=== PATIENT | female | born 1975 | race Caucasian/White ===

== ENCOUNTER 2023-03-08 09:37 | Outpatient (AMB) | payer MEDICARE, MEDICAID, SELFPAY ==
--- NOTE | 2023-03-08 10:10 | MHC.OFFVIS ---
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 Previous patient of Dr. Valentine. The patient describes her right knee pain as sharp and severe in nature. She did injure her knee approximately 1 year ago. She twisted her knee and had acute onset of pain. Since that time her symptoms have gotten worse in spite of continued non operative treatments. She has done physical therapy for 12 weeks over the last 6 months which aggravated her pain. She has also tried Tylenol and anti-inflammatory medicines which gave her minimal relief. She has had injections in the past which gave her no relief. She states that her right knee will give out several times per day. She has been wearing a knee brace which gives her mild relief. She denies any fevers or chills. Physical Exam Vital Signs: BMI result Body Mass Index 29.1 Const Other: Well-nourished well-developed very friendly female awake alert and oriented x3 in no acute distress Extrem Other: Bilateral lower extremity examination shows good capillary refill, no skin lesions noted, normal sensation light touch Right knee examination shows a minimal effusion, minimal crepitus with range motion, tenderness along her medial joint line, positive Miguel's test, no instability Results Reviewed Results Reviewed: X-rays of the patient's right knee taken today show mild diffuse joint space narrowing, no acute bony abnormalities Assessment & Plan Assessment & Plan (1) Right knee pain: Code(s): M25.561 - Pain in right knee Plan Ms. Napoles presents with progressively worsening right knee pain and mechanical symptoms most likely due to a tear of her medial meniscus. Thus, I will send the patient for an MRI of her right knee for further evaluation. If she does have a significant meniscus tear I will recommend arthroscopic surgery to optimize her future functional level. She will continue with activity modifications in the meantime. I will see the patient back once the MRI is completed to discuss the findings and treatment options. Orders: Orders XR knee RT 3V Today M25.561 - Pain in right knee MR knee RT wo con 1 Week M25.561 - Pain in right knee Coding Level of Care Code Est Pt Level 2 (55199) Diagnoses Right knee pain M25.561
[2023-03-08 10:15] VITALS: BMI 29.1
== END 2023-03-08 11:00 | disposition home or self-care (01) ==
PROVIDERS: Visit Provider Orthopaedic Surgery
DX: M25.561 Pain in right knee (principal)
CPT/HCPCS: 99212

== ENCOUNTER 2023-03-08 12:31 | Outpatient (REF) | payer MEDICARE, MEDICAID, SELFPAY ==
--- NOTE | ~2023-03-08 | XR_ITS ---
EXAMINATION: XR KNEE, RIGHT CLINICAL INFORMATION: Right knee pain COMPARISON: None available. TECHNIQUE: Three views of the right knee. FINDINGS: No evidence for acute fracture or dislocation. There is slight narrowing in the medial joint space compartment. No significant joint effusion. Patellofemoral joint space is maintained. No erosive process. XR/XR knee RT 3V IMPRESSION: No acute process. Slight narrowing in the medial joint space compartment.
== END 2023-03-08 12:32 | disposition home or self-care (01) ==
LOC: HO.HOSX 12:31
PROVIDERS: Visit Provider Orthopaedic Surgery
DX: M25.561 Pain in right knee (principal)
CPT/HCPCS: 73562; 99212

== ENCOUNTER 2023-03-17 09:48 | Outpatient (AMB) | payer MEDICARE, MEDICAID, SELFPAY ==
[2023-03-17 10:11] VITALS: BMI 29.1
--- NOTE | 2023-03-17 10:11 | A.OFFVIS_ITS ---
Intake Vital Signs 03/17/23 10:11 Height 4 ft 11 in Weight 144 lb BMI 29.1 Intake Visit Reasons: MRI Review - Right Knee Intake Note: Rebecca Khalil presents with complaints of progressively worsening right knee pain and giving way. She did undergo left knee arthroscopic surgery in the past he reports minimal discomfort in her left knee. She describes her right knee pain as sharp in nature. Most of the pain is along the medial aspect of her knee. She did injure her right knee several years ago. She twisted her knee and had acute onset of pain. Since that time her symptoms have gotten worse in spite of continued non operative treatments. She has done physical therapy for 12 weeks over the last 6 months which aggravated her pain. She has also had injections in the past which gave her minimal relief. She has tried Tylenol and anti- inflammatory medicines which gave her minimal relief. She states that her right knee will give out several times per day. Allergies acetaminophen [From Ultracet] Allergy (Mild, Verified 03/17/23 10:16) hives penicillin G Allergy (Mild, Verified 03/17/23 10:16) hives tramadol [From Ultracet] Allergy (Mild, Verified 03/17/23 10:16) hives cortisone Allergy (Intermediate, Uncoded 03/17/23 10:16) hives tramadol Allergy (Mild, Uncoded 03/17/23 10:16) hives Medication List - Last Reconciled 03/17/23 by Jonathan Valentine MD albuterol sulfate 90 mcg/actuation (Ventolin HFA) 2 puffs inhalation QID PRN cyclobenzaprine 5 mg PO TID PRN diclofenac sodium 1% grams topical BID loratadine 10 mg PO DAILY rizatriptan mg PO PFSH Social History (Updated 03/17/23 @ 10:20 by YASMIN Law) 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 Physical Exam Vital Signs: BMI result Body Mass Index 29.1 Const Other: Well-nourished well-developed very friendly female awake alert and oriented x3 in no acute distress Extrem Other: Bilateral lower extremity examination shows good capillary refill, no skin lesions noted, normal sensation light touch Right knee examination shows a minimal effusion, minimal crepitus with range of motion, tenderness along her medial joint line, positive Miguel's test, no instability Results Reviewed Results Reviewed: MRI of the patient's right knee shows mild diffuse degenerative changes as well as a tear of the anterior horn of the medial meniscus Assessment & Plan Assessment & Plan (1) Tear of medial meniscus of right knee: Code(s): S83.241A - Other tear of medial meniscus, current injury, right knee, initial encounter Plan Ms. Napoles presents with progressively worsening right knee pain and mechanical symptoms due to a tear of her medial meniscus. I had a lengthy discussion with the patient regarding the treatment options. At this point she has failed continued non operative treatments. The risks and benefits of right knee arthroscopic surgery were discussed at length with the patient. The patient wishes to proceed. She does understand that she might not get 100% relief of her symptoms depending on the severity of her degenerative changes. She will contact my office to pick a surgery date. She will follow-up as instructed. I spent 22 minutes in reviewing the patient's records and imaging studies, seeing the patient and documenting in the medical record. Coding Level of Care Code Est Pt Level 2 (20839) Diagnoses Tear of medial meniscus of right knee S83.241A
== END 2023-03-17 10:26 | disposition home or self-care (01) ==
PROVIDERS: Visit Provider Orthopaedic Surgery
DX: S83.241A Other tear of medial meniscus, current injury, right knee, initial encounter (principal)
CPT/HCPCS: 99212

== ENCOUNTER → 2023-03-17 09:48 | Outpatient (BNVA) | payer MEDICARE, MEDICAID, SELFPAY | PROVIDERS: Visit Provider Orthopaedic Surgery | DX: S83.241D Other tear of medial meniscus, current injury, right knee, subsequent encounter (principal) | CPT/HCPCS: 99212 ==

== ENCOUNTER 2023-04-08 06:17 | Day surgery (SDC) | payer MEDICARE, MEDICAID, SELFPAY ==
[2023-04-06 11:23] VITALS: BMI 29.1
[2023-04-08] VITALS (7 sets, daily range): BP systolic 105–125; BP diastolic 62–80; PULSE 63–78; RESP 15–16; TEMP 36.3–37.2; O2SAT 95–100
--- NOTE | 2023-04-08 07:26 | HO.ANESPROP2 ---
HPI - Anesthesia Eval Consult details Narrative: 47 F for right knee arthroscopy denies any Chest pain , SOB or any other symptoms PMFSH Active Problems Active Problems: All Active Problems (Updated 04/08/23 @ 06:26 by Sonya Duran RN) Tear of medial meniscus of right knee (Acute) Right knee pain (Acute) Past Medical History Medical History (Updated 04/08/23 @ 06:26 by Sonya Duran RN) Asthma Hyperthyroidism Family History Family history of problems with anesthesia: Unobtainable Surgical History Surgical History (Updated 04/08/23 @ 06:25 by Sonya Duran RN) History of partial hysterectomy History of toe surgery History of 3 sections History of arthroscopy of left knee History of shoulder surgery History of Problems with Anesthesia: No Social History Social History (Updated 03/17/23 @ 10:20 by YASMIN Law) Patient Tobacco Use Status: Current everyday Tobacco user Tobacco use type: Cigarette Cigarette Packs Per Day: 0.5 Cigarettes Per Day: 10.0 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 Meds Allergies Allergy/AdvReac Type Severity Reaction Status Date / Time acetaminophen [From Ultracet] Allergy Mild hives Verified 03/17/23 10:16 penicillin G Allergy Mild hives Verified 03/17/23 10:16 tramadol [From Ultracet] Allergy Mild hives Verified 03/17/23 10:16 cortisone Allergy Intermediate hives Uncoded 03/17/23 10:16 tramadol Allergy Mild hives Uncoded 03/17/23 10:16 Active Medications: Current Medications Clindamycin Phosphate (Cleocin) 900 mg in 50 mls @ 50 mls/hr IV PREOP ONE Stop: 04/08/23 08:16 Home Medications Medication Instructions Recorded Confirmed Last Taken Type albuterol sulfate 90 mcg/actuation 2 puff inhalation QID PRN wheezing 03/17/23 04/08/23 04/07/23 History aerosol inhaler (Ventolin HFA) cyclobenzaprine 5 mg tablet 5 mg PO TID PRN muscle spasm 03/17/23 04/08/23 Unknown History diclofenac sodium 1 % topical gel 1 g topical BID 03/17/23 04/08/23 04/07/23 History loratadine 10 mg tablet 10 mg PO DAILY 03/17/23 04/08/23 04/07/23 History rizatriptan 10 mg tablet 10 mg PO DAILY 03/17/23 04/08/23 04/07/23 History aspirin 81 mg tablet,delayed 81 mg PO DAILY 04/08/23 04/08/23 04/07/23 History release atorvastatin 20 mg tablet 20 mg PO DAILY 04/08/23 04/08/23 04/07/23 History cyanocobalamin (vitamin B-12) 1,000 mcg PO DAILY 04/08/23 04/08/23 04/07/23 History 1,000 mcg tablet (Vitamin B-12) doxycycline hyclate 100 mg tablet 100 mg PO Q12H 04/08/23 04/08/23 Unknown History levothyroxine 100 mcg tablet 100 mcg PO DAILY 04/08/23 04/08/23 04/07/23 History pantoprazole 40 mg tablet,delayed 40 mg PO DAILY 04/08/23 04/08/23 04/07/23 History release Exam Exam Date and Time: April 08, [id number] Height,Weight and Vital Signs: Height 4 ft 11 in Weight 65.317 kg Last Vital Signs Temp 98.9 F 04/08/23 06:42 Pulse 76 04/08/23 06:42 Resp 16 04/08/23 06:42 BP 105/67 04/08/23 06:42 Pulse Ox 95 04/08/23 06:42 O2 Del Method Room Air 04/08/23 06:42 Airway Mallampati Class: III Denture: Upper and Lower Loose/Missing/Broken Teeth: Yes Assessment and Plan Assessment Anesthesia Assessment: Anesthesia Plan Discussed and Chart Reviewed Final Anesthetic Review Family History of Problems with Anesthesia: Unobtainable History of Problems with Anesthesia: No NPO: Yes ASA Class: II Final Preanesthetic Review: Meds/Allgs Chart Reviewed, Consent Obtained/Reviewed and Anes Risks/Benef Reviewed Patient Risk: Intermediate Procedure Risk: Intermediate Anesthetic Plan Anesthetic Plan: GA and Agree w/ Assess. and Plan Disposition: Standard PACU
--- NOTE | 2023-04-08 08:34 | PM.OP ---
Brief Operative Note Date of Service: 04/08/23 Pre-op diagnosis: Right knee medial meniscus tear Post-op diagnosis: same Procedure: Right knee arthroscopic partial medial meniscectomy Surgeon: Jonathan Valentine MD Anesthesia: GLMA Was an Layup Worker used for this Procedure?: No Estimated blood loss (mL): 10 Tourniquet time (min): 0 Pathology: none sent Condition: stable Disposition: PACU
--- NOTE | 2023-04-08 08:35 | W.PM.OPN ---
Operative Note Operative Note Date of Service: 04/08/23 Narrative: After the patient was identified as Rebecca Napoles and their right knee was initialed by myself they were brought to the operating room where general anesthesia was induced by the anesthesiologist in routine fashion. Because of the patient's allergy to penicillin she was given 900 mg of IV clindamycin for infection prophylaxis. A formal time-out was completed. The patient's right lower extremity was prepped and draped in sterile fashion. Marcaine with epinephrine was injected into the planned incision sites as well as their left knee joint. A # 11 scalpel blade was used to make an anterolateral portal 1 cm proximal to the joint line and 1 cm lateral to the patellar tendon. Blunt trocar technique was used into the suprapatellar pouch with the knee in extension. Diagnostic arthroscopy showed multiple bands of thickened plica which would be excised at the end of the procedure. There were no loose bodies or abnormalities found in either the medial or lateral gutters. There were diffuse grade 1 degenerative changes of the undersurface of the patella as well as grade 1 degenerative changes of the trochlear groove. The patient's knee was flexed to 45 degrees and a valgus force was placed upon it. The medial compartment was entered. An anteromedial portal was made 1 cm proximal to the joint line and 1 cm medial to the patellar tendon. Probing of the medial meniscus showed a radial tear of the anterior horn. A partial medial meniscectomy was performed using the arthroscopic shaver. Following the partial meniscectomy the remainder of the meniscus tissue was stable. There were diffuse grade 1 degenerative changes of the medial femoral condyle as well as diffuse grade 1 degenerative changes of the medial tibial plateau. The patient's knee was then placed into a neutral position. There was no injury to the anterior cruciate ligament. The patient's knee was then placed into the figure of 4 position and the lateral compartment was entered. There were minimal degenerative changes of the lateral femoral condyle and lateral tibial plateau. There was no evidence of lateral meniscus tearing. The patient's knee was once again brought into extension and the suprapatellar pouch was entered. The arthroscopic shaver and the ArthroCare Wand were used to excise the thickened bands of plica. The knee joint was irrigated and then drained. All arthroscopic instruments were removed. The 2 portals were closed with 3-0 nylon interrupted suture. The knee joint was injected with Marcaine. Dry sterile dressing and Kavon bandages were placed over the patient's knee. The patient was woken and expand the operating room. They were transferred to the recovery room in stable condition.
[2023-04-08] MEDS: oxyCODONE HCl Immed Release 5 MG TABLET PO (09:17)
== END 2023-04-08 09:45 | disposition home or self-care (01) ==
PROVIDERS: PCP Nurse Practitioner Family; Visit Provider Orthopaedic Surgery
PROC: (CPT 29870; principal; 2023-04-08 07:30)
DX: S83.241A Other tear of medial meniscus, current injury, right knee, initial encounter (principal); M17.11 Unilateral primary osteoarthritis, right knee; M67.51 Plica syndrome, right knee; X50.1XXA Overexertion from prolonged static or awkward postures, initial encounter; Y93.9 Activity, unspecified; Y92.9 Unspecified place or not applicable; Y99.8 Other external cause status; J45.909 Unspecified asthma, uncomplicated; E21.3 Hyperparathyroidism, unspecified; Z79.899 Other long term (current) drug therapy; Z79.82 Long term (current) use of aspirin; Z88.0 Allergy status to penicillin; Z88.8 Allergy status to other drugs, medicaments and biological substances; F17.210 Nicotine dependence, cigarettes, uncomplicated
CPT/HCPCS: 29881; J0171; J1100; J2250; J2405; J2795; J3010

== ENCOUNTER → 2023-04-08 06:17 | Outpatient (BNV) | payer MEDICARE, MEDICAID, SELFPAY | PROVIDERS: PCP Nurse Practitioner Family; Visit Provider Orthopaedic Surgery | DX: S83.231A Complex tear of medial meniscus, current injury, right knee, initial encounter (principal) | CPT/HCPCS: 29881 ==

== ENCOUNTER 2023-04-21 09:12 | Outpatient (AMB) | payer MEDICARE, MEDICAID, SELFPAY ==
--- NOTE | 2023-04-21 09:14 | MHC.OFFVIS ---
Intake Intake Visit Reasons: PO-Rt Knee Arthroscopy 04/08/23 Intake Note: Pt presents to the office today for a PO rt knee arthroscopy. Pt states she has pain when she walks and bends her right knee. Pt states she doesn't have swelling. Pt states she can feel severe tightness in her knee when she bends it. Pt states she has not tried ice or heat for the pain. She denies any fevers or chills. She does not take any medicine for her discomfort. Allergies acetaminophen [From Ultracet] Allergy (Mild, Verified 04/21/23 09:14) hives penicillin G Allergy (Mild, Verified 04/21/23 09:14) hives tramadol [From Ultracet] Allergy (Mild, Verified 04/21/23 09:14) hives cortisone Allergy (Intermediate, Uncoded 04/21/23 09:14) hives tramadol Allergy (Mild, Uncoded 04/21/23 09:14) hives Medication List - Last Reconciled 04/21/23 by Jonathan Valentine MD albuterol sulfate 90 mcg/actuation (Ventolin HFA) 2 puffs inhalation QID PRN aspirin 81 mg PO DAILY atorvastatin 20 mg PO DAILY cyanocobalamin (vitamin B-12) (Vitamin B-12) 1,000 mcg PO DAILY cyclobenzaprine 5 mg PO TID PRN diclofenac sodium 1% 1 g topical BID doxycycline hyclate 100 mg PO Q12H levothyroxine 100 mcg PO DAILY loratadine 10 mg PO DAILY oxycodone 5 mg PO Q6H PRN pantoprazole 40 mg PO DAILY rizatriptan 10 mg PO DAILY PFSH Medical History Asthma Hyperthyroidism Surgical History History of partial hysterectomy History of toe surgery History of 3 sections History of arthroscopy of left knee History of shoulder surgery Social History (Updated 04/21/23 @ 09:20 by Delores Sullivan MA) Household Members: Significant Other Housing: House Alcohol intake: never Patient Tobacco Use Status: Current everyday Tobacco user Tobacco use type: Cigarette Cigarette Packs Per Day: 0.5 Cigarettes Per Day: 10.0 Current occupational status: disabled 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 Napoles is doing well after undergoing right knee arthroscopic surgery on April 08 1023. Her sutures were removed and Steri-Strips placed over her incisions. She will gradually progress to activities as tolerated. She will contact me prior to her follow-up appointment in 6 weeks should any questions or concerns arise. Coding Level of Care Code Global (60589) Diagnoses Right knee pain M25.561
== END 2023-04-21 09:42 | disposition home or self-care (01) ==
PROVIDERS: Visit Provider Orthopaedic Surgery
DX: M25.561 Pain in right knee (principal)
CPT/HCPCS: 99024

== ENCOUNTER → 2023-04-21 09:12 | Outpatient (BNVA) | payer MEDICARE, MEDICAID, SELFPAY | PROVIDERS: Visit Provider Orthopaedic Surgery ==

== ENCOUNTER 2023-06-02 09:36 | Outpatient (AMB) | payer MEDICARE, MEDICAID, SELFPAY ==
--- NOTE | 2023-06-02 10:03 | MHC.OFFVIS ---
Intake Intake Visit Reasons: PO -Rt Knee Intake Note: This patient presents for a post op appointment, right knee as on 04/08/23. The patient reports mild intermittent discomfort in her right knee. She denies any fevers or chills. She notices the discomfort mostly when she is sitting with her legs crossed over each other. She denies any locking or giving way. She does use a topical pain cream which gives her good relief. Allergies acetaminophen [From Ultracet] Allergy (Mild, Verified 06/02/23 10:08) hives penicillin G Allergy (Mild, Verified 06/02/23 10:08) hives tramadol [From Ultracet] Allergy (Mild, Verified 06/02/23 10:08) hives cortisone Allergy (Intermediate, Uncoded 06/02/23 10:08) hives tramadol Allergy (Mild, Uncoded 06/02/23 10:08) hives Medication List - Last Reconciled 06/02/23 by Elisabeth Campbell RN albuterol sulfate 90 mcg/actuation (Ventolin HFA) 2 puffs inhalation QID PRN aspirin 81 mg PO DAILY atorvastatin 20 mg PO DAILY cyanocobalamin (vitamin B-12) (Vitamin B-12) 1,000 mcg PO DAILY cyclobenzaprine 5 mg PO TID PRN diclofenac sodium 1% 1 g topical BID doxycycline hyclate 100 mg PO Q12H levothyroxine 100 mcg PO DAILY loratadine 10 mg PO DAILY oxycodone 5 mg PO Q12H PRN pantoprazole 40 mg PO DAILY rizatriptan 10 mg PO DAILY PFSH Medical History Asthma Hyperthyroidism Surgical History History of partial hysterectomy History of toe surgery History of 3 sections History of arthroscopy of left knee History of shoulder surgery Social History (Updated 04/21/23 @ 09:20 by Delores Sullivan MA) Household Members: Significant Other Housing: House Alcohol intake: never Patient Tobacco Use Status: Current everyday Tobacco user Tobacco use type: Cigarette Cigarette Packs Per Day: 0.5 Cigarettes Per Day: 10.0 Current occupational status: disabled 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 Napoles continues to do well after undergoing right knee arthroscopic surgery on 04/08/2023. She will continue with her home exercise program. Activity modifications were discussed at length with the patient. She will contact me prior to her follow-up appointment in 3 months should her symptoms worsen in any way. Feel free to call me at any time should questions regarding her orthopedic management arise. Coding Level of Care Code Global (93214) Diagnoses Right knee pain M25.561
== END 2023-06-02 10:26 | disposition home or self-care (01) ==
PROVIDERS: PCP Nurse Practitioner Family; Visit Provider Orthopaedic Surgery
DX: M25.561 Pain in right knee (principal)
CPT/HCPCS: 99024

== ENCOUNTER → 2023-06-02 09:36 | Outpatient (BNVA) | payer MEDICARE, MEDICAID, SELFPAY | PROVIDERS: PCP Nurse Practitioner Family; Visit Provider Orthopaedic Surgery ==

== ENCOUNTER 2023-09-29 10:45 | Outpatient (AMB) | payer MEDICARE, MEDICAID, SELFPAY ==
--- NOTE | 2023-09-29 11:12 | MHC.OFFVIS ---
Intake Vital Signs 09/29/23 11:37 Height 4 ft 11 in Weight 147 lb BMI 29.7 Intake Visit Reasons: Left knee pain Intake Note: Rebecca is a 48 year old female who presents with complaints of progressively worsening left knee pain and giving way. The patient did undergo right knee arthroscopic surgery on 04/08/2023. She denies any pain in her right knee. She describes her left knee pain as sharp in nature. She did injure her left knee approximately 1 year ago. She twisted her knee and had acute onset of pain. Since that time her symptoms have gotten worse. Most of the pain is along the medial aspect of her knee. She states that her left knee will give out several times per day. She has done physical therapy which aggravated her pain. She has also tried Tylenol and anti-inflammatory medicines which gave her minimal relief. She has had cortisone injections in the past which gave her only temporary relief. Allergies acetaminophen [From Ultracet] Allergy (Mild, Verified 09/29/23 11:39) hives penicillin G Allergy (Mild, Verified 09/29/23 11:39) hives tramadol [From Ultracet] Allergy (Mild, Verified 09/29/23 11:39) hives cortisone Allergy (Intermediate, Uncoded 06/02/23 10:08) hives tramadol Allergy (Mild, Uncoded 06/02/23 10:08) hives Medication List - Last Reconciled 09/29/23 by Jonathan Valentine MD albuterol sulfate 90 mcg/actuation (Ventolin HFA) 2 puffs inhalation QID PRN aspirin 81 mg PO DAILY atorvastatin 20 mg PO DAILY cyanocobalamin (vitamin B-12) (Vitamin B-12) 1,000 mcg PO DAILY cyclobenzaprine 5 mg PO TID PRN diclofenac sodium 1% 1 g topical BID doxycycline hyclate 100 mg PO Q12H levothyroxine 100 mcg PO DAILY loratadine 10 mg PO DAILY oxycodone 5 mg PO Q12H PRN pantoprazole 40 mg PO DAILY rizatriptan 10 mg PO DAILY PFSH Medical History Asthma Hyperthyroidism Surgical History (Updated 09/29/23 @ 11:41 by Ana Moscoso CMA) Hx of right knee surgery (~09/08/23) History of partial hysterectomy History of toe surgery History of 3 sections History of arthroscopy of left knee History of shoulder surgery Social History (Updated 04/21/23 @ 09:20 by Delores Sullivan MA) Household Members: Significant Other Housing: House Alcohol intake: never Patient Tobacco Use Status: Current everyday Tobacco user Tobacco use type: Cigarette Cigarette Packs Per Day: 0.5 Cigarettes Per Day: 10.0 Current occupational status: disabled 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 Physical Exam Vital Signs: BMI result Body Mass Index 29.7 Const Other: Well-nourished well-developed very friendly female awake alert and oriented x3 in no acute distress Extrem Other: Bilateral lower extremity examination shows good capillary refill, no skin lesions noted, normal sensation light touch Left knee examination shows a minimal effusion, minimal crepitus with range of motion, tenderness along her medial joint line, positive Miguel's test, no instability Results Reviewed Results Reviewed: Standing full weight-bearing x-rays of the patient's left knee show minimal joint space narrowing, no acute bony abnormalities Assessment & Plan Assessment & Plan (1) Left knee pain: Code(s): M25.562 - Pain in left knee Plan Ms. Napoles presents with progressively worsening left knee pain and mechanical symptoms most likely due to a tear of her medial meniscus. Thus, I will send the patient for an MRI of her left knee for further evaluation. I will see her back once the MRI is completed to discuss the findings and treatment options. Feel free to call me at any time should questions regarding her orthopedic management arise. I spent 22 minutes in reviewing the patient's records and imaging studies, seeing the patient and documenting in the medical record. Orders: Orders MR knee LT wo con Today S83.242A - Other tear of medial meniscus, current injury, left knee, initial encounter Coding Level of Care Code Est Pt Level 2 (00000) Diagnoses Left knee pain M25.562
[2023-09-29 11:37] VITALS: BMI 29.7
== END 2023-09-29 11:53 | disposition home or self-care (01) ==
PROVIDERS: PCP Nurse Practitioner Family; Visit Provider Orthopaedic Surgery
DX: M25.562 Pain in left knee (principal)
CPT/HCPCS: 99213

== ENCOUNTER → 2023-09-29 10:45 | Outpatient (BNVA) | payer MEDICARE, MEDICAID, SELFPAY | PROVIDERS: PCP Nurse Practitioner Family; Visit Provider Orthopaedic Surgery | DX: M25.562 Pain in left knee (principal) | CPT/HCPCS: 99212 ==

== ENCOUNTER → 2023-11-15 07:56 | Outpatient (REF) | payer MEDICARE, MEDICAID, SELFPAY ==
--- NOTE | ~2023-11-15 | NM_ITS ---
EXAMINATION: RADIONUCLIDE SOLID FOOD GASTRIC EMPTYING 4-HOUR STUDY CLINICAL INFORMATION: Epigastric pain. COMPARISON: No previous gastric emptying study is available for comparison. TECHNIQUE: A standard meal consisting of 4 oz of Egg Beaters brand equivalent tagged with 1.0 mCi Tc-99m Sulfur Colloid, 8 oz water and 2 slices of toast with jelly was administered orally to the patient. Images were obtained using a dual head gamma camera in the anterior and posterior projections over of the stomach immediately post ingestion and at hourly intervals up to 4 hours post ingestion. The anterior and posterior counts at each time interval were averaged using the geometric mean and expressed as percentage of the immediate post ingestion counts. FINDINGS: There is good visualization of activity in the stomach immediately post ingestion. As the study progresses, there is good clearance of activity from the stomach and visualization of progressively increasing small bowel activity. By the end of the study, there is almost no retention noted in the stomach. Retention in the stomach at each time interval was: 1 hour 60% (normal 37%-90%) 2 hours 31% (normal 30%-60%) 3 hours 16% 4 hours 9% (normal 0%-10%) NM/NM gastric emptying study IMPRESSION: Normal 4-hour solid food gastric emptying study. Gastric emptying study grading per JNMT Consensus Recommendations in 2008: https://tech.snmjournals.org/content/36/1/44 Grade 1 (mild retention): 11-20% at 4 hours Grade 2 (moderate retention): 21-35% at 4 hours Grade 3 (severe retention): 36-50% at 4 hours Grade 4 (very severe retention): >50% retention at 4 hours
== END ==
LOC: HO.NUCMED 07:56
PROVIDERS: Visit Provider Internal Medicine Gastroenterology
DX: R10.13 Epigastric pain (principal)
CPT/HCPCS: 78264; A9541

== ENCOUNTER 2024-08-13 13:52 | Outpatient (AMB) | payer MEDICARE, MEDICAID, SELFPAY ==
--- NOTE | 2024-08-13 13:55 | A.SPINEOV_ITS ---
Vital Signs 08/13/24 14:05 Height 4 ft 11 in Weight 147 lb BMI 29.7 Intake Visit Reasons: lower back pain Intake Note: Ms. Napoles is here today c/o low back pain. 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 Allergies acetaminophen [From Ultracet] Allergy (Mild, Verified 08/13/24 14:06) hives penicillin G Allergy (Mild, Verified 08/13/24 14:06) hives tramadol [From Ultracet] Allergy (Mild, Verified 08/13/24 14:06) hives cortisone Allergy (Intermediate, Uncoded 06/02/23 10:08) hives tramadol Allergy (Mild, Uncoded 06/02/23 10:08) hives Physical Exam Vital Signs: BMI result Body Mass Index 29.7 Assessment & Plan Assessment & Plan (1) Lumbar disc herniation: Code(s): M51.26 - Other intervertebral disc displacement, lumbar region Category: Medical Plan This is a self-referred 49-year-old female presents to the office today for evaluation of what 1 month history of severe right leg pain. She awoke with it on the morning of July 13 and since that time it is not relented. It is a severe pain that starts in her buttock and radiates down to the top of her foot. She also has feelings of weakness and loss of sensation in the right foot. No cauda equina symptoms. She has been trialing various algs-ybx-pnkheuy remedies including lidocaine patches, CBD creams, anti-inflammatories, muscle relaxers, Tylenol, gabapentin. She stopped the gabapentin because she did not like how it made her feel. She has been to the emergency room 3 times and underwent a CT scan which showed some disc degeneration. She has attempted physical therapy but it was too painful so they discharged her. She comes in today for an evaluation. The pain is extremely intense, she is unable to sleep, unable to drive get up and move around well at all. The only position she can get comfortable sleeping on her stomach. PMH: History of hyperthyroidism, she had Graves disease and underwent radionucleotide ablation and has been on supplementation since that time and relatively stable. History of migraines, high cholesterol, bilateral knee surgery, , left shoulder surgery, partial hysterectomy, foot surgery Social hx: She smokes half a pack a day, does not drink use any recreational drugs Medications: Levothyroxine, Aimovig, diclofenac, vitamin B12, Zofran, atorvastatin, pantoprazole, tizanidine, meloxicam, Motrin, Tylenol Allergies: Penicillin, trazodone, Ultracet, Physical exam: Patient is awake alert oriented, she is very uncomfortable, walking with an antalgic gait, a lot of difficulty just getting out of a chair. Positive straight leg raise at 20 degrees. Motor exam reveals she has full strength of bilateral lower extremities with intact reflexes. Imaging review: There is a CT scan done at [facility] and this just shows degenerative changes of L4 and L5 but I can not see the nerves or the disc well given the limitations of CT scan. Impression: 49-year-old female who presents with what sounds like an L4-5 herniated disc on the right with fairly classic L5 radiculopathy. She has been doing conservative treatment for a month but the pain is very severe. She attempted physical therapy but it was too intense so they told her that she should go get herself evaluated as they are unable to treat her. She has trialed multiple kjjf-bae-uwloqbs regimens as outlined above. She had a CT scan done but obviously there limitations with that. I will order an urgent MRI. Thank you for allowing us to care for your patient. The total time spent with this visit with this patient was 45 minutes reviewing history, physical exam, lumbar CT imaging review, and implementation of treatment plan or further diagnostic testing Jono Munoz MD,PhD [facility] Orders: Orders MR lumbar spine wo con Today M51.16 - Intervertebral disc disorders with radiculopathy, lumbar region Coding Level of Care Code New Pt Level 4 (18939) Diagnoses Lumbar disc herniation M51.26
[2024-08-13 14:05] VITALS: BMI 29.7
== END 2024-08-13 14:56 | disposition home or self-care (01) ==
PROVIDERS: PCP Nurse Practitioner Family; Visit Provider Physician Assistant
DX: M51.26 Other intervertebral disc displacement, lumbar region (principal)
CPT/HCPCS: 99204

== ENCOUNTER → 2024-08-13 13:52 | Outpatient (BNVA) | payer MEDICARE, MEDICAID, SELFPAY | PROVIDERS: PCP Nurse Practitioner Family; Visit Provider Physician Assistant | DX: M51.26 Other intervertebral disc displacement, lumbar region (principal) | CPT/HCPCS: 99202 ==

== ENCOUNTER 2024-08-16 11:25 | Outpatient (REF) | payer MEDICARE, MEDICAID, SELFPAY ==
--- NOTE | ~2024-08-16 | XR_ITS ---
EXAMINATION: XR SHOULDER 2 OR MORE VIEWS RIGHT HISTORY: M25.511 - Pain in right shoulder COMPARISON: There are no prior studies available for comparison. FINDINGS: Two views of the right shoulder are submitted. Osseous mineralization is normal. There is no fracture or dislocation. There are postsurgical changes involving the the AC joint. The glenohumeral joint is maintained. There are suture anchors in the humeral head. The soft tissues are unremarkable. XR/XR shoulder RT min 2V IMPRESSION: Postsurgical changes involving the right shoulder is scribe. No evidence of fracture. Electronically signed by: Solomon Gurrola MD 08/20/2024 02:16 PM SHELLY
== END 2024-08-16 11:26 | disposition home or self-care (01) ==
LOC: HO.HOSX 11:25
PROVIDERS: Visit Provider Orthopaedic Surgery
DX: M25.511 Pain in right shoulder (principal); M54.2 Cervicalgia; M51.26 Other intervertebral disc displacement, lumbar region
CPT/HCPCS: 73030; 99212

== ENCOUNTER 2024-08-16 14:40 | Outpatient (AMB) | payer MEDICARE, MEDICAID, SELFPAY ==
--- NOTE | 2024-08-16 14:43 | A.SPINEOV_ITS ---
Intake Visit Reasons: Lumbar MRI f/u Intake Note: Ms. Napoles is here to F/u on the results to her Lumbar MRI. 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 This shows a small but right-sided L4-5 posterior disc herniation that is displacing the right L5 nerve root posteriorly. Dr. Munoz and I reviewed this together, we have met with the patient, and offered her L4-5 microdiskectomy right side. We quoted success rate at 90%. She has done conservative treatment in the form of tincture of time, anti-inflammatories, Tylenol. She trialed physical therapy but they sent her home because she was in just too much pain to tolerate it. Pt was given risk and benefits of surgery including but not limited to infection, hematoma , nerve injury,durotomy, weakness,bowel/bladder injury, persistent pain, recurrent disc herniation as well as the option to continue with conservative treatment and patient wishes to proceed with surgery. Pt is aware they should stop their motrin, aspirin 7 days prior to surgery. All questions were answered to the best of our ability. If there is anything about this patients medical history that we have overlooked or concerns you have about us proceeding with surgery we would appreciate any input you can offer. Total amount of time spent in this visit was 20 minutes in discussion of symp toms, lumbar MRI imaging results and subsequent plan of care Jono Munoz MD,PhD [facility] Coding Level of Care Code Est Pt Level 3 (52930) Diagnoses Lumbar disc herniation M51.26
== END 2024-08-16 15:53 | disposition home or self-care (01) ==
PROVIDERS: PCP Nurse Practitioner Family; Visit Provider Physician Assistant
DX: M51.26 Other intervertebral disc displacement, lumbar region (principal)
CPT/HCPCS: 99213

== ENCOUNTER 2024-08-16 15:17 | Outpatient (AMB) | payer MEDICARE, MEDICAID, SELFPAY ==
[2024-08-16 15:22] VITALS: BMI 29.7
--- NOTE | 2024-08-16 15:22 | MHC.OFFVIS ---
Vital Signs 08/16/24 15:22 Height 4 ft 11 in Weight 147 lb BMI 29.7 Intake Visit Reasons: NProb- Right shoulder pain Intake Note: Rebecca is a 49 year old female who presents with complaints pain along the posterior aspect of her right shoulder. She also has intermittent neck pain. The patient states that she is due to undergo low back surgery by Dr. Munoz over the next few weeks. She denies any weakness in her shoulder. She has undergone right shoulder rotator cuff repair surgery in the past. She denies any fevers or chills. Allergies acetaminophen [From Ultracet] Allergy (Mild, Verified 08/16/24 15:23) hives penicillin G Allergy (Mild, Verified 08/16/24 15:23) hives tramadol [From Ultracet] Allergy (Mild, Verified 08/16/24 15:23) hives cortisone Allergy (Intermediate, Uncoded 08/16/24 15:23) hives tramadol Allergy (Mild, Uncoded 08/16/24 15:23) hives Medication List - Last Reviewed 08/16/24 by NAYAN Baires albuterol sulfate 90 mcg/actuation (Ventolin HFA) 2 puffs inhalation QID PRN aspirin 81 mg PO DAILY atorvastatin 20 mg PO DAILY cyanocobalamin (vitamin B-12) (Vitamin B-12) 1,000 mcg PO DAILY cyclobenzaprine 5 mg PO TID PRN diclofenac sodium 1% 1 g topical BID levothyroxine 100 mcg PO DAILY loratadine 10 mg PO DAILY pantoprazole 40 mg PO DAILY rizatriptan 10 mg PO DAILY PFSH Medical History (Updated 08/16/24 @ 15:46 by Jonathan Valentine MD) Asthma Hyperthyroidism Surgical History (Updated 09/29/23 @ 11:41 by Ana Moscoso CMA) Hx of right knee surgery (~04/08/23) History of partial hysterectomy History of toe surgery History of 3 sections History of arthroscopy of left knee History of shoulder surgery Social History (Updated 04/21/23 @ 09:20 by Delores Sullivan CMA) Household Members: Significant Other Housing: House Alcohol intake: never Patient Tobacco Use Status: Current everyday Tobacco user Tobacco use type: Cigarette Cigarette Packs Per Day: 0.5 Cigarettes Per Day: 10.0 Current occupational status: disabled 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 Physical Exam Vital Signs: BMI result Body Mass Index 29.7 Const Other: Well-nourished well-developed very friendly female awake alert and oriented x3 in no acute distress Neck Other: Cervical spine examination shows positive Spurling's test, pain with range of motion, tenderness along her right-sided paraspinal muscles Extrem Other: Right shoulder examination shows full range of motion when compared to her left shoulder, 5/5 strength with supraspinatus testing, minimal discomfort with range of motion Results Reviewed Results Reviewed: X-rays of the patient's right shoulder taken today show bony changes consistent with distal clavicle excision and acromioplasty, 2 suture anchors within the proximal humerus with no signs of loosening Assessment & Plan Assessment & Plan (1) Neck pain: Code(s): M54.2 - Cervicalgia Category: Medical Plan Ms. Napoles presents with pain along the posterior aspect of her right shoulder most likely due to cervical spine pathology. At this point the patient's symptoms are tolerable to her. We will hold off on getting an MRI. The patient will follow-up for her low back surgery next month as scheduled. I will see her back once she has recovered from surgery. Feel free to call me at any time should questions regarding her orthopedic management arise. I spent 20 minutes in reviewing the patient's records and imaging studies, seeing the patient and documenting in the medical record. Orders: Orders XR shoulder RT min 2V Today M25.511 - Pain in right shoulder Coding Level of Care Code Est Pt Level 3 (23294) Complex EM visit Add On G2211 Diagnoses Neck pain M54.2
== END 2024-08-16 15:37 | disposition home or self-care (01) ==
PROVIDERS: PCP Nurse Practitioner Family; Visit Provider Orthopaedic Surgery
DX: M54.2 Cervicalgia (principal)
CPT/HCPCS: 99213; G2211

== ENCOUNTER → 2024-08-27 12:45 | Outpatient (BNV) | payer MEDICARE, MEDICAID, SELFPAY | PROVIDERS: Visit Provider Internal Medicine | DX: R94.31 Abnormal electrocardiogram [ECG] [EKG] (principal) | CPT/HCPCS: 93010 ==

== ENCOUNTER 2024-09-06 06:36 | Day surgery (SDC) | payer MEDICARE, MEDICAID, SELFPAY ==
--- NOTE | 2024-08-27 | ECG_ITS ---
Test Reason : PREOP Blood Pressure : */* mmHG Vent. Rate : 60 BPM Atrial Rate : 60 BPM P-R Int : 134 ms QRS Dur : 74 ms QT Int : 456 ms P-R-T Axes : 48 20 -2 degrees QTcB Int : 456 ms Normal sinus rhythm Nonspecific ST and T wave abnormality Abnormal ECG No previous ECGs available Referred By: Neli Potts Electronically Signed By: COLLEEN CABALLERO
[2024-08-27 12:01] VITALS: BP 120/69; PULSE 81; RESP 16; BMI 29.7
[2024-08-27 13:22] LABS: Hemoglobin 14.5 g/dl (12.0-16.0); Mean Corpuscular HGB Conc 32.2 g/dl (31.0-35.0); Mean Corpuscular Hemoglobin 29.7 pg (27.0-33.0); Mean Corpuscular Volume 92.2 fL (80.0-98.0); Mean Platelet Volume 9.6 fL (9.4-12.3); Platelet Count 330 X10*3/uL (160-400); Red Blood Count 4.88 X10*6/uL (4.20-5.50); Red Cell Distribution Width 12.3 % (11.0-16.0); White Blood Count 10.8 X10*3/uL (4.8-10.8)
[2024-08-27 13:50] LABS: Anion Gap 13 (12-20); Blood Urea Nitrogen 11 mg/dL (9-16); Calcium 9.5 mg/dL (8.4-10.2); Carbon Dioxide 25 mmol/L (22-29); Chloride 108 mmol/L (96-108); Creatinine Clr Calc Pharmacy 71.7; Estimated Glomerular Filt Rate > 60; Glucose Random 99 mg/dL (60-115); Potassium 3.9 mmol/L (3.3-5.1); Sodium 142 mmol/L (135-145)
--- NOTE | ~2024-09-06 | FL_ITS ---
EXAMINATION: FL GUIDANCE ONLY HISTORY: L4-L5 microdiscectomy Right COMPARISON: None available. TECHNIQUE: Fluoroscopy time: Less than 1 minute. Cumulative Dose: 1.58 mGy. DAP: 0.317 mGym2 Images: 2. FINDINGS: Fluoroscopic spot films of the lumbar spine in the lateral projection demonstrate a probe directed toward the L4 vertebral body from a posterior approach and a probe directed toward the L4-5 intervertebral disc space from a posterior approach. FL/FL guidance in OR IMPRESSION: Fluoroscopy during procedure. Please see procedure report for additional information. Electronically signed by: Solomon Gurrola MD 09/06/2024 10:36 AM [facility]
--- OUTSIDE RECORDS SUMMARY | 2024-09-06 06:38 | XMS_ITS | Clinical Summary ---
Author Organization [facility] Address [address] [place] [address] Care Team Providers Care Automotive Engineering Technician Name Role Phone Karma Mace Primary Care Provider [phone] Allergies Active Allergy Reactions Criticality Noted Date Comments Adhesive Tape Cortisone Hives Penicillins Hives Tramadol Hives Tramadol-Acetaminophen Hives Trazodone Other (See Comments) 02/23/2022 Medications Medication Sig Dispensed Refills Start Date End Date Status levothyroxine (SYNTHROID, LEVOXYL) tablet 112 mcg levothyroxine 112 mcg tablet 0 Active omeprazole (PRILOSEC) 20 MG capsule omeprazole 20 mg capsule,delayed release 0 Active PARoxetine (PAXIL) 20 MG tablet paroxetine 20 mg tablet 0 Active SUMAtriptan (IMITREX) 50 MG tablet sumatriptan 50 mg tablet 0 Active SHIRA 0.35 MG tablet 0 01/09/2018 Active venlafaxine (EFFEXOR-XR) 75 MG 24 hr capsule 0 01/09/2018 Active oxyCODONE (ROXICODONE) 5 MG immediate release tablet Take 1 to 2 tabs every 4 hours as needed for pain 60 tablet 0 08/07/2019 Active Norethindrone (SHIRA PO) Shira 0.35 mg tablet TAKE 1 TABLET BY MOUTH EVERY DAY 0 Active cyclobenzaprine (FLEXERIL) 5 MG tablet cyclobenzaprine 5 mg tablet 0 Active escitalopram (LEXAPRO) tablet 10 mg Take 10 mg by mouth daily. 0 09/23/2020 Active hydrOXYzine (ATARAX) 25 MG tablet Take 25 mg by mouth 3 (three) times a day as needed. for anxiety 0 10/14/2020 Active nortriptyline (PAMELOR) 10 MG capsule nortriptyline 10 mg capsule TAKE 1 CAPSULE BY MOUTH AT BEDTIME 0 Active HYDROcodone-aceta minophen (NORCO) 5-325 MG per tablet Take 1-2 tabs every 8 hours as needed for pain 40 tablet 0 04/14/2021 Active Diclofenac Sodium 1 % GEL PLEASE SEE ATTACHED FOR DETAILED DIRECTIONS 0 02/06/2022 Active Aspirin Low Dose 81 MG EC tablet Take 1 tablet (81 mg total) by mouth daily. 0 04/28/2022 Active atorvastatin (LIPITOR) tablet 20 mg 0 06/06/2022 Active Aimovig 70 MG/ML SOAJ INJECT 70 MG UNDER THE SKIN EVERY 28 DAYS 0 05/28/2022 Active meclizine (ANTIVERT) 12.5 MG tablet TAKE 1 TABLET BY MOUTH 3 TIMES A DAY NEEDED FOR DIZZINESS FOR 7 DAYS 0 04/15/2022 Active ondansetron (ZOFRAN) 8 MG tablet TAKE 1 TABLET BY MOUTH EVERY 8 HOURS NEEDED FOR NAUSEA AND VOMITING FOR 14 DAYS 0 05/27/2022 Active atorvastatin (LIPITOR) tablet 20 mg Take 1 tablet (20 mg total) by mouth. 0 05/10/2022 Active dicyclomine (BENTYL) 10 MG capsule TAKE 1 TABLET ORALLY 2-4 TIMES A DAY 0 04/21/2022 Active pantoprazole (PROTONIX) 20 MG tablet Take 1 tablet (20 mg total) by mouth. 0 04/28/2022 Active Active Problems Problem Noted Date Diagnosed Date Chronic right shoulder pain 08/29/2018 Postop check 04/06/2018 Social History Tobacco Use Types Packs/Day Years Used Date Smoking Tobacco: Former Smokeless Tobacco: Never Alcohol Use Standard Drinks/Week Comments No 0 (1 standard drink = 0.6 oz pur e alcohol) Sex and Gender Information Value Date Recorded Sex Assigned at Not on file Gender Identity Not on file Sexual Orientation Not on file Job Start Date Occupation Industry Not on file Not on file Not on file Last Filed Vital Signs Vital Sign Reading Time Taken Comments Blood Pressure - - Pulse - - Temperature - - Respiratory Rate - - Oxygen Saturation - - Inhaled Oxygen Concentration - - Weight 64.4 kg (142 lb) 01/11/2018 2:21 PM EDT Height 149.9 cm (4' 11 ) 01/11/2018 2:21 PM EDT Body Mass Index 28.68 01/11/2018 2:21 PM EDT Plan of Treatment Health Maintenance Due Date Last Done Comments Hepatitis B Vaccines (1 of 3 - 3-dose series) 1973 Hepatitis C Screening 1973 Depression Screening 1985 Preventative Health Evaluation 1991 DTap / Tdap / Td (1 - Tdap) 1992 Cervical Cancer Screening (Pap Smear) 1994 Colon Cancer Screening (Colonoscopy) 2018 Breast Cancer Screening (Mammogram) 2023 Shingrix-Zoster Vaccine (1 o f 2) 2023 COVID-19 Vaccine (4 - 2023-2 5 season) 2024 08/04/2021, 12/24/2020, 12/03/2020 Influenza Vaccine (#1) 2024 Pneumococcal Vaccine Aged Out No long er eligible based on patient's age to complete this topic RSV Ped < 20 months Aged Out No longe r eligible based on patient's age to complete this topic Care Teams Automotive Engineering Technician Relationship Specialty Start Date End Date Karma Mace [address] [id number] [facility] [place] [id number] PCP - General Family Medicine 01/02/18
--- OUTSIDE RECORDS SUMMARY | 2024-09-06 06:38 | XMS_ITS | Data Portability ---
Author Organization [facility] [place], [facility], [facility] Main Office Address [address] [place] [phone] Care Team Providers Care Scrap Collector Name Role Phone WILFREDO HAYNES Primary Care Provider DALLASWILFREDO AVLERO Referring Provider [phone] Assessment Encounter Date Assessment Date Assessment LastModified by Organization Details LastModified Time 10/22/2020 10/22/2020 This patient has dorsal left hand pain of several months duration. It is unclear on her physical examination what is causing the pain because she does not have any obvious pinpoint tenderness. We had a lengthy question and answer session lasting over 30 minutes today going over her medical findings. I have recommended we get baseline x-rays to determine if there is any structural issues that could be a cause of her symptoms. I do have some concern that she could be having some manifestations of nerve issues related to the cervical spine and it might be necessary to consider repeat neurodiagnostic studies. All questions were answered and I have recommended x-rays. I will give the patient a call to go over her x-rays and develop a further treatment plan going forward. [email or web address] Not available 10/22/2020 15:33:58 Plan of Treatment Reminders Order Date Submit Date Provider Last Modified By Organization Details Last Modified Time Details Appointments None record ed. Lab None record ed. Referral None record ed. Procedures None record ed. Surgeries None record ed. Imaging None record ed. Medication Orders None record ed. Patient TargetsNo targets recorded. Patient InstructionsNo instructions recorded. Reason for Referral None Reported. Results Created Date Observation Date Name Description Value Unit Range Abnormal Flag Note LastModifiedBy Organization Detail LastModifiedTime 10/23/19 21 10/22/2020 XR, wrist , 3 or more view [facility] [address] [place], [address] [phone] Name: Maggie JOHNSON : [id number] Date of Servic e: 1533 Acct Number : [id number] Order Number : [id number] Locati on: W[facility] Report Number : [id number] Servic e: REG REF/ Reques ting Physic yohannes: Elena matthews,Corky Villa MD Catego ry: ORTHOP EDIC RADIOL OGY SV Exam: WRIST 3 VIEW MINIMI M Left Access ion #: [id number] VH Signs/ Sympto ms: PAIN ASSESS FOR BONE OR JOINT PATHOL OGY Report Status : Sig gilbert Left wrist, 3 views Left hand, 3 views Histor y: PAIN ASSESS FOR BONE JOINT PATHOL OGY Compar galdino: None. Bony struct ures and alignm ent are intact . Joint spaces are intact . Articu lar margin s are well mainta ined. Carpus is intact . No fractu re is seen. Soft tissue s are mainta ined. Impres paty: No fractu re is seen. Date/T paula of Dictat ion: 1550 Radiol ogy Reside nt (if applic able): Approv ed By Attend ing Radiol ogist: Blaze Uriarte MD 1550 Orderi ng physic yohannes: Orlando matthews Other provid ers: Krystin Parker er, Krystin Parker er, , Non Physic yohannes, , , [facility] (Radiology) [address] [place] [address], [id number], 09/10/2021 10:57:15 10/23/19 21 10/22/2020 XR, hand, 3 or more view [facility] [address] [place] [address], [phone] Name: Maggie JOHNSON : [id number] Date of Servic e: 1533 Acct Number : [id number] Order Number : [id number] Locati on: W[facility] Report Number : [id number] Servic e: REG REF/ Reques ting Physic yohannes: Elena matthews,Corky Villa MD Catego ry: ORTHOP EDIC RADIOL OGY SV Exam: HAND 3 VIEW MINIMU M Left Access ion #: [id number] VH Signs/ Sympto ms: PAIN ASSESS FOR BONE JOINT PATHOL OGY Report Status : Sig gilbert Left wrist, 3 views Left hand, 3 views Histor y: PAIN ASSESS FOR BONE JOINT PATHOL OGY Compar galdino: None. Bony struct ures and alignm ent are intact . Joint spaces are intact . Articu lar margin s are well mainta ined. Carpus is intact . No fractu re is seen. Soft tissue s are mainta ined. Impres paty: No fractu re is seen. Date/T paula of Dictat ion: 1550 Radiol ogy Reside nt (if applic able): Approv ed By Attend ing Radiol ogist: Blaze Uriarte MD 1550 Orderi ng physic yohannes: Orlando matthews Other provid ers: Krystin Parker er, Krystin Parker er, , Non Physic yohannes, , , [facility] (Radiology) [address] [place] [address], [id number], 09/10/2021 10:57:15 Result Notes None recorded. Problems Name Problem SNOMED Code Status Onset Date Resolution Date Notes Provider Name and Address Organization Details Recorded Time Hypertensive disorder 05771550 Active 2020 Jessica henderson [place] - [facility], [facility] 14:50:19 Anxiety 40781326 Active 2020 Jessica henderson [place] - [facility], [facility] 14:50:27 Hyperlipidemia 97126916 Active 2020 Jessica henderson [place] - [facility], [facility] 14:50:37 Problem Notes None recorded. Procedures Surgical History None recorded. Imaging Results Imaging Date Name Status LastModified by Organiz ation Details LastModified Time 10/22/2020 XR, wrist, 3 or more view completed [facility] (Radiology) [address] [place] [address], [id number], 09/10/2021 10:57:15 10/22/2020 XR, hand, 3 or more view completed [facility] (Radiology) [address] [place], [address], 09/10/2021 10:57:15 Procedure Notes None recorded. Medical Equipment None Reported. Allergies Allergen ID Allergen Name Allergen Category Reaction Reaction Severity Criticality Documentation Date Start Date Code Code System Note Provider Name and Address Organization Details Recorded Time 64418 cortisone medicatio n Not available Not available Not available 10/22/2020 2878 RxNorm Jessica henderson, [place] - [facility], [facility] 14:46:46 12839 penicilli n V Not available Not available Not available Not available 10/22/2020 7984 RxNorm Jessica henderson, [place] - [facility] [place], [facility] 14:46:55 16310 Ultracet medicatio n Not available Not available Not available 10/22/2020 41321 2 RxNorm Jessica hend[place]on, [place] - [facility], [facility] 14:47:03 26130 Ultram medicatio n Not available Not available Not available 10/22/2020 59121 6 RxNorm Jessica henderson, [place] - [facility], [facility] 14:47:17 Medications Name Sig Start Date Stop Date Status Note LastModified by Organization Details LastModified Time cyclobenzap rine 10 mg tablet TAKE 1 TABLET BY MOUTH 3 TIMES A DAY NEEDED FOR SPASM active Not Available Not Available No t Available azithromyci n 250 mg tablet TAKE 2 TABLETS BY MOUTH TODAY, THEN TAKE 1 TABLET DAILY FOR 4 DAYS 10/22 completed Not Available Not Available Not Available sumatriptan 100 mg tablet TAKE 1 TABLET BY MOUTH EVERY DAY NEEDED FOR MIGRAINE HEADACHE active Not Available Not Available No t Available hydrocodone 5 mg-acetamin ophen 325 mg tablet TAKE 1 TO 2 TABLETS BY MOUTH EVERY 6 HOURS NEEDED FOR PAIN 10/22 completed Not Available Not Available Not Available ondansetron HCl 8 mg tablet TAKE 1 TABLET BY MOUTH EVERY 8 HOURS NEEDED FOR NAUSEA/VO MITING FOR 14 DAYS active Not Available Not Available No t Available ondansetron HCl 4 mg tablet 10/22 completed Not Available Not Available Not Available prednisone 20 mg tablet TAKE 2 TABLETS BY MOUTH EVERY DAY FOR 5 DAYS 10/22 completed Not Available Not Available Not Available triamcinolo ne acetonide 0.5 % topical ointment APPLY A THIN FILM TOPICALLY TWICE A DAY FOR 14 DAYS 10/22 completed Not Available Not Available Not Available levothyroxi ne 100 mcg tablet TAKE 1 TABLET BY MOUTH EVERY DAY active Not Available Not Available No t Available levothyroxi ne 88 mcg tablet TAKE 1 TABLET BY MOUTH EVERY DAY 10/22 completed Not Available Not Available Not Available nortriptyli ne 10 mg capsule TAKE 1 CAPSULE BY MOUTH AT BEDTIME active Not Available Not Available No t Available omeprazole 20 mg capsule,del ayed release TAKE 1 CAPSULE BY MOUTH TWICE A DAY TO TREAT H PYLORI active Not Available Not Available No t Available hydroxyzine HCl 25 mg tablet active Not Available Not Available Not Available fluocinonid e 0.05 % topical solution APPLY TO THE SCALP 2 TIMES DAILY FOR 3 WEEKS. active Not Available Not Available No t Available ketoconazol e 2 % topical cream APPLY TO FEET TWICE A DAY FOR 4 WEEKS 10/22 completed Not Available Not Available Not Available clotrimazol e 1 % topical cream APPLY TO AFFECTED AREA TWICE A DAY FOR 14 DAYS 10/22 completed Not Available Not Available Not Available escitalopra m 10 mg tablet 10/22 completed Not Available Not Available Not Available cyclobenzap rine 5 mg tablet TAKE 1 TABLET BY MOUTH 3 TIMES A DAY NEEDED FOR MUSCLE SPASM 10/22 completed Not Available Not Available Not Available Garlique active Not Available Not Avai lable Not Available Vitals Date Recorded Body height Body mass index (BMI) Body weight Provider Name and Address Organization Details Last Updated DateTime 10/22/2020 149.86 cm 28.9 kg/m2 36767.71 g Jessica Cavanaugh [facility], [facility] 10/22/2020 14:46:27 Social History None recorded. Functional Status None recorded. Mental Status None recorded. Family History Nothing Reported. Medical History No medical history recorded. Gynecological HistoryNo gynecological history recorded. Obstetrics History GPAL:G 0 P 0 0 0 0 Past Encounters Encounter ID Performer Location Encounter Start Date Encounter Closed Date Diagnosis/Indication Diagnosis SNOMED-CT Code Diagnosis ICD10 Code Diagnosis Note [id number] Ananth Arana MD S Main Office [address] [place] [address],[address] [place] [address] 10/22/2020 14:38:17 10/23/2020 10:42:43 Pain of left hand 8961889638 99374 M79.642 Health Concerns Section Related Observation LastModified by Organization Detai ls LastModified Time None Recorded Concern Status LastModified by Organization Details LastModified Time None Recorded Advance Directives Directive None Recorded Payers Encounter Date Sequence Insurance Name Policy Number Policy Estes Covered Member ID Estes Member ID Guarantor Name 10/22/2020 1 [place] [employer] Rebecca Rossy Dony [id number] Rebecca Johnson 10/22/2020 2 [place] [facility] Rebecca Rossy Dony [id number] Rebecca Johnson Notes Date Note Type Note Provider Name and Address Organization Details Recorded Time 10/22/2020 text/html This patient presents with a several month history of left dorsal hand and wrist pain. She has a history of previous carpal tunnel releases bilaterally. She also states that she has a history of cervical disc disease but apparently it is nonoperative at this point she does suggest that she gets some nocturnal awakenings and some shooting pains down her hands. She has not had any treatment for these new symptoms of dorsal hand and wrist pain she describes weakness as well as discomfort. Ananth Arana MD [address] [place] [address],[address], [place], [phone], [facility] - [facility] [place], [facility] 10/22/2020 15:35:04 OBGyn Episode No OBEpisode recorded.
--- NOTE | 2024-09-06 07:04 | MHC.SHP ---
Pre-Procedural Eval Section A - 24 Hr Update-Section A only Date of Service: 09/06/24 The patient is an INPATIENT: No Changes since office visit: No Cold of Flu in the past 2 weeks, No New Medical Problems, No Changes in Medication and No Patient answered all questions The patient has been examined within 24 hours of the surgical procedure. The History & Physical has been completed within 30 days and I have reviewed it.: No Section B - Complete if H&P > 30 days Chief Complaint: Other intervertebral disc displacement, lumbar reg Allergies: Allergies Allergy/AdvReac Type Severity Reaction Status Date / Time Penicillins Allergy Severe Hives Verified 08/27/24 12:12 tramadol [From Ultracet] Allergy Severe hives Verified 08/27/24 12:12 cortisone Allergy Severe hives Uncoded 08/27/24 12:12 Review of Systems Sugical H&P ROS: Negative: Constitution, Cardiovascular, Respiratory, Neurological, Psychiatric, Hem-Onc, Allergic/Immunologic, Gastrointestinal, Genitourinary, Musculoskeletal, Integumentary, Endocrine and Eyes/Ears/Nose/Throat Exam Surgical H&P Exam: Normal: HEENT, Normal: Heart, Normal: Lungs, Normal: Extremities, Normal: Abdomen, Normal: Skin and Normal: Neurological (awake, alert,oriented x 3 ) Plan Diagnosis/Plan: Unchanged right L4-5 microdiskectomy Time Spent With Patient Time: Total time managing care of this patient today _5___ minutes.
--- NOTE | 2024-09-06 07:05 | P.DS_ITS ---
DS: Providers Provider Date of Service: 09/06/24 Date of discharge: 09/06/24 Primary care physician: Unknown Physician Admitting clinician: Kory Munoz DS: Diagnosis Discharge Diagnosis (1) Lumbar disc herniation: Status: Acute DS: Summary Time Attestation Discharge Coordination Time (in mins): 6 Quality: Safe Use of Opioids Does Pt have an Active Cancer Diagnosis on the Problem List?: No Quality: Stroke Does the patient have a stroke diagnosis?: No Physical Exam Vital Signs: Vital Signs: Last Vital Signs Pulse 81 08/27/24 12:01 Resp 16 08/27/24 12:01 BP 120/69 08/27/24 12:01 BMI result Body Mass Index 29.7 Discharge Plan Discharge Patient Disposition: Home, Self-Care Referrals: Physician,Unknown J [Primary Care Provider] - 1 Week Discharge Medications: New docusate sodium [Colace] 100 mg capsule 100 mg PO BID Qty: 20 0RF oxycodone 5 mg tablet 5 mg PO Q4H PRN (Reason: pain) Qty: 30 0RF Rx Instructions: Partial Fill upon patient request. Continued atorvastatin 20 mg tablet 20 mg PO DAILY cyanocobalamin (vitamin B-12) [Vitamin B-12] 1,000 mcg tablet 1,000 mcg PO DAILY levothyroxine 100 mcg tablet 100 mcg PO DAILY pantoprazole 40 mg tablet,delayed release (DR/EC) 40 mg PO DAILY Aimovig Autoinjector 70 mg/mL auto-injector 70 mg SUBCUT Q28D acetaminophen 650 mg tablet extended release 650 mg PO Q8H PRN (Reason: pain) ondansetron HCl 8 mg tablet 8 mg PO Q8H PRN (Reason: nausea/vomiting) rizatriptan 10 mg tablet 10 mg PO DAILY PRN (Reason: Heartburn) diclofenac sodium 1 % gel 1 g topical BID albuterol sulfate [Ventolin HFA] 90 mcg/actuation HFA aerosol inhaler 2 puff inhalation QID PRN (Reason: wheezing) Held aspirin 81 mg tablet,delayed release (DR/EC) 81 mg PO DAILY Hold Instructions: Resume on 09/13/24. You can resume asprin 7 days after surgery Discharge Orders: Discharge Order (Routine); Ordered 09/06/24 Ordered By: Jono Burrell Diet: Advance to usual diet Activity on Discharge: As tolerated Activity Restrictions/Additional Instructions: After your spinal surgery we ask you to observe the following restrictions/guidelines: Activity: It is normal to feel some discomfort as you increase your activity, but that will improve with time. We ask you avoid heavy lifting or acitivities that cause pain. As a general rule, 8lbs is a safe limit for lifting right after surgery. Walk as much as you feel comfortable but not to exhaustion. You will feel extra tired the first few days after surgery. Stay well hydrated. It is OK to walk up and down stairs You may return to driving when you are off narcotics (such as vicodin, oxycodone, dilaudid, etc), and you are back to normal functional capacity. If you have any concerns please check with office before driving. Return to work is specific to each patient and each surgery, so please speak with your doctor/PA at first follow up. Please bring paperwork such as FMLA at that time if you need it filled out. Medications: For optimum pain control, it is best to start with a combination of 500 mg of Tylenol every 4 hours with 600 mg of Motrin every 8 hours, and use narcotics as needed in between for breakthrough pain. We will give you a short supply of narcotics after surgery (usually one weeks worth). If you need more please call the office but do not use more than prescribed. You will need to give our office 48 hours notice if you need narcotics refilled and we do not fill narcotics on weekends or evenings. If you are on a narcotic, it is a good idea to take a stool softener such as colace or senna to avoid constipation If you take blood thinner such as aspirin, Plavix, Coumadin, Effient, Eliquis etc for conditions such as Afib, DVT, Pulmonary embolus, coronary disease, sten ts etc please speak with your surgeon about specific details as to when you can resume these medications. You can resume NSAIDs on post op day 1 (eg: Motrin, Naproxen, etc). Follow up: Please call the office, , after surgery to arrange a 3 week follow up for wound check. Wound Care: You may remove your dressing on the first day after surgery. ?You may ?leave open to air. Please do not remove the steri strips underneath. they will fall off on their own in one week. IT IS NORMAL FOR THE WOUND TO OOZE OR BE BLOODY FOR A FEW DAYS AFTER SURGERY. ?IF THIS HAPPENS JUST PLACE NEW DRESSING OVER IT TO AVOID STAINING CLOTHES. You may shower on post op day # 1 We ask that you do not let the water soak the wound. If it does get wet, just towel dry lightly. Please do not scrub your incision or place any type of chemical/ointment on the wound. No tub baths, pools or jacuzzis for one month. If you have any leaking or redness from your wound, or fevers, please call office Print Language: [place] Verde[place]
[2024-09-06] MEDS: methocarbamoL 750 MG TABLET PO (07:47)
[2024-09-06] MEDS: Gabapentin 300 MG CAPSULE PO (07:47)
[2024-09-06] MEDS: Lactated Ringers 1,000 ML 100 ML IVCONT (07:47)
[2024-09-06] MEDS: vancomycin HCL 1,000 MG in 0.9 % Sodium Chloride 250 ML 270 MG IV (07:53)
--- NOTE | 2024-09-06 08:10 | P.CONAN_ITS ---
Documented by User: Neli Potts NP 08/28/24 12:00 HPI - Anesthesia Eval Consult details Narrative: 49yo F for Right L4 - 5 Microdiscectomy, 09/06/24 No recent illness No CP. Some MAYNARD with anxiety Asthma: Controlled. Albuterol ~ 2 x weekly PONV: Takes preop zofran 8mg prior to arrival GERD: ppi controls PMFSH Active Problems Active Problems: All Active Problems Neck pain (Acute) Lumbar disc herniation (Acute) Right shoulder pain (Acute) Tear of medial meniscus of right knee (Acute) Right knee pain (Acute) Past Medical History Medical History (Updated 08/27/24 @ 12:31 by Shanna Crawford RN) No natural teeth Degenerative arthritis Arthritis Back pain Right ovarian cyst Renal calculi Weakness of right leg Hx of thyroid irradiation (~1994) PONV (postoperative nausea and vomiting) Cervical disc disease Anxiety Depression Hypothyroidism Migraines GERD (gastroesophageal reflux disease) Elevated cholesterol Asthma Hyperthyroidism Family History Family history of problems with anesthesia: No Surgical History Surgical History (Updated 08/24/24 @ 12:19 by Taylor Cummins RN) Hx of tonsillectomy History of carpal tunnel release Hx of tubal ligation History of esophagogastroduodenoscopy (EGD) H/O colonoscopy Hx of arthroscopy of right knee History of partial hysterectomy History of toe surgery History of 3 sections History of arthroscopy of left knee History of shoulder surgery History of Problems with Anesthesia: Yes (PONV) Social History Social History (Updated 04/21/23 @ 09:20 by Delores Sullivan CMA) Household Members: Significant Other Housing: House Are you a primary early breastfeeding care specialist to a significant other at home: Yes (son) Do you presently have visiting nurse or other home services: No Alcohol intake: never Patient Tobacco Use Status: Current everyday Tobacco user Tobacco use type: Cigarette Cigarette Packs Per Day: 0.5 Cigarettes Per Day: 10 Smoked in Last 30 Days: Yes Patient Interested in Nicotine Replacement: No Second Hand Smoke Exposure: No Use of substances other than those prescribed or required for medical reasons: No Have you been hit, kicked, punched, or otherwise hurt by someone within the past year? 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 Meds Allergies Allergy/AdvReac Type Severity Reaction Status Date / Time Penicillins Allergy Severe Hives Verified 08/27/24 12:12 tramadol [From Ultracet] Allergy Severe hives Verified 08/27/24 12:12 cortisone Allergy Severe hives Uncoded 08/27/24 12:12 Home Medications ?Medication ?Instructions ?Recorded ?Confirmed ?Last Taken ?Type albuterol sulfate 90 mcg/actuation 2 puff inhalation QID PRN wheezing 03/17/23 08/24/24 09/06/24 History aerosol inhaler (Ventolin HFA) diclofenac sodium 1 % topical gel 1 g topical BID 03/17/23 08/24/24 08/30/24 History rizatriptan 10 mg tablet 10 mg PO DAILY PRN Heartburn 03/17/23 08/24/24 09/02/24 History aspirin 81 mg tablet,delayed 81 mg PO DAILY 04/08/23 08/24/24 08/30/24 History release atorvastatin 20 mg tablet 20 mg PO DAILY 04/08/23 08/24/24 09/05/24 History cyanocobalamin (vitamin B-12) 1,000 mcg PO DAILY 04/08/23 08/24/24 09/05/24 History 1,000 mcg tablet (Vitamin B-12) levothyroxine 100 mcg tablet 100 mcg PO DAILY 04/08/23 08/24/24 09/05/24 History pantoprazole 40 mg tablet,delayed 40 mg PO DAILY 04/08/23 08/24/24 09/02/24 History release acetaminophen 650 mg 650 mg PO Q8H PRN pain 08/27/24 08/27/24 08/23/24 History tablet,extended release erenumab-aooe 70 mg/mL 70 mg subcut Q28D 08/27/24 08/27/24 09/02/24 History subcutaneous auto-injector (Aimovig Autoinjector) ondansetron HCl 8 mg tablet 8 mg PO Q8H PRN nausea/vomiting 08/27/24 08/27/24 09/05/24 History Exam Height,Weight and Vital Signs: Height 4 ft 11 in Weight 66.678 kg Last Vital Signs Pulse 81 08/27/24 12:01 Resp 16 08/27/24 12:01 BP 120/69 08/27/24 12:01 Pertinent Lab Results Pertinent Lab Results: Lab Results 08/27/24 Range/Units 13:00 WBC 10.8 (4.8-10.8) X10*3/uL RBC 4.88 (4.20-5.50) X10*6/uL Hgb 14.5 (12.0-16.0) g/dl Hct 45.0 (37.0-47.0) % MCV 92.2 (80.0-98.0) fL MCH 29.7 (27.0-33.0) pg MCHC 32.2 (31.0-35.0) g/dl RDW 12.3 (11.0-16.0) % Plt Count 330 (160-400) X10*3/uL MPV 9.6 (9.4-12.3) fL Absolute Nucleated RBC 0.000 (0.0-0.012) X10*3/uL Nucleated RBC % (auto) 0.0 (0.0-0.2) /100WBC Sodium 142 (135-145) mmol/L Potassium 3.9 (3.3-5.1) mmol/L Chloride 108 (96-108) mmol/L Carbon Dioxide 25 (22-29) mmol/L Anion Gap 13 (12-20) BUN 11 (9-16) mg/dL Creatinine 0.77 (0.5-1.4) mg/dL Estim Creat Clear Calc 71.7 Estimated GFR > 60 Random Glucose 99 (60-115) mg/dL Calcium 9.5 (8.4-10.2) mg/dL Narrative Narrative: EKG 08/2024 Vent. Rate : 60 BPM Atrial Rate : 60 BPM P-R Int : 134 ms QRS Dur : 74 ms QT Int : 456 ms P-R-T Axes : 48 20 -2 degrees QTcB Int : 456 ms Normal sinus rhythm Nonspecific ST and T wave abnormality Abnormal ECG No previous ECGs available - *No changes from previous at [facility] 2022* Airway Mallampati Class: II TM Dist: >3cm Neck ROM: Full Loose/Missing/Broken Teeth: Yes (edentulous) Heart: RRR Lungs: CTAB Assessment and Plan Assessment Anesthesia Assessment: Anesthesia Plan Discussed, Smoking Cess. Discussed and PAT Visit Final Anesthetic Review Family History of Problems with Anesthesia: No History of Problems with Anesthesia: Yes (PONV) Documented by User: Elisabeth Amos DO 09/06/24 08:14 [facility] Past Medical History Medical History (Updated 08/27/24 @ 12:31 by Shanna Crawford, KAREN) No natural teeth Degenerative arthritis Arthritis Back pain Right ovarian cyst Renal calculi Weakness of right leg Hx of thyroid irradiation (~1994) PONV (postoperative nausea and vomiting) Cervical disc disease Anxiety Depression Hypothyroidism Migraines GERD (gastroesophageal reflux disease) Elevated cholesterol Asthma Hyperthyroidism Family History Family history of problems with anesthesia: No Surgical History Surgical History (Updated 08/24/24 @ 12:19 by Taylor Cummins RN) Hx of tonsillectomy History of carpal tunnel release Hx of tubal ligation History of esophagogastroduodenoscopy (EGD) H/O colonoscopy Hx of arthroscopy of right knee History of partial hysterectomy History of toe surgery History of 3 sections History of arthroscopy of left knee History of shoulder surgery History of Problems with Anesthesia: Yes (PONV) Social History Social History (Updated 04/21/23 @ 09:20 by Delores Sullivan CMA) Household Members: Significant Other Housing: House Are you a primary early breastfeeding care specialist to a significant other at home: Yes (son) Do you presently have visiting nurse or other home services: No Alcohol intake: never Patient Tobacco Use Status: Current everyday Tobacco user Tobacco use type: Cigarette Cigarette Packs Per Day: 0.5 Cigarettes Per Day: 10 Smoked in Last 30 Days: Yes Patient Interested in Nicotine Replacement: No Second Hand Smoke Exposure: No Use of substances other than those prescribed or required for medical reasons: No Have you been hit, kicked, punched, or otherwise hurt by someone within the past year? 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 Meds Allergies Allergy/AdvReac Type Severity Reaction Status Date / Time Penicillins Allergy Severe Hives Verified 08/27/24 12:12 tramadol [From Ultracet] Allergy Severe hives Verified 08/27/24 12:12 cortisone Allergy Severe hives Uncoded 08/27/24 12:12 Home Medications ?Medication ?Instructions ?Recorded ?Confirmed ?Last Taken ?Type albuterol sulfate 90 mcg/actuation 2 puff inhalation QID PRN wheezing 03/17/23 08/24/24 09/06/24 History aerosol inhaler (Ventolin HFA) diclofenac sodium 1 % topical gel 1 g topical BID 03/17/23 08/24/24 08/30/24 History rizatriptan 10 mg tablet 10 mg PO DAILY PRN Heartburn 03/17/23 08/24/24 09/02/24 History aspirin 81 mg tablet,delayed 81 mg PO DAILY 04/08/23 08/24/24 08/30/24 History release atorvastatin 20 mg tablet 20 mg PO DAILY 04/08/23 08/24/24 09/05/24 History cyanocobalamin (vitamin B-12) 1,000 mcg PO DAILY 04/08/23 08/24/24 09/05/24 History 1,000 mcg tablet (Vitamin B-12) levothyroxine 100 mcg tablet 100 mcg PO DAILY 04/08/23 08/24/24 09/05/24 History pantoprazole 40 mg tablet,delayed 40 mg PO DAILY 04/08/23 08/24/24 09/02/24 History release acetaminophen 650 mg 650 mg PO Q8H PRN pain 08/27/24 08/27/24 08/23/24 History tablet,extended release erenumab-aooe 70 mg/mL 70 mg subcut Q28D 08/27/24 08/27/24 09/02/24 History subcutaneous auto-injector (Aimovig Autoinjector) ondansetron HCl 8 mg tablet 8 mg PO Q8H PRN nausea/vomiting 08/27/24 08/27/24 09/05/24 History Exam Exam Date and Time: 09/06/24 0810 Height,Weight and Vital Signs: Height 4 ft 11 in Weight 66.678 kg Last Vital Signs Pulse 81 08/27/24 12:01 Resp 16 08/27/24 12:01 BP 120/69 08/27/24 12:01 Vital Signs Pulse Rate 81 08/27/24 12:01 Respiratory Rate 16 08/27/24 12:01 Blood Pressure 120/69 08/27/24 12:01 Pulse Rate 81 08/27/24 12:01 Respiratory Rate 16 08/27/24 12:01 Blood Pressure 120/69 08/27/24 12:01 Airway Mallampati Class: II TM Dist: >3cm Neck ROM: Full Loose/Missing/Broken Teeth: Yes (edentulous) Heart: S1S2 Assessment and Plan Assessment Anesthesia Assessment: Anesthesia Plan Discussed and Chart Reviewed Final Anesthetic Review Family History of Problems with Anesthesia: No History of Problems with Anesthesia: Yes (PONV) NPO: Yes ASA Class: II Final Preanesthetic Review: No Changes in Pt Med Stat, Meds/Allgs Chart Reviewed, Consent Obtained/Reviewed and Anes Risks/Benef Reviewed Patient Risk: Low Procedure Risk: Intermediate Anesthetic Plan Anesthetic Plan: GA and Agree w/ Assess. and Plan Disposition: Standard PACU
--- NOTE | 2024-09-06 10:15 | P.OP_ITS ---
Operative Note Operative Note Date of Service: 09/06/24 Narrative: Preoperative diagnosis: Right lumbar radiculopathy due to disc herniation Postoperative diagnosis: Same Procedure: Right L4-5 lumbar microdiskectomy with microscope Surgeon: Kory Munoz MD, PhD [employer]: [employer] [place] This patient is suffering from intractable right lumbar radiculopathy due to a small disc herniation compressing the right L5 nerve root.. The patient was offered a lumbar microdiskectomy to decompress the nerve root. The procedure complications were explained. The patient was consented. The patient was brought to the operating room and endotracheally intubated. The patient was turned in a prone position on the Manuel frame. Prepping and draping was done followed by time-out. A mid lumbar incision was made followed by release of the paravertebral muscles on the right side to expose the L4-5 interspace. An intraoperative x-rays obtained to confirm the correct level. The microscope was brought in. A L4 laminotomy was done followed by opening of the flavum ligament. The L5 nerve root was identified and retracted medially to expose the L4-5 disc space. I could palpate a disc herniation medial from the L5 nerve root, which I carefully removed with a pituitary. The disc space was inspected and any residual disc fragments were removed. This resulted in an excellent decompression of the L5 nerve root. Hemostasis was done. The microscope was removed. Marcaine was injected intramuscularly.The incision was closed in two layers. Steri-Strips used to approximate the incision. An op-site were taken there was used to cover the incision. All sponge and needle counts were correct. Patient was extubated and transported in stable condition to recovery room. this procedure was done with the aid of a physician assistant professor of music who performed the initial exposure until the microscope was brought in and performed the closure of the incision. Anesthesia: General Blood loss: 10 mL Complications: None Specimen: None Surgical time: 40 minutes Disposition: Discharge home
[2024-09-06 10:32] VITALS: BP 105/50; PULSE 70; RESP 16; TEMP 36.9; O2SAT 100
[2024-09-06 10:37] VITALS: BP 129/65; PULSE 56; RESP 16; O2SAT 100
[2024-09-06 10:42] VITALS: BP 108/60; PULSE 56; RESP 15; O2SAT 99
[2024-09-06 10:47] VITALS: BP 121/69; PULSE 61; RESP 16; O2SAT 99
[2024-09-06 11:02] VITALS: BP 131/67; PULSE 62; RESP 16; O2SAT 100
[2024-09-06 11:14] VITALS: BP 103/82; PULSE 103; RESP 18; TEMP 36.4; O2SAT 98
== END 2024-09-06 12:03 | disposition home or self-care (01) ==
PROVIDERS: Nurse Practitioner; Visit Provider Neurological Surgery
PROC: (CPT 63030; principal; 2024-09-06 09:30)
DX: M51.26 Other intervertebral disc displacement, lumbar region (principal); M51.16 Intervertebral disc disorders with radiculopathy, lumbar region; Z88.0 Allergy status to penicillin; Z88.5 Allergy status to narcotic agent; Z88.8 Allergy status to other drugs, medicaments and biological substances
CPT/HCPCS: 63030; 36415; 80048; 85027; 93005; J0131; J1100; J1885; J2003; J2405; J2704; J3010; J3370

== ENCOUNTER → 2024-09-06 06:36 | Outpatient (BNV) | payer MEDICARE, MEDICAID, SELFPAY | PROVIDERS: Visit Provider Neurological Surgery | DX: M51.26 Other intervertebral disc displacement, lumbar region (principal) | CPT/HCPCS: 63030; 99499 ==

== ENCOUNTER 2024-09-09 13:18 | Emergency (ER) | payer MEDICARE, MEDICAID, SELFPAY ==
[2024-09-09 13:57] VITALS: BP 128/74; PULSE 73; RESP 18; TEMP 36.6; O2SAT 99; BMI 28.5
--- NOTE | 2024-09-09 13:58 | ED_ITS ---
HPI - Extremity Problem General Chief complaint: General Medical Stated complaint: post surgery leg pain Time Seen by Provider: 09/09/24 19:41 Source: patient Limitations: no limitations History of Present Illness ED Provider: Taylor Sanchez PA-C HPI Narrative: 49-year-old female with a history of lumbar disc herniation now status post L4- L5 lumbar microdiskectomy on September [address] Munoz, presents with extreme right lower extremity pain. Patient states that prior to her surgery, she was having burning pain radiating down the right lower extremity. Since her surgery, she feels as if her symptoms have progressed. Patient states the right lower extremity is cooler to touch versus the left side. Patient did call her surgeon, she has follow up with a him tomorrow in the office. Denies weakness of lower extremity, paresthesia, urinary retention or bowel incontinence. No fever. Related Data Home Medications ?Medication ?Instructions ?Recorded ?Confirmed albuterol sulfate 90 mcg/actuation 2 puff inhalation QID PRN wheezing 03/17/23 08/24/24 aerosol inhaler (Ventolin HFA) diclofenac sodium 1 % topical gel 1 g topical BID 03/17/23 08/24/24 rizatriptan 10 mg tablet 10 mg PO DAILY PRN Heartburn 03/17/23 08/24/24 aspirin 81 mg tablet,delayed 81 mg PO DAILY 04/08/23 08/24/24 release atorvastatin 20 mg tablet 20 mg PO DAILY 04/08/23 08/24/24 cyanocobalamin (vitamin B-12) 1,000 mcg PO DAILY 04/08/23 08/24/24 1,000 mcg tablet (Vitamin B-12) levothyroxine 100 mcg tablet 100 mcg PO DAILY 04/08/23 08/24/24 pantoprazole 40 mg tablet,delayed 40 mg PO DAILY 04/08/23 08/24/24 release acetaminophen 650 mg 650 mg PO Q8H PRN pain 08/27/24 08/27/24 tablet,extended release erenumab-aooe 70 mg/mL 70 mg subcut Q28D 08/27/24 08/27/24 subcutaneous auto-injector (Aimovig Autoinjector) ondansetron HCl 8 mg tablet 8 mg PO Q8H PRN nausea/vomiting 08/27/24 08/27/24 Previous Rx's ?Medication ?Instructions ?Recorded docusate sodium 100 mg capsule 100 mg PO BID #20 caps 09/06/24 (Colace) oxycodone 5 mg tablet 5 mg PO Q4H PRN pain #30 tabs 09/06/24 Allergies Allergy/AdvReac Type Severity Reaction Status Date / Time Penicillins Allergy Severe Hives Verified 09/09/24 14:02 tramadol [From Ultracet] Allergy Severe hives Verified 09/09/24 14:02 cortisone Allergy Severe hives Uncoded 09/09/24 14:02 Review of Systems Review of Systems: Yes all other systems are reviewed and are negative Constitutional: Constitutional: Denies fatigue and Denies fever(s) Cardiovascular: Cardiovascular: Denies chest pain and Denies dyspnea Respiratory: Respiratory: Denies dyspnea Gastrointestinal: Gastrointestinal: Denies abdominal pain Musculoskeletal: Musculoskeletal: Denies back pain, Denies muscle weakness, Denies numbness, Reports radiating pain into limb and Denies tingling Neurologic: Denies numbness and Denies tingling Endocrine: Endocrine: Denies fatigue PMFSH Past Medical History Attestation statement: The following information was validated with the patient. Medical History (Updated 09/09/24 @ 20:29 by NICOLASA Taylor) No natural teeth Degenerative arthritis Arthritis Back pain Right ovarian cyst Renal calculi Weakness of right leg Hx of thyroid irradiation (~1994) PONV (postoperative nausea and vomiting) Cervical disc disease Anxiety Depression Hypothyroidism Migraines GERD (gastroesophageal reflux disease) Elevated cholesterol Asthma Hyperthyroidism Surgical History (Updated 08/24/24 @ 12:19 by Taylor Cummins RN) Hx of tonsillectomy History of carpal tunnel release Hx of tubal ligation History of esophagogastroduodenoscopy (EGD) H/O colonoscopy Hx of arthroscopy of right knee History of partial hysterectomy History of toe surgery History of 3 sections History of arthroscopy of left knee History of shoulder surgery Social History Social History (Updated 04/21/23 @ 09:20 by Delores Sullivan CMA) Household Members: Significant Other Housing: House Are you a primary rn transitional care to a significant other at home: Yes (son) Do you presently have visiting nurse or other home services: No Alcohol intake: never Patient Tobacco Use Status: Current everyday Tobacco user Tobacco use type: Cigarette Cigarette Packs Per Day: 0.5 Cigarettes Per Day: 10 Second Hand Smoke Exposure: No Advance Directives: No Advance Directives Information Provided: No Current occupational status: disabled 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 Skin: Other: Warm dry no rash Neuro: Other: Have not assess gait yet General: patient oriented x3, no focal motor deficits and CN's II-XI intact bilaterally Extrem: Other: Strength 5/5 bilateral lower extremities, patient moving both legs readily and easily in her bed Psych: Other: Cooperative Course Course Course Narrative: This is an RME performed by Simi Sanders, HOP STRAINER: Additional HPI, ROS, PE not included below will be deferred to primary provider. Patient is a 49-year-old female who presents emergency department for evaluation, on 09/06/2024 she underwent right L4-L5 lumbar microdiskectomy here at [facility] with Dr. Munoz. She admits that prior to the surgery she was having burning pain to the right lower extremity but it feel significantly worse since surgery. She was discharged with oxycodone 5 mg which she has been taking every 4-5 hours she admits that this does help with the pain in her back but does not alleviate the pain that he is experiencing in her leg. Reports that in the past even prior to surgery she had taking gabapentin without any relief. Advised that she contacted the surgeon's office, was advised that this could be expected/normal, but states her pain is too severe to tolerate Plan: Placed back in wheelchair, sent to waiting room pending bed availability for analgesia Reevaluation(s) Reevaluation #1: Patient was extremely anxious, she does not want IV medications she will prefer oral, she just wants to go home and follow up with her surgeon tomorrow. I will modify the medications. Time: 20:25 Medical Decision Making Medical Decision Making MDM Narrative: 49-year-old female with a history of lumbar disc herniation now status post L4- L5 lumbar microdiskectomy on September [address] Munoz, presents with extreme right lower extremity pain. Patient states that prior to her surgery, she was having burning pain radiating down the right lower extremity. Since her surgery, she feels as if her symptoms have progressed. Patient states the right lower extremity is cooler to touch versus the left side. Patient did call her surgeon, she has follow up with a him tomorrow in the office. Denies weakness of lower extremity, paresthesia, urinary retention or bowel incontinence. No fever. Problem: Recent surgery History: Per patient I have considered the following differential diagnoses: Radiculopathy, cauda equina, epidural abscess, failed back syndrome , vascular compromise Plan: It is ideal that the patient has follow up with her surgeon tomorrow. Our goal is to get her comfortable. We will treat with Toradol , Decadron and Valium. She has no red flag signs symptoms concerning for cord compression. She is afebrile, again she is neurologically intact, this is not epidural abscess. There is no arterial compromise. No indication for imaging at this time. Discharge Plan Discharge Clinical Impression: Subacute right lumbar radiculopathy Patient Disposition: Home, Self-Care Instructions: Lumbar Radiculopathy (ED) Additional Instructions: You are being treated for radicular symptoms. You were given a one time dose of steroid, an anti-inflammatory and a dose of a muscle relaxant. Keep your appointment with your surgeon scheduled for tomorrow. Prescriptions: No Action atorvastatin 20 mg tablet 20 mg PO DAILY cyanocobalamin (vitamin B-12) [Vitamin B-12] 1,000 mcg tablet 1,000 mcg PO DAILY aspirin 81 mg tablet,delayed release (DR/EC) 81 mg PO DAILY levothyroxine 100 mcg tablet 100 mcg PO DAILY pantoprazole 40 mg tablet,delayed release (DR/EC) 40 mg PO DAILY Aimovig Autoinjector 70 mg/mL auto-injector 70 mg SUBCUT Q28D acetaminophen 650 mg tablet extended release 650 mg PO Q8H PRN (Reason: pain) ondansetron HCl 8 mg tablet 8 mg PO Q8H PRN (Reason: nausea/vomiting) docusate sodium [Colace] 100 mg capsule 100 mg PO BID Qty: 20 0RF oxycodone 5 mg tablet 5 mg PO Q4H PRN (Reason: pain) Qty: 30 0RF Rx Instructions: Partial Fill upon patient request. rizatriptan 10 mg tablet 10 mg PO DAILY PRN (Reason: Heartburn) diclofenac sodium 1 % gel 1 g topical BID albuterol sulfate [Ventolin HFA] 90 mcg/actuation HFA aerosol inhaler 2 puff inhalation QID PRN (Reason: wheezing) Print Language: Lithuanian
--- OUTSIDE RECORDS SUMMARY | 2024-09-09 19:35 | XMS_ITS | Data Portability ---
Author Organization [facility] [place], [facility], [facility] Main Office Address [address] [place] [address] Care Team Providers Care Comic Book Artist Name Role Phone WILFREDO HAYNES Primary Care Provider DALLASWILFREDO VALERO Referring Provider [phone] Assessment Encounter Date Assessment Date Assessment LastModified [...] al Depart ment of Radiol ogy [address] [place], [address] Name: Maggie JOHNSON : [id number] Date of Servic e: [birth year]33 Acct Number : [id number] Order Number : [id number] Locati on: WORD Report Number : [id number] Servic e: REG REF/ Reques ting Physic yohannes: Elena matthews,Corky Villa MD Catego ry: ORTHOP EDIC RADIOL OGY SV Exam: WRIST 3 VIEW MINIMI M Left Access ion #: [id number] VH Signs/ Sympto ms: PAIN ASSESS [...] er, , Non Physic yohannes, , , [facility] [address] [place] [address], [address], 09/10/2021 10:57:15 10/23/19 21 10/22/2020 XR, hand, 3 or more view [facility] Hospit al Depart ment of Radiol ogy [address] [place] [address], [phone] Name: Maggie JOHNSON : [id number] Date of Servic e: 1533 Acct Number : [id number] Order Number : [id number] Locati on: WORD Report Number : [id number] Servic e: REG REF/ Reques ting Physic yohannes: Elena matthews,Corky Villa MD Catego ry: ORTHOP EDIC RADIOL OGY SV Exam: HAND 3 VIEW MINIMU M Left Access ion #: [id number] VH Signs/ Sympto ms: PAIN ASSESS [...] er, , Non Physic yohannes, , , [facility] (Radiology) [address] [place] [address], [address], 09/10/2021 10:57:15 Result Notes None recorded. Problems Name Problem SNOMED Code Status Onset Date Resolution Date Notes Provider Name and Address Organization Details Recorded Time Hypertensive disorder 74562834 Active 2020 Jessica henderson [place] - [facility], [facility] 14:50:19 Anxiety 27974806 Active 2020 Jessica henderson [place] - [facility], [facility] 14:50:27 Hyperlipidemia 90061970 Active 2020 Jessica henderson MA - [facility], [facility] 14:50:37 Problem Notes None recorded. Procedures Surgical History None recorded. Imaging Results Imaging Date Name Status LastModified by Organiz ation Details LastModified Time 10/22/2020 XR, wrist, 3 or more view completed [facility] (Radiology) [address] [place] [address], [address], 09/10/2021 10:57:15 10/22/2020 XR, hand, 3 or more view completed [facility] (Radiology) [address] [place], [address], 09/10/2021 10:57:15 Procedure Notes None recorded. Medical Equipment None Reported. Allergies Allergen ID Allergen Name Allergen Category Reaction Reaction Severity Criticality Documentation Date Start Date Code Code System Note Provider Name and Address Organization Details Recorded Time 87005 cortisone medicatio n Not available Not available Not available 10/22/2020 2878 RxNorm Jessica henderson, [place] - [facility], [facility] 14:46:46 51246 penicilli n V Not available Not available Not available Not available 10/22/2020 7984 RxNorm Jessica henderson[place] - [facility] [place], [facility] 14:46:55 55187 Ultracet medicatio n Not available Not available Not available 10/22/2020 86862 2 RxNorm Jessica henderson, [place] - [facility], [facility] 14:47:03 08091 Ultram medicatio n Not available Not available Not available 10/22/2020 70061 6 RxNorm Jessica henderson, [place] - [facility], [facility] 14:47:17 Medications Name Sig Start Date Stop [...] Updated DateTime 10/22/2020 149.86 cm 28.9 kg/m2 45722.71 g Jessica Cavanaugh [facility], [facility] 10/22/2020 14:46:27 Social History None recorded. Functional Status None recorded. Mental Status None recorded. Family History Nothing Reported. Medical History No medical history recorded. Gynecological HistoryNo gynecological history recorded. Obstetrics History GPAL:G 0 P 0 0 0 0 Past Encounters Encounter ID Performer Location Encounter Start Date Encounter Closed Date Diagnosis/Indication Diagnosis SNOMED-CT Code Diagnosis ICD10 Code Diagnosis Note [id number] Ananth Arana MD S Main Office [address] [place] [address],[address] [place] [address] 10/22/2020 14:38:17 10/23/2020 10:42:43 Pain of left hand 5970283631 29013 M79.642 Health Concerns Section Related Observation LastModified by Organization Detai ls LastModified Time None Recorded Concern Status LastModified by Organization Details LastModified Time None Recorded Advance Directives Directive None Recorded Payers Encounter Date Sequence Insurance Name Policy Number Policy Estes Covered Member ID Estes Member ID Guarantor Name 10/22/2020 1 [place] [employer] Rebecca Rossy Dony [id number] Rebecca Johnson 10/22/2020 2 [place] [employer] Rebecca Rossy Dony [id number] Rebecca Johnson Notes Date Note Type Note [...] as well as discomfort. Ananth Arana MD [address] [place] [address],[address], [place], [address], [facility] - [facility] [place], [facility] 10/22/2020 15:35:04 OBGyn Episode No OBEpisode recorded.
--- OUTSIDE RECORDS SUMMARY | 2024-09-09 19:35 | XMS_ITS ---
Author Organization [facility] Address [address] [place] [address] Care Team Providers Care Gastroenterology Professor Name Role Phone JENISEMarlinJACOBWILFREDO Primary Care Provider Dre Ceja Jr Unavailable [phone] ALLERGIES Allergen (clinical drug ingredient) Drug/Non Drug Allergy documented on EMR Reaction Allergy Type Onset Date Status seasonal allergies (uncoded) Unknown Allergy Active REASON FOR VISIT Patient presents today for EPIGASTRIC PAIN MEDICATIONS Medication SIG (Take, Route, Frequency, Duration) Notes Start Date End Date Status Meclizine HCl 12.5 MG Oral for 10 Active SUMAtriptan Succinate 100 MG TAKE 1 TABLET BY MOUTH EVERY DAY NEEDED FOR MIGRAINE HEADACHE Oral for 30 Active Pantoprazole Sodium 40 MG TAKE 1 TABLET BY MOUTH EVERY DAY FOR 30 DAYS for 90 Active Dicyclomine HCl 10 MG TAKE 1 CAPSULE BY MOUTH 2-4 TIMES PER DAY for 90 Active Vitamin D 50 MCG (1999 UT) 1 capsule Ora lly Once a day for 30 day(s) Active Vitamin B 12 100 MCG as directed Orally Active IMMUNIZATIONS Vaccine Route Administration Date Status Comme nts Influenza Unknown 10/26/2023 Refused SOCIAL HISTORY Tobacco Use: Social History Observation Description Date Details (start date - stop date) Current Smoker NA - NA Sex Assigned At : Social History Observation Description Sex Assigned At Unknown Tobacco Use/Smoking Question Answer Notes Patient is a current smoker Alcohol Screen Question Answer Notes Did you have a drink containing alcohol in the p ast year? No Points 0 Interpretation Negative PROBLEMS Problem Type ICD Code Onset Dates Problem Status W/U Status Risk SNOMED Code Notes Problem Gastroesophageal reflux disease, unspecified whether esophagitis present (K21.9) Active confirmed 176142903 VITAL SIGNS BMI 28.90 kg/m2 10/26/2023 Blood pressure systolic 000 mm Hg 10/26/19 24 Blood pressure diastolic 00 mm Hg 024 Height 60 in 10/26/2023 Temperature 97.3 degrees Fahrenheit 10/26/19 Weight 148 lbs 10/26/2023 Encounters Encounter Location Date Provider Diagnosis [facility] [address] [place] [address] 10/26/2023 Dre Keller Jr Epigastric pain R10.13 ; Irritable bowel syndrome with diarrhea K58.0 ; Upper abdominal pain R10.10 and Gastroesophageal reflux disease, unspecified whether esophagitis present K21.9 ASSESSMENTS Encounter Date Diagnosis Assessment Notes Treatment Notes Treatment Clinical Notes 10/26/2023 Epigastric pain (ICD-10 - R10.13) Gastroesophageal reflux disease material was printed 10/26/2023 Irritable bowel syndrome with diarrhea (ICD-10 - K58.0) 10/26/2023 Upper abdominal pain (ICD-10 - R10.10) 10/26/2023 Gastroesophageal reflux disease, unspecified whether esophagitis present (ICD-10 - K21.9) PLAN OF TREATMENT Treatment Notes Assessment Notes Epigastric pain Gastroesophageal ref lux disease material was printed Pending Test Test Name Order Date NM gastric emptying study 10/26/2023 Next Appt Details Follow Up: 1 Year, Reason: Provider Name:Dre arenas Jr, 10/24/2024 09:20:00 AM, [address], [address], [place], [address],
--- OUTSIDE RECORDS SUMMARY | 2024-09-09 19:35 | XMS_ITS | Clinical Summary ---
Author Organization [facility] Address [address] [place] [address] Care Team Providers Care Travel Registered Nurse Nicu Name Role Phone Karma Mace Primary Care Provider [phone] Allergies Active Allergy Reactions Criticality Noted Date [...] age to complete this topic Care Teams Travel Registered Nurse Nicu Relationship Specialty Start Date End Date Karma Mace [address] [address] [facility] [place] [phone] PCP - General Family Medicine 01/02/18
--- OUTSIDE RECORDS SUMMARY | 2024-09-09 19:35 | XMS_ITS ---
Author Organization [facility] Address [address] [place] [address] [place] [address] Care Team Providers Care Manager Asset Management Name Role Phone JENISEMarlinJACOB WILFREDO Primary Care Provider Unava jessica Keller Jr, Dre Roldan REASON FOR VISIT results of Encounters Encounter Location Date Provider Diagnosis [facility] [address] [place] [address] [place] [address] 11/21/2023 Dre Keller Jr PLAN OF TREATMENT Next Appt Details Provider Name:Dre arenas Jr, 10/24/2024 09:20:00 AM, [address] [place] [address], [address], [place], [address],
--- OUTSIDE RECORDS SUMMARY | 2024-09-09 19:35 | XMS_ITS | Patient Health Record ---
Author Organization [facility] Address [address] [place] [address] Care Team Providers Care Product Expert Name Role Phone JENISEMarlinJACOBWILFREDO Primary Care Provider Dre Ceja Jr Unavailable [phone] ALLERGIES Allergen (clinical drug ingredient) Drug/Non Drug Allergy documented on EMR Reaction Allergy Type Onset Date Status seasonal allergies (uncoded) Unknown Allergy Active RESULTS Component Value Reference Range Notes NM gastric emptying study Reviewed date:11/23/2023 08:29:57 AM Interpretation: Performing Lab: Notes/Report: [address] [address] Nuclear Medicine Report Signed Patient: Dmitri Johnson MR#: [id number] : 1975 Acct:[id number] Age/Sex: 48 / F ADM Date: 11/15/23 Loc: [facility] Attending Dr: Dre Keller MD Ordering Physician: Dre Keller MD Date of Service: 11/15/23 Procedure(s): NM gastric emptying study Accession Number(s): [id number] cc: Dre Keller MD EXAMINATION: RADIONUCLIDE SOLID FOOD GASTRIC EMPTYING 4-HOUR STUDY CLINICAL INFORMATION: Epigastric pain. COMPARISON: No previous gastric emptying study is available for comparison. TECHNIQUE: A standard meal consisting of 4 oz of Egg Beaters brand equivalent tagged with 1.0 mCi Tc-99m Sulfur Colloid, 8 oz water and 2 slices of toast with jelly was administered orally to the patient. Images were obtained using a dual head gamma camera in the anterior and posterior projections over of the stomach immediately post ingestion and at hourly intervals up to 4 hours post ingestion. The anterior and posterior counts at each time interval were averaged using the geometric mean and expressed as percentage of the immediate post ingestion counts. FINDINGS: There is good visualization of activity in the stomach immediately post ingestion. As the study progresses, there is good clearance of activity from the stomach and visualization of progressively increasing small bowel activity. By the end of the study, there is almost no retention noted in the stomach. Retention in the stomach at each time interval was: 1 hour 60% (normal 37%-90%) 2 hours 31% (normal 30%-60%) 3 hours 16% 4 hours 9% (normal 0%-10%) NM/NM gastric emptying study IMPRESSION: Normal 4-hour solid food gastric emptying study. Gastric emptying study grading per JNMT Consensus Recommendations in 2008: https://tech.snmjournals.org/content/36//44 Grade 1 (mild retention): 11-20% at 4 hours Grade 2 (moderate retention): 21-35% at 4 hours Grade 3 (severe retention): 36-50% at 4 hours Grade 4 (very severe retention): >50% retention at 4 hours Dictated By: Ramana Barreto MD Signed By: <Electronically signed by Ramana Barreto MD in OV> 11/15/23 1530 DD/ 1255 TD/TT: Mechanical Manager: RR REASON FOR REFERRAL No Information MEDICATIONS Medication SIG (Take, Route, Frequency, Duration) Notes Start Date End Date Status Meclizine HCl 12.5 MG Oral for 10 Active SUMAtriptan Succinate 100 MG TAKE 1 TABLET BY MOUTH EVERY DAY NEEDED FOR MIGRAINE HEADACHE Oral for 30 Active Dicyclomine HCl 10 MG TAKE 1 CAPSULE BY MOUTH 2-4 TIMES PER DAY for 90 Active Vitamin B 12 100 MCG as directed Orally Active Vitamin D 50 MCG (1999 UT) 1 capsule Ora lly Once a day for 30 day(s) Active Pantoprazole Sodium 40 MG TAKE 1 TABLET BY MOUTH EVERY DAY FOR 30 DAYS for 90 Active IMMUNIZATIONS Vaccine Route Administration Date Status Comme nts Influenza Unknown 04/21/2022 Refused Influenza Unknown 10/26/2023 Refused SOCIAL HISTORY Tobacco [...] W/U Status Risk SNOMED Code Notes Problem Irritable bowel syndrome with diarrhea (K58.0) Active confirmed 518150061 Problem Epigastric pain (R10.13) Active confirmed 86880765 Problem Upper abdominal pain (R10.10) Active confirmed 02660965 Problem Gastroesophageal reflux disease, unspecified whether esophagitis present (K21.9) Active confirmed 332993093 VITAL SIGNS Temperature 97.3 degrees Fahrenheit 10/26/2023 Blood pressure diastolic 00 mm Hg 10/26/2023 Height 60 in 10/26/2023 Blood pressure systolic 000 mm Hg 10/26/2023 Weight 148 lbs 10/26/2023 BMI 28.90 kg/m2 10/26/2023 Encounters Encounter Location Date Provider Diagnosis [facility] [address] [place] [address] 10/26/2023 Dre Keller Jr Epigastric pain R10.13 ; Irritable bowel syndrome with diarrhea K58.0 ; Upper abdominal pain R10.10 and Gastroesophageal reflux disease, unspecified whether esophagitis present K21.9 [facility] [address] [place] [phone] 11/21/2023 Dre Keller Jr ASSESSMENTS Encounter Date Diagnosis Assessment Notes Treatment Notes Treatment Clinical Notes 10/26/2023 Epigastric pain (ICD-10 - R10.13) Gastroesophageal reflux disease material was printed 10/26/2023 Irritable bowel syndrome with diarrhea (ICD-10 - K58.0) 10/26/2023 Upper abdominal pain (ICD-10 - R10.10) 10/26/2023 Gastroesophageal reflux disease, unspecified whether esophagitis present (ICD-10 - K21.9) PLAN OF TREATMENT Pending Test Test Name Order Date BUN 12/29/2022 CREATININE 12/29/2022 LIVER PROFILE 12/29/2022 LIPASE 12/29/2022 CBC w/o DIFF 12/29/2022 H PYLORI AG, STOOL 09/09/2022 XR GI SMALL BOWEL SERIES 04/21/2022 US ABD 12/29/2022 NM gastric emptying study 10/26/2023 Next Appt Details Provider Name:Dre Thakur Franco arenas Jr, 10/24/2024 09:20:00 AM, [address], [address], [place], [address], Insurance Providers Payer Name Payer Address Payer Phone Subscriber Number Group Number Insured Name Patient Relationship to Insured Coverage Start Date Coverage End Date MEDICARE OF [place] [address] [place] [address] [phone] [id number] DMITRI JOHNSON Self - patient is the insured MEDICAID OF [facility] [employer] [address] [place] [address] [phone] [id number] DMITRI JOHNSON Self - patient is the insured MEDICAL (GENERAL) HISTORY Medical History History ICD Code Fibromyalgia Vertigo Gastroesophageal reflux disease EGD 04/20 , no H. pylori. Back pain Vitamin D deficiency Anxiety/depression H. pylori infection the past Hyperlipidemia Elevated blood sugar Colonoscopy 04/20, normal, ten-year follo wup Surgical History Surgery Date(Month/Year) knee surgery 2001 partial hysterectomy Carpal tunnel surgery Shoulder and foot surgery
[2024-09-09] MEDS: Ibuprofen 600 MG TABLET PO (20:45)
[2024-09-09] MEDS: dexAMETHasone 2 MG TABLET 10 MG PO (20:45)
[2024-09-09] MEDS: diazePAM 5 MG TABLET PO (20:45)
[2024-09-09 20:48] VITALS: BP 128/74; PULSE 73; RESP 18; TEMP 36.6; O2SAT 99
== END 2024-09-09 20:48 | disposition home or self-care (01) ==
PROVIDERS: Emergency Provider Emergency Medicine; PCP Nurse Practitioner Family
DX: M54.16 Radiculopathy, lumbar region (principal); M79.604 Pain in right leg; Z79.899 Other long term (current) drug therapy
CPT/HCPCS: 99283; J8540

== ENCOUNTER 2024-09-10 08:48 | Outpatient (AMB) | payer MEDICARE, MEDICAID, SELFPAY ==
--- OUTSIDE RECORDS SUMMARY | 2024-09-10 09:13 | XMS_ITS ---
Author Organization [facility] Address [address] [place] [address] Care Team Providers Care Cloak Room Attendant Name Role Phone JENISEMarlinJACOBWILFREDO Primary Care Provider Dre Ceja Jr Unavailable ALLERGIES Allergen (clinical drug ingredient) Drug/Non Drug [...] unspecified whether esophagitis present (K21.9) Active confirmed 958729448 VITAL SIGNS BMI 28.90 kg/m2 10/26/2023 Blood pressure systolic 000 mm Hg 10/26/19 24 Blood pressure diastolic 00 mm Hg 024 Height 60 in 10/26/2023 Temperature 97.3 degrees Fahrenheit 10/26/19 Weight 148 lbs 10/26/2023 Encounters Encounter Location Date Provider Diagnosis [facility] [address] [place] [address] 10/26/2023 Dre Keller Jr Epigastric pain R10.13 [...] Name:Dre arenas Jr, 10/24/2024 09:20:00 AM, [address], [address], [place], [address],
--- OUTSIDE RECORDS SUMMARY | 2024-09-10 09:13 | XMS_ITS ---
Author Organization [facility] Address [address] [place] [address] [place] [phone] Care Team Providers Care Emergency Service Restorer Name Role Phone JENISEMarlinJACOB WILFREDO Primary Care Provider Unava jessica Keller Jr, Dre Roldan [phone] REASON FOR VISIT results of Encounters Encounter Location Date Provider Diagnosis [facility] [address] [place] [address] [place] [phone] 11/21/2023 Dre Keller Jr PLAN OF TREATMENT Next Appt Details Provider Name:Dre arenas Jr, 10/24/2024 09:20:00 AM, [address] [place] [address], [address], [place], [address],
--- OUTSIDE RECORDS SUMMARY | 2024-09-10 09:13 | XMS_ITS | Data Portability ---
Author Organization [place] [facility] [facility] [place] Address [address] [facility] [address] [place] [address] Care Team Providers Care Radio Interference Expert Name Role Phone WILFREDO RUBIO Primary Care Provider [phone] Assessment Encounter Date Assessment Date Assessment LastModified by Organization Details LastModified Time 11/02/2022 11/02/2022 Ms. Napoles presents with right shoulder pain and weakness due to impingement syndrome and possible rotator cuff tearing. Thus, I will send her for an MRI of her right shoulder for further evaluation. If she does have a full-thickness tear I will recommend surgical repair to optimize her future functional level. She will continue with her range of motion exercises in the meantime to prevent stiffness. santa Not available 11/02/2022 14:14:12 11/19/2022 11/19/2022 This is a 47-year-old female following up on her MRI of her right shoulder with rotator cuff repairs x2 by Dr. Valentine. With clinical exam findings nonsuggestive of read tearing please see details in MRI report. She states she is unable to have cortisone injections due to allergy hives . She states she cannot take nonsteroidal anti-inflammator ies due to GI upset and she does take Tylenol. I will send her back to formal physical therapy 3 times a week x6 weeks and I will have her follow-up with Dr. Simms for a second opinion surgical consultation. If her symptoms worsen she should contact my office. She agrees with the above-noted plan. Indirect care and treatment in conjunction with Dr. Perez Additional treatment plan discussed with the patient in detail included the following; - Analgesic pain medication for pain suppression (discussed were the pros, cons, benefits and risks as well as any black box warnings) - The use of topical pain relieving medication were discussed - The use of ice to decrease inflammation and pain - The use of assistive ambulatory devices for ambulation and fall prevention - Formal specific guided physical therapy program I reviewed my findings at length with the patient today. ? ? ?We discussed the nature and etiology of this problem along with current treatment options. We discussed the expected course and outcomes and what to expect. We also discussed risks and benefits. ? ? ?All of their questions were answered today, and there was exhibited understanding and comprehension of all that was discussed. 10 minutes were spent reviewing previous imaging and charting. ? ? ?10 minutes were spent obtaining patient history. ? ? ?5 minutes were spent on physical exam. ? ? ?5? ? ?minutes were spent explaining diagnosis and assessment. Today's documentation was made using voice recognition software. This note may contain grammatical errors secondary to the software. [email or web address] Not available 11/19/2022 12:49:33 Plan of Treatment Reminders Order Date Submit [...] Abnormal Flag Note LastModifiedBy Organization Detail LastModifiedTime 11/26/19 23 imagi ng/di agnos tic resul t No observ ation record ed. [email or web address] Not Available 11/25 09:52:35 03/10/20 23 imagi ng/di agnos tic resul t No observ ation record ed. [email or web address] Not Available 03/10 16:28:43 Result Notes None recorded. Problems Name Problem SNOMED Code Status Onset Date Resolution Date Notes Provider Name and Address Organization Details Recorded Time Impingement syndrome of right shoulder region 3722114566748 02 Active 2022 Jonathan Valentine MD [address] [facility],[address], [place], [address], [place] [facility] 3 14:13:29 Pain of right shoulder joint 7797488529465 9100 Active 2022 SOULEYMANE BONILLA PA-C [address] [facility],[address], [place], [address] [facility] [place] 12:48:44 Problem Notes None recorded. Procedures Surgical History Date Name Laterality Status Provider Name and Address Organization Details Recorded Time Shoulder Surgery completed [facility] 11/02/2022 13:57:03 Knee arthroscopy/hurd rgery completed [facility] 11/02/2022 13:57:11 Carpal tunnel surgery completed [facility] 11/02/2022 13:57:18 delivery completed [facility], P 11/02/2022 13:57:26 Imaging Results Imaging Date Name Status LastModified by Organiz ation Details LastModified Time 11/25/2022 imaging/diag nostic result completed Information not available 11/25/2022 09:52:35 03/10/2023 imaging/diag nostic result completed Information not available 03/10/2023 16:28:43 Procedure Notes None recorded. Medical Equipment None Reported. Allergies Allergen ID Allergen Name Allergen Category Reaction Reaction Severity Criticality Documentation Date Start Date Code Code System Note Provider Name and Address Organization Details Recorded Time 1523 cortisone medicatio n Not available Not available Not available 11/02/2022 2878 RxNorm Priyanka Inman null, [facility], P 13:55:46 1524 Product containin g penicilli n and antibioti c (product) medicatio n Not available Not available Not available 11/02/2022 05773 05 SNOMED Priyanka Inman null, [place] [facility] 13:55:52 1525 Ultram medicatio n Not available Not available Not available 11/02/2022 41862 6 RxNorm Priyanka Inman null, [facility] 13:56:01 Medications Name Sig Start Date Stop Date Status Note LastModified by Organization Details LastModified Time atorvastatin 20 mg tablet TAKE 1 TABLET BY MOUTH EVERY DAY active Not Available Not Available No t Available sumatriptan 100 mg tablet TAKE 1 TABLET BY MOUTH EVERY DAY NEEDED FOR MIGRAINE HEADACHE active Not Available Not Available No t Available ondansetron HCl 8 mg tablet TAKE 1 TABLET BY MOUTH EVERY 8 HOURS NEEDED FOR NAUSEA AND VOMITING FOR 14 DAYS active Not Available Not Available Not Available meclizine 12.5 mg tablet TAKE 1 TABLET BY MOUTH FOUR TIMES A DAY NEEDED FOR DIZZINESS FOR 14 DAYS active Not Available Not Available Not Available hydroxyzine HCl 50 mg tablet TAKE 1 TABLET BY MOUTH 3 TIMES A DAY FOR 14 DAYS NEEDED FOR ANXIETY active Not Available Not Available Not Available aspirin 81 mg tablet,delay ed release TAKE 1 TABLET BY MOUTH EVERY DAY active Not Available Not Available No t Available levothyroxin e 100 mcg tablet TAKE 1 TABLET BY MOUTH EVERY DAY active Not Available Not Available No t Available oxycodone-ac etaminophen 5 mg-325 mg tablet TAKE 1 TABLET BY MOUTH EVERY 6 HOURS NEEDED FOR PAIN active Not Available Not Available No t Available prednisolone acetate 1 % eye drops,suspen paty INSTILL 1 DROP IN RIGHT EYE FOUR TIMES A DAY active Not Available Not Available No t Available pantoprazole 40 mg tablet,delay ed release TAKE 1 TABLET BY MOUTH EVERY DAY FOR 30 DAYS active Not Available Not Available No t Available albuterol sulfate HFA 90 mcg/actuatio n aerosol inhaler INHALE 2 PUFFS BY MOUTH EVERY 6 HOURS NEEDED FOR WHEEZING/SH ORTNESS OF BREATH FOR 7 DAYS active Not Available Not Available No t Available fluticasone propionate 50 mcg/actuatio n nasal spray,suspen paty USE 1 SPRAY IN EACH NOSTRIL TWICE A DAY active Not Available Not Available Not Available doxycycline hyclate 100 mg tablet TAKE 1 TABLET BY MOUTH EVERY 12 HOURS FOR 7 DAYS active Not Available Not Available N ot Available dicyclomine 10 mg capsule TAKE 1 CAPSULE BY MOUTH 2-4 TIMES PER DAY active Not Available Not Available No t Available ipratropium bromide 21 mcg (0.03 %) nasal spray INSTILL 2 SPRAYS INTO EACH NOSTRIL THREE TIMES A DAY DIRECTED *INSURANCE MAX 30ML/30DAYS * active Not Available Not Available No t Available Vitamin B-12 1,000 mcg tablet TAKE 1 TABLET BY MOUTH ONCE A DAY ON AN EMPTY STOMACH active Not Available Not Available No t Available cyclobenzapr ine 5 mg tablet TAKE 1 TABLET BY MOUTH 3 TIMES A DAY FOR 7 DAYS NEEDED FOR MUSCLE SPASM active Not Available Not Available No t Available cholecalcife rol (vitamin D3) 1,250 mcg (50,000 unit) capsule TAKE 1 CAPSULE BY MOUTH ONCE A WEEK active Not Available Not Available No t Available diclofenac 1 % topical gel APPLY TO AFFECTED AREA TWICE A DAY FOR 10 DAYS MAX 16 GRAMS/DAY/S DANIEL JOINT OF LOWER EXTREMITIES active Not Available Not Available Not Available Aimovig Autoinjector 70 mg/mL subcutaneous auto-injecto r INJECT 70 MG UNDER THE SKIN EVERY 28 DAYS active Not Available Not Available No t Available Flowflex COVID-19 Antigen Home Test kit USE DIRECTED active Not Available Not Available No t Available Vitals Date Recorded Body height Body mass index (BMI) Body weight Provider Name and Address Organization Details Last Updated DateTime 11/02/2022 149.86 cm 28.7 kg/m2 [address] [place] [facility], 11/02/2022 13:56:47 Social History None recorded. Functional Status None recorded. Mental Status None recorded. Family History Relationship Description Onset Age of this Age Resolved Age Notes LastModified by Organization Details LastModified Time Father No current problems or disability [email or web address] Not available 11/02 13:56:53 Mother No current problems or disability [email or web address] Not available 11/02 13:56:53 Medical History No medical history recorded. Gynecological HistoryNo gynecological history recorded. Obstetrics History GPAL:G 0 P 0 0 0 0 Past Encounters Encounter ID Performer Location Encounter Start Date Encounter Closed Date Diagnosis/Indication Diagnosis SNOMED-CT Code Diagnosis ICD10 Code Diagnosis Note [id number] MD PHIL Tovar [facility] [address] [facility] [address] [place] [address] 11/02/2022 13:51:59 11/02/2022 14:11:38 Impingement syndrome of right shoulder region 0759326784 18343 M75.41 [id number] MD PHIL Pizarro [facility] [address] [facility] [address] [place] [address] 11/19/2022 11:16:13 11/19/2022 13:20:48 Pain of right shoulder joint [id number] 1283381 M25.511 Health Concerns Section Related Observation LastModified by Organization Detai apollo LastModified Time None Recorded Concern Status LastModified by Organization Details LastModified Time None Recorded Advance Directives Directive None Recorded Payers Encounter Date Sequence Insurance Name Policy Number Policy Estes Covered Member ID Estes Member ID Guarantor Name 11/02/2022 2 [place] [facility] Rebecca Napoles [id number] Rebecca Napoles 11/02/2022 1 MEDIC[place] B[place] [facility] Rebecca Napoles [id number] Rebecca Napoles 11/19/2022 2 [place] [facility] Rebecca Napoles [id number] Rebecca Napoles 11/19/2022 1 [place] [facility] Rebecca Napoles [id number] Rebecca Napoles Notes Date Note Type Note Provider Name and Address Organization Details Recorded Time 11/02/2022 text/html The patient presents with complaints of progressively worsening right shoulder pain and weakness. She describes her pain as sharp in nature. Most of the pain is along the lateral aspect of her shoulder. She did undergo right shoulder surgery several years ago. She got fairly good relief from that surgery initially. She did reinjure her right shoulder approximately 1 year ago while lifting a heavy object. Since that time her symptoms have gotten worse in spite of continued nonoperative treatments. She has done physical therapy for 12 weeks over the last 6 months which aggravated her pain. She has also tried Tylenol and anti-inflammatory medicines which gave her minimal relief. The patient has had injections in the past which gave her only temporary relief. The patient reports difficulty lifting her right hand above shoulder height. Jonathan Valentine MD [address], [place], [address], [place] [facility], 11/02/2022 14:14:22 11/19/2022 text/html 47-year-old becky ojeda accompanied by her mother at today's visit here for follow-up on her MRI of her right shoulder that was conducted on with findings consistent with postoperative changes to the infraspinatus tendon versus focal tear blunting of the posterior superior labrum concerning for tear however grossly unchanged from her prior MRI study. History of rotator cuff repairs x2 by Dr. Valentine. Patient states he has pain at night however she has strength here for follow-up. SOULEYMANE BONILLA PA-C [address], [place], [address], [place] [facility] 11/19/2022 12:49:46 OBGyn Episode No OBEpisode recorded.
--- OUTSIDE RECORDS SUMMARY | 2024-09-10 09:13 | XMS_ITS | Patient Health Record ---
Author Organization [facility] Address [address] [place] [address] Care Team Providers Care Bean Snipper Name Role Phone JENISEMarlinJACOBWILFREDO Primary Care Provider Dre Ceja Jr Unavailable ALLERGIES Allergen (clinical drug ingredient) Drug/Non Drug Allergy documented on EMR Reaction Allergy Type Onset Date Status seasonal allergies (uncoded) Unknown Allergy Active RESULTS Component Value Reference Range Notes NM gastric emptying study Reviewed date:11/23/2023 08:29:57 AM Interpretation: Performing Lab: Notes/Report: [address] [address] Nuclear Medicine Report Signed Patient: Dmitri Johnson MR#: [id number] : 1975 Acct:[id number] Age/Sex: 48 / F ADM Date: 11/15/23 Loc: [facility] Attending Dr: Dre Keller MD Ordering Physician: Dre Keller MD Date of Service: 11/15/23 Procedure(s): NM gastric emptying study Accession Number(s): [id number] cc: Dre Keller MD EXAMINATION: RADIONUCLIDE SOLID [...] in OV> 11/15/23 1530 DD/ 1255 TD/TT: University Administrative Assistant: RR REASON FOR REFERRAL No Information MEDICATIONS [...] bowel syndrome with diarrhea (K58.0) Active confirmed 451532880 Problem Epigastric pain (R10.13) Active confirmed 48873600 Problem Upper abdominal pain (R10.10) Active confirmed 02194981 Problem Gastroesophageal reflux disease, unspecified whether esophagitis present (K21.9) Active confirmed 374282066 VITAL SIGNS Temperature 97.3 degrees Fahrenheit 10/26/2023 Blood pressure diastolic 00 mm Hg 10/26/2023 Height 60 in 10/26/2023 Blood pressure systolic 000 mm Hg 10/26/2023 Weight 148 lbs 10/26/2023 BMI 28.90 kg/m2 10/26/2023 Encounters Encounter Location Date Provider Diagnosis [facility] [address] [place] [phone] 10/26/2023 Dre Keller Jr Epigastric pain R10.13 ; Irritable bowel syndrome with diarrhea K58.0 ; Upper abdominal pain R10.10 and Gastroesophageal reflux disease, unspecified whether esophagitis present K21.9 [facility] [address] [place] [phone] 11/21/2023 Dre Keller Jr ASSESSMENTS Encounter Date [...] Franco arenas Jr, 10/24/2024 09:20:00 AM, [address], [address], [place], [address], Insurance Providers Payer Name Payer Address Payer Phone Subscriber Number Group Number Insured Name Patient Relationship to Insured Coverage Start Date Coverage End Date MEDICARE OF [place] [address] [place] [id number] DMITRI JOHNSON Self - patient is the insured MEDICAID OF [facility] [employer] [address] [place] [address] [id number] DMITRI JOHNSON Self - patient is the [...]
--- OUTSIDE RECORDS SUMMARY | 2024-09-10 09:13 | XMS_ITS | Clinical Summary ---
Author Organization [facility] Address [address] [place] [address] Care Team Providers Care Hydrologist Name Role Phone Karma Mace Primary Care Provider [phone] Allergies Active Allergy Reactions Criticality Noted Date [...] age to complete this topic Care Teams Hydrologist Relationship Specialty Start Date End Date Karma Mace [address] [address] [facility] [place] [phone] PCP - General Family Medicine 01/02/18
--- NOTE | 2024-09-10 09:17 | HO.SPINEOV ---
Intake Visit Reasons: F/u ok per Jono Burrell PA-C Intake Note: Ms. Napoles is here to F/u after ED. Hot Wort Settler Required: No Allergies Penicillins Allergy (Severe, Verified 09/09/24 14:02) Hives tramadol [From Ultracet] Allergy (Severe, Verified 09/09/24 14:02) hives cortisone Allergy (Severe, Uncoded 09/09/24 14:02) hives Assessment & Plan Assessment & Plan (1) Lumbar disc herniation: Code(s): M51.26 - Other intervertebral disc displacement, lumbar region Category: Medical Plan Mrs Napoles is here as an emergency room follow-up. She underwent a right L4-5 microdiskectomy on September 06 and unfortunately her pain in her legs seem to be aggravated after surgery. We spoke a few times over the weekend and she ultimately ended up in the emergency room where they treated her with a steroid, Toradol and Valium and that seemed to get things to quiet down. She has never responded to gabapentin in the past. On my exam she appears uncomfortable and she is limping but her strength is full, sensation is normal, pulses are good and no signs of swelling or calf tenderness to suggests this is a vascular issue. Her wound is healed up very nicely with Steri-Strips still in place. There is a small amount of ecchymosis right beneath the incision. I reassured her that I think this should go away with time. I called her on a Medrol Dosepak, Pepcid for gastric prophylaxis and will also call and Valium as she seemed to respond to that well last night. She can continue to use the oxycodone as well. I asked her to call and check in later in the week. Jono Munoz MD, PhD [facility] Medications: New diazepam (Valium) 5 mg PO Q8H PRN 30 tabs 0RF muscle spasm Coding Level of Care Code Global (24346) Diagnoses Lumbar disc herniation M51.26
== END 2024-09-10 09:32 | disposition home or self-care (01) ==
PROVIDERS: PCP Nurse Practitioner Family; Visit Provider Physician Assistant
DX: M51.26 Other intervertebral disc displacement, lumbar region (principal)
CPT/HCPCS: 99024

== ENCOUNTER → 2024-09-10 08:48 | Outpatient (BNVA) | payer MEDICARE, MEDICAID, SELFPAY | PROVIDERS: PCP Nurse Practitioner Family; Visit Provider Physician Assistant | DX: M51.26 Other intervertebral disc displacement, lumbar region (principal); Z09 Encounter for follow-up examination after completed treatment for conditions other than malignant neoplasm | CPT/HCPCS: 99212 ==

== ENCOUNTER 2024-09-13 10:19 | Emergency (ER) | payer MEDICARE, MEDICAID, SELFPAY ==
[2024-09-13 10:50] VITALS: BP 143/55; PULSE 70; RESP 18; TEMP 36.4; O2SAT 99; BMI 28.5
--- NOTE | 2024-09-13 10:55 | ED.GENADULT ---
HPI - General Adult General Chief complaint: Back Pain/Injury Stated complaint: Back pain, recent surgery Time Seen by Provider: 09/13/24 13:33 Related Data Home Medications ?Medication ?Instructions ?Recorded ?Confirmed albuterol sulfate 90 mcg/actuation 2 puff inhalation QID PRN wheezing 03/17/23 08/24/24 aerosol inhaler (Ventolin HFA) diclofenac sodium 1 % topical gel 1 g topical BID 03/17/23 08/24/24 rizatriptan 10 mg tablet 10 mg PO DAILY PRN Heartburn 03/17/23 08/24/24 aspirin 81 mg tablet,delayed 81 mg PO DAILY 04/08/23 08/24/24 release atorvastatin 20 mg tablet 20 mg PO DAILY 04/08/23 08/24/24 cyanocobalamin (vitamin B-12) 1,000 mcg PO DAILY 04/08/23 08/24/24 1,000 mcg tablet (Vitamin B-12) levothyroxine 100 mcg tablet 100 mcg PO DAILY 04/08/23 08/24/24 pantoprazole 40 mg tablet,delayed 40 mg PO DAILY 04/08/23 08/24/24 release acetaminophen 650 mg 650 mg PO Q8H PRN pain 08/27/24 08/27/24 tablet,extended release erenumab-aooe 70 mg/mL 70 mg subcut Q28D 08/27/24 08/27/24 subcutaneous auto-injector (Aimovig Autoinjector) ondansetron HCl 8 mg tablet 8 mg PO Q8H PRN nausea/vomiting 08/27/24 08/27/24 Previous Rx's ?Medication ?Instructions ?Recorded docusate sodium 100 mg capsule 100 mg PO BID #20 caps 09/06/24 (Colace) diazepam 5 mg tablet (Valium) 5 mg PO Q8H PRN muscle spasm #30 09/10/24 tabs oxycodone 5 mg tablet 5 mg PO Q4H PRN pain #30 tabs 09/14/24 Allergies Allergy/AdvReac Type Severity Reaction Status Date / Time Penicillins Allergy Severe Hives Verified 09/13/24 10:52 tramadol [From Ultracet] Allergy Severe hives Verified 09/13/24 10:52 prednisone Allergy Difficulty Verified 09/13/24 10:52 Breathing cortisone Allergy Severe hives Uncoded 09/09/24 14:02 [facility] Past Medical History Medical History (Updated 09/14/24 @ 16:48 by Minda Nicholson NP) No natural teeth Degenerative arthritis Arthritis Back pain Right ovarian cyst Renal calculi Weakness of right leg Hx of thyroid irradiation (~1994) PONV (postoperative nausea and vomiting) Cervical disc disease Anxiety Depression Hypothyroidism Migraines GERD (gastroesophageal reflux disease) Elevated cholesterol Asthma Hyperthyroidism Surgical History (Updated 08/24/24 @ 12:19 by Taylor Cummins RN) Hx of tonsillectomy History of carpal tunnel release Hx of tubal ligation History of esophagogastroduodenoscopy (EGD) H/O colonoscopy Hx of arthroscopy of right knee History of partial hysterectomy History of toe surgery History of 3 sections History of arthroscopy of left knee History of shoulder surgery Social History Social History (Updated 04/21/23 @ 09:20 by Delores Sullivan CMA) Household Members: Significant Other Housing: House Are you a primary manager long term care to a significant other at home: Yes (son) Do you presently have visiting nurse or other home services: No Alcohol intake: never Patient Tobacco Use Status: Current everyday Tobacco user Tobacco use type: Cigarette Cigarette Packs Per Day: 0.5 Cigarettes Per Day: 10 Second Hand Smoke Exposure: No Advance Directives: No Advance Directives Information Provided: No Current occupational status: disabled 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 Patient is a 49-year-old female with history of small disc herniation compressing right L5 nerve root with recent discectomy presenting with severe lower back pain radiating down right leg. States she called Dr. Munoz' office and was told this is normal post procedure. Taking ibuprofen, muscle relaxers, oxycodone without relief. Denies bowel or bladder incontinence, fevers, saddle anesthesia. Plan: CT L spine 1305-Notified by security that patient left due to wait time despite security encouraging patient to remain for evaluation. Medications Administered Discontinued Medications Generic Name Dose Route Start Last Admin Trade Name Freq PRN Reason Stop Dose Admin Ibuprofen 600 mg 09/13/24 12:26 09/13/24 12:54 Ibuprofen 600 Mg Tablet PO 09/13/24 12:27 Not Given ONCE ONE Medical Decision Making Lab Data Labs: Lab Results 09/13/24 Range/Units 12:41 Influenza Type A (PCR) NEGATIVE (Negative) Influenza Type B (PCR) NEGATIVE (Negative) RSV RNA Qual (PCR) NEGATIVE (Negative) SARS-CoV-2 RNA (RT-PCR) NEGATIVE (Negative) Discharge Plan Discharge Clinical Impression: Back pain Patient Disposition: Left W/O Completing Treatment Prescriptions: No Action oxycodone 5 mg tablet 5 mg PO Q4H PRN (Reason: pain) Qty: 30 0RF Rx Instructions: Partial Fill upon patient request. atorvastatin 20 mg tablet 20 mg PO DAILY cyanocobalamin (vitamin B-12) [Vitamin B-12] 1,000 mcg tablet 1,000 mcg PO DAILY aspirin 81 mg tablet,delayed release (DR/EC) 81 mg PO DAILY levothyroxine 100 mcg tablet 100 mcg PO DAILY pantoprazole 40 mg tablet,delayed release (DR/EC) 40 mg PO DAILY Aimovig Autoinjector 70 mg/mL auto-injector 70 mg SUBCUT Q28D acetaminophen 650 mg tablet extended release 650 mg PO Q8H PRN (Reason: pain) ondansetron HCl 8 mg tablet 8 mg PO Q8H PRN (Reason: nausea/vomiting) docusate sodium [Colace] 100 mg capsule 100 mg PO BID Qty: 20 0RF rizatriptan 10 mg tablet 10 mg PO DAILY PRN (Reason: Heartburn) diclofenac sodium 1 % gel 1 g topical BID albuterol sulfate [Ventolin HFA] 90 mcg/actuation HFA aerosol inhaler 2 puff inhalation QID PRN (Reason: wheezing) diazepam [Valium] 5 mg tablet 5 mg PO Q8H PRN (Reason: muscle spasm) Qty: 30 0RF Discharge Date/Time: 09/13/24 13:49
--- NOTE | 2024-09-13 12:52 | PC.NURSE ---
Pt offered ibuprofen, that's not to work. I can't feel my hands. Pt hyperventilating, anxious appearing and verbalized being upset about the weight time. Pt reassured that the department is very full and we are trying to get everyone back as soon as we can.
--- NOTE | 2024-09-13 13:04 | PC.NURSE ---
Pt refused CT Scan, previouslu refused offered pain medication. Several discussions had with pt regarding wait times as the department is busy and getting patients back as soon as they are able to. Pt does not want to wait any longer, has made the decision to go to [facility]. clinical documentation spec made aware.
[2024-09-13 13:39] LABS: Influenza A PCR NEGATIVE (Negative); Influenza B PCR NEGATIVE (Negative); Resp Syncy Virus RNA Qual PCR NEGATIVE (Negative); SARS COV2 PCR INHOUSE NEGATIVE (Negative)
--- OUTSIDE RECORDS SUMMARY | 2024-09-13 13:42 | XMS_ITS | Data Portability ---
Author Organization [facility], [facility], [facility] Main Office Address [address] [place] [address] Care Team Providers Care Wire Spring Relay Adjuster Name Role Phone WILFREDO HAYNES Primary Care Provider DALLASWILFREDO VALERO Referring Provider [phone] Assessment Encounter Date Assessment Date Assessment LastModified [...] al Depart ment of Radiol ogy [address] [place], [address] Name: Maggie JOHNSON : [id number] Date of Servic e: 1533 Acct Number : [id number] Order Number : [id number] Locati on: WORD Report Number : [id number] Servic e: REG REF/ Reques ting Physic yohannes: Elena matthews,Corky Villa MD Catego ry: ORTHOP EDIC RADIOL OGY SV Exam: WRIST 3 VIEW MINIMI M Left Access ion #: [id number] VH Signs/ Sympto ms: PAIN ASSESS [...] er, , Non Physic yohannes, , , [facility] (Radiology) [address] [place] [address], [address], 09/10/2021 10:57:15 10/23/19 21 10/22/2020 XR, hand, 3 or more view [facility] Depart ment of Radiol ogy [address] [place] [address], [phone] Name: Maggie JOHNSON : [id number] Date of Servic e: 1533 Acct Number : [id number] Order Number : [id number] Locati on: WORD Report Number : [id number] Servic e: REG REF/ Reques ting Physic yohannes: Elena matthews,Corky Villa MD Catego ry: ORTHOP EDIC RADIOL OGY SV Exam: HAND 3 VIEW MINIMU M Left Access ion #: [id number] VH Signs/ Sympto ms: PAIN ASSESS [...] er, , Non Physic yohannes, , , [facility] (Radiology) [address] [place] [address], [address], 09/10/2021 10:57:15 Result Notes None recorded. Problems Name Problem SNOMED Code Status Onset Date Resolution Date Notes Provider Name and Address Organization Details Recorded Time Hypertensive disorder 70283926 Active 2020 Jessica henderson [place] - [facility], [facility] 14:50:19 Anxiety 79777737 Active 2020 Jessica henderson [place] - [facility], [facility] 14:50:27 Hyperlipidemia 08643691 Active 2020 Jessica henderson [place] - [facility], [facility] 14:50:37 Problem Notes None recorded. Procedures Surgical History None recorded. Imaging Results Imaging Date Name Status LastModified by Organiz ation Details LastModified Time 10/22/2020 XR, wrist, 3 or more view completed [facility] (Radiology) [address] [place] [address], [address], 09/10/2021 10:57:15 10/22/2020 XR, hand, 3 or more view completed [facility] (Radiology) [address] [place], [address], 09/10/2021 10:57:15 Procedure Notes None recorded. Medical Equipment None Reported. Allergies Allergen ID Allergen Name Allergen Category Reaction Reaction Severity Criticality Documentation Date Start Date Code Code System Note Provider Name and Address Organization Details Recorded Time 17649 cortisone medicatio n Not available Not available Not available 10/22/2020 2878 RxNorm Jessica henderson, [place] - [facility], [facility] 14:46:46 19667 penicilli n V Not available Not available Not available Not available 10/22/2020 7984 RxNorm Jessica henderson, [place] - [facility], [facility] 14:46:55 61053 Ultracet medicatio n Not available Not available Not available 10/22/2020 31652 2 RxNorm Jessica henderson, [place] - [facility], [facility] 14:47:03 53037 Ultram medicatio n Not available Not available Not available 10/22/2020 47442 6 RxNorm Jessica henderson, [place] - [facility], [facility] 14:47:17 Medications Name Sig Start Date Stop [...] Updated DateTime 10/22/2020 149.86 cm 28.9 kg/m2 66174.71 g Jessica Cavanaugh [facility], [facility] 10/22/2020 14:46:27 Social History None recorded. Functional Status None recorded. Mental Status None recorded. Family History Nothing Reported. Medical History No medical history recorded. Gynecological HistoryNo gynecological history recorded. Obstetrics History GPAL:G 0 P 0 0 0 0 Past Encounters Encounter ID Performer Location Encounter Start Date Encounter Closed Date Diagnosis/Indication Diagnosis SNOMED-CT Code Diagnosis ICD10 Code Diagnosis Note [id number] Ananth Arana MD S Main Office [address] [place] [address],[address] [place] [address] 10/22/2020 14:38:17 10/23/2020 10:42:43 Pain of left hand 6786566419 30870 M79.642 Health Concerns Section Related Observation LastModified by Organization Detai ls LastModified Time None Recorded Concern Status LastModified by Organization Details LastModified Time None Recorded Advance Directives Directive None Recorded Payers Encounter Date Sequence Insurance Name Policy Number Policy Estes Covered Member ID Estes Member ID Guarantor Name 10/22/2020 1 [place] [employer] [facility] Rebecca Rossy Dony [id number] Rebecca Johnson 10/22/2020 2 [place] [facility] Rebecca Rossy Dony [id number] Rebecca Johnson Notes Date Note Type Note [...] well as discomfort. Ananth Arana MD [address] [place] [address],[address], [place], [address], [facility] - [facility], [facility] 10/22/2020 15:35:04 OBGyn Episode No OBEpisode recorded.
--- OUTSIDE RECORDS SUMMARY | 2024-09-13 13:42 | XMS_ITS ---
Author Organization [facility] Address [address] [place] [address] [place] [address] Care Team Providers Care Miller First Name Role Phone JENISEMarlinJACOB WILFREDO Primary Care Provider Unava jessica Keller Jr, Dre Roldan REASON FOR VISIT results of Encounters Encounter Location Date Provider Diagnosis [facility] [address] [place] [address] [place] [address] 11/21/2023 Dre Keller Jr PLAN OF TREATMENT Next Appt Details Provider Name:Dre arenas Jr, 10/24/2024 09:20:00 AM, [address] [place] [address], [address], [place], [address],
--- OUTSIDE RECORDS SUMMARY | 2024-09-13 13:42 | XMS_ITS | Clinical Summary ---
Author Organization [facility] Address [address] [place] [address] Care Team Providers Care Steam Power Plant Operator Name Role Phone Karma Mace Primary Care Provider +1- [phone] Allergies Active Allergy Reactions Criticality Noted Date [...] age to complete this topic Care Teams Steam Power Plant Operator Relationship Specialty Start Date End Date Karma Mace [address] [address] [facility] [place] [phone] PCP - General Family Medicine 01/02/18
--- OUTSIDE RECORDS SUMMARY | 2024-09-13 13:42 | XMS_ITS ---
Author Organization [facility] Address [address] [place] [address] Care Team Providers Care Copy Supervisor Name Role Phone JENISEMarlinJACOBWILFREDO Primary Care Provider Dre Ceja Jr Unavailable [phone] ALLERGIES Allergen (clinical drug ingredient) Drug/Non [...] unspecified whether esophagitis present (K21.9) Active confirmed 564572959 VITAL SIGNS BMI 28.90 kg/m2 10/26/2023 Blood pressure systolic 000 mm Hg 10/26/19 24 Blood pressure diastolic 00 mm Hg 024 Height 60 in 10/26/2023 Temperature 97.3 degrees Fahrenheit 10/26/19 Weight 148 lbs 10/26/2023 Encounters Encounter Location Date Provider Diagnosis [facility] [address] [place] [address] 10/26/2023 Dre Keller Jr Epigastric pain R10.13 [...] Name:Dre arenas Jr, 10/24/2024 09:20:00 AM, [address], [address], [place], [address],
--- OUTSIDE RECORDS SUMMARY | 2024-09-13 13:42 | XMS_ITS | Patient Health Record ---
Author Organization [facility] Address [address] [place] [address] Care Team Providers Care Rotary Pump Operator Name Role Phone JENISEMarlinJACOB WILFREDO Primary Care Provider Dre Ceja Jr Unavailable ALLERGIES Allergen (clinical drug ingredient) Drug/Non Drug Allergy documented on EMR Reaction Allergy Type Onset Date Status seasonal allergies (uncoded) Unknown Allergy Active RESULTS Component Value Reference Range Notes NM gastric emptying study Reviewed date:11/23/2023 08:29:57 AM Interpretation: Performing Lab: Notes/Report: [address] [address] Nuclear Medicine Report Signed Patient: Dmitri Johnson MR#: [id number] : 1975 Acct:[id number] Age/Sex: 48 / F ADM Date: 11/15/23 Loc: [facility] Attending Dr: Dre Keller MD Ordering Physician: Dre Keller MD Date of Service: 11/15/23 Procedure(s): NM gastric emptying study Accession Number(s): [id number] cc: Dre Keller MD EXAMINATION: RADIONUCLIDE SOLID [...] in OV> 11/15/23 1530 DD/ 1255 TD/TT: Livestock Yard Supervisor: RR REASON FOR REFERRAL No Information MEDICATIONS [...] bowel syndrome with diarrhea (K58.0) Active confirmed 489350199 Problem Epigastric pain (R10.13) Active confirmed 77073611 Problem Upper abdominal pain (R10.10) Active confirmed 22526553 Problem Gastroesophageal reflux disease, unspecified whether esophagitis present (K21.9) Active confirmed 335379719 VITAL SIGNS Temperature 97.3 degrees Fahrenheit 10/26/2023 Blood pressure diastolic 00 mm Hg 10/26/2023 Height 60 in 10/26/2023 Blood pressure systolic 000 mm Hg 10/26/2023 Weight 148 lbs 10/26/2023 BMI 28.90 kg/m2 10/26/2023 Encounters Encounter Location Date Provider Diagnosis [facility] [address] [place] [address] 10/26/2023 Dre Keller Jr Epigastric pain R10.13 ; Irritable bowel syndrome with diarrhea K58.0 ; Upper abdominal pain R10.10 and Gastroesophageal reflux disease, unspecified whether esophagitis present K21.9 [facility] [address] [place] [address] 11/21/2023 Dre Keller Jr ASSESSMENTS Encounter Date [...] Franco arenas Jr, 10/24/2024 09:20:00 AM, [address], [address], [place], [address], Insurance Providers Payer Name Payer Address Payer Phone Subscriber Number Group Number Insured Name Patient Relationship to Insured Coverage Start Date Coverage End Date MED[place] OF [place] [address] [place] [id number] [phone] [id number] DMITRI JOHNSON Self - patient is the insured MEDICAID OF [facility] [employer] [address] [place] [address] [id number] DMITRI JOHNSON Self - patient is the [...]
== END 2024-09-13 13:49 | disposition left against medical advice (07) ==
LOC: HO.ED 13:34
PROVIDERS: Registered Nurse Emergency; Emergency Provider Emergency Medicine; PCP Nurse Practitioner Family
DX: M54.50 Low back pain, unspecified (principal); F17.210 Nicotine dependence, cigarettes, uncomplicated; Z03.818 Encounter for observation for suspected exposure to other biological agents ruled out; Z79.899 Other long term (current) drug therapy
CPT/HCPCS: 0241U; 72148; 99282; 99283

== ENCOUNTER 2024-09-13 14:49 | Outpatient (REF) | payer MEDICARE, MEDICAID, SELFPAY ==
--- NOTE | ~2024-09-13 | MR_ITS ---
CLINICAL HISTORY: M51.26 - Other intervertebral disc displacement, lumbar region MR lumbar spine without gadolinium Comparison: None Findings: No scoliosis or spondylolisthesis. No acute fracture. Cauda equina and conus medullaris within normal limits. The patient is status post partial L4-L5 discectomy. There is a tract fluid from the discectomy site to a subcutaneous fluid collection measuring 2.3 x 1.6 cm. There is no surrounding edema to suggest infection. There is a small residual/recurrent extruded disc fragment in the right lateral recess at L4-L5 measuring 7 mm, best seen on series 8, image 20. This is impinging the descending nerve root. Disc osteophyte complex at L5-S1 resulting in moderate right neural foraminal stenosis. IMPRESSION: 1. Small residual/recurrent extruded disc fragment in the right lateral recess at L4-L5 is impinging the descending nerve root. 2. Simple fluid collection in the subcutaneous tissues tracking along the surgical site likely represents a seroma. 3. Disc osteophyte complex at L5-S1 resulting in moderate right neural foraminal stenosis. This document has been electronically signed by: Ranjan Mabry MD on 09/13/2024 20:37:21
--- OUTSIDE RECORDS SUMMARY | 2024-09-13 14:53 | XMS_ITS | Clinical Summary ---
Author Organization [facility] Address [address] [place] [address] Care Team Providers Care Paint Roller Cover Machine Setter Name Role Phone Karma Mace Primary Care Provider +1- [phone] Allergies Active Allergy Reactions Criticality Noted Date [...] age to complete this topic Care Teams Paint Roller Cover Machine Setter Relationship Specialty Start Date End Date Karma Mace [address] [address] [facility] [place] [phone] PCP - General Family Medicine 01/02/18
== END 2024-09-13 14:50 | disposition home or self-care (01) ==
LOC: HO.MRI 14:49
PROVIDERS: Visit Provider Physician Assistant
DX: M51.26 Other intervertebral disc displacement, lumbar region (principal)
CPT/HCPCS: 72148

== ENCOUNTER → 2024-09-13 15:28 | Outpatient (BNV) | payer MEDICARE, MEDICAID, SELFPAY | PROVIDERS: Visit Provider Student in an Organized Health Care Education/Training Program | DX: M25.78 Osteophyte, vertebrae (principal); M48.061 Spinal stenosis, lumbar region without neurogenic claudication | CPT/HCPCS: 72148 ==

== ENCOUNTER 2024-09-13 16:38 | Emergency (ER) | payer MEDICARE, MEDICAID, SELFPAY ==
--- OUTSIDE RECORDS SUMMARY | 2024-09-13 17:27 | XMS_ITS | Clinical Summary ---
Author Organization [facility] Address [address] [place] [address] Care Team Providers Care Benzene Worker Name Role Phone Karma Mace Primary Care Provider +1- [phone] Allergies Active Allergy Reactions Criticality Noted Date [...] age to complete this topic Care Teams Benzene Worker Relationship Specialty Start Date End Date Karma Mace [address] [address] [facility] [place] [phone] PCP - General Family Medicine 01/02/18
--- OUTSIDE RECORDS SUMMARY | 2024-09-13 17:27 | XMS_ITS | Data Portability ---
Author Organization [facility] Address [address] [facility] [address] [place] [address] Care Team Providers Care Plasma Center Technician Name Role Phone WILFREDO RUBIO Primary Care Provider Assessment Encounter Date Assessment Date Assessment LastModified [...] Time Impingement syndrome of right shoulder region 7381121545844 02 Active 2022 Jonathan Valentine MD [address] [facility], [place], [address], [place] [facility] [place], P 3 14:13:29 Pain of right shoulder joint 8319748222115 9100 Active 2022 SOULEYMANE BONILLA PA-C [address] [facility], [place], [address] [facility] [place], P 12:48:44 Problem Notes None recorded. Procedures Surgical History Date Name Laterality Status Provider Name and Address Organization Details Recorded Time Shoulder Surgery completed [facility] 11/02/2022 13:57:03 Knee arthroscopy/hurd rgery completed [facility] [place], P 11/02/2022 13:57:11 Carpal tunnel surgery completed [facility] [place], P 11/02/2022 13:57:18 delivery completed [facility], P 11/02/2022 13:57:26 Imaging Results Imaging Date [...] available 11/02/2022 2878 RxNorm Priyanka Inman null, [facility], P 13:55:46 1524 Product containin g penicilli n and antibioti c (product) medicatio n Not available Not available Not available 11/02/2022 07247 05 SNOMED Priyanka Inman null, [place] [facility] 13:55:52 1525 Ultram medicatio n Not available Not available Not available 11/02/2022 40392 6 RxNorm Priyanka Inman null, [facility] 13:56:01 Medications Name Sig Start [...] Updated DateTime 11/02/2022 149.86 cm 28.7 kg/m2 25685.[address] [facility] [place], 11/02/2022 13:56:47 Social History None recorded. Functional [...] Code Diagnosis Note 3584 MD PHIL Tovar [facility] [address] [facility] [address] [place] [address] 11/02/2022 13:51:59 11/02/2022 14:11:38 Impingement syndrome of right shoulder region 0016689294 21222 M75.41 6421 MD PHIL Pizarro [facility] [address] [facility] [address] [place] [address] 11/19/2022 11:16:13 11/19/2022 13:20:48 Pain of right shoulder joint 3051566477 0112728 M25.511 Health Concerns Section Related Observation LastModified by Organization Detai apollo LastModified Time None Recorded Concern Status LastModified by Organization Details LastModified Time None Recorded Advance Directives Directive None Recorded Payers Encounter Date Sequence Insurance Name Policy Number Policy Estes Covered Member ID Estes Member ID Guarantor Name 11/02/2022 2 [place] [facility] Napoles [id number] Rebecca Napoles 11/02/2022 1 MED[place]ARE [place] [facility] Rebecca Napoles [id number] Rebecca Napoles 11/19/2022 2 [place] [facility] Napoles [id number] Rebecca Napoles 11/19/2022 1 [place] [facility] Rebecca Napoles [id number] Rebecca Napoels Notes Date Note Type Note Provider Name [...] Jonathan Valentine MD [address], [place], [address], [place] [facility] [place], 11/02/2022 14:14:22 11/19/2022 text/html 47-year-old becky ojeda [...] SOULEYMANE BONILLA PA-C [address], [place], [address], [place] [facility] [place], P 11/19/2022 12:49:46 OBGyn Episode No OBEpisode recorded.
== END 2024-09-13 17:33 | disposition left against medical advice (07) ==
PROVIDERS: Emergency Provider Emergency Medicine; PCP Nurse Practitioner Family
DX: M54.50 Low back pain, unspecified (principal)

== ENCOUNTER 2024-09-27 14:26 | Outpatient (AMB) | payer MEDICARE, MEDICAID, SELFPAY ==
--- NOTE | 2024-09-27 14:37 | A.SPINEOV_ITS ---
Intake Visit Reasons: 1st post op Intake Note: Ms. Napoles is here today for her 1st post op. Strand And Binder Controller Required: No Allergies Penicillins Allergy (Severe, Verified 09/13/24 10:52) Hives tramadol [From Ultracet] Allergy (Severe, Verified 09/13/24 10:52) hives prednisone Allergy (Verified 09/13/24 10:52) Difficulty Breathing cortisone Allergy (Severe, Uncoded 09/09/24 14:02) hives Assessment & Plan Assessment & Plan (1) Lumbar disc herniation: Code(s): M51.26 - Other intervertebral disc displacement, lumbar region Category: Medical Plan Mrs Napoles is 3 weeks out from her lumbar microdiskectomy. For the most part of pain is gone. She is overall doing much better and happy she had the surgery. Her wound is healed up nicely. I gave her a note that she can return to driving. She can continue her handicap placard for few more months because she is still having some pain in her foot. It bothers her when she walks. I suspect this will go away and she will ultimately need it for very much longer. She can follow up with us on an as-needed basis Jono Munoz MD, PhD [facility] Coding Level of Care Code Global (93994) Diagnoses Lumbar disc herniation M51.26
--- OUTSIDE RECORDS SUMMARY | 2024-09-27 17:37 | XMS_ITS ---
Author Organization [facility] Address [address] [place] [address] [place] [address] Care Team Providers Care Director Trust Name Role Phone JENISEMarlinJACOB WILFREDO Primary Care Provider Unava jessica Keller Jr, Dre Roldan REASON FOR VISIT results of Encounters Encounter Location Date Provider Diagnosis [facility] [address] [place] [address] [place] [address] 11/21/2023 Dre Keller Jr PLAN OF TREATMENT Next Appt Details Provider Name:Dre arenas Jr, 10/24/2024 09:20:00 AM, [address] [place] [address], [address], [place], [address],
--- OUTSIDE RECORDS SUMMARY | 2024-09-27 17:37 | XMS_ITS | Data Portability ---
Author Organization [facility], [facility], [facility] Main Office Address [address] [place] [address] Care Team Providers Care Quality Director Name Role Phone WILFREDO HAYNES Primary Care Provider DALLASWILFREDO VALERO Referring Provider [phone] Assessment Encounter Date Assessment Date Assessment LastModified [...] al Depart ment of Radiol ogy [address] [place], [address] Name: Maggie JOHNSON : [id number] Date of Servic e: 1533 Acct Number : [id number] Order Number : [id number] Locati on: WORD Report Number : [id number] Servic e: REG REF/ Reques ting Physic yohannes: Elena matthews,Corky Villa MD Catego ry: ORTHOP EDIC RADIOL OGY SV Exam: WRIST 3 VIEW MINIMI M Left Access ion #: [id number] VH Signs/ Sympto ms: PAIN ASSESS [...] er, , Non Physic yohannes, , , [facility] ([facility]iology) [address] [place] [address], [address], 09/10/2021 10:57:15 10/23/19 21 10/22/2020 XR, hand, 3 or more view [facility] Hospit al Depart ment of Radiol ogy [address] [place] [address], [address] [phone] Name: Maggie JOHNSON : [id number] Date of Servic e: 1533 Acct Number : [id number] Order Number : [id number] Locati on: WORD Report Number : [id number] Servic e: REG REF/ Reques ting Physic yohannes: Elena matthews,Corky Villa MD Catego ry: ORTHOP EDIC RADIOL OGY SV Exam: HAND 3 VIEW MINIMU M Left Access ion #: [id number] VH Signs/ Sympto ms: PAIN ASSESS [...] er, , Non Physic yohannes, , , [facility] (Radiology) [address] [place] [address], [address], 09/10/2021 10:57:15 Result Notes None recorded. Problems Name Problem SNOMED Code Status Onset Date Resolution Date Notes Provider Name and Address Organization Details Recorded Time Hypertensive disorder 56789548 Active 2020 Jessica henderson [place] - [facility], [facility] 14:50:19 Anxiety 53263139 Active 2020 Jessica henderson [place] - [facility], [facility] 14:50:27 Hyperlipidemia 74943655 Active 2020 Jessica henderson [place] - [facility], [facility] 14:50:37 Problem Notes None recorded. Procedures Surgical History None recorded. Imaging Results Imaging Date Name Status LastModified by Organiz ation Details LastModified Time 10/22/2020 XR, wrist, 3 or more view completed [facility] (Radiology) [address] [place] [address], [address], 09/10/2021 10:57:15 10/22/2020 XR, hand, 3 or more view completed [facility] (Radiology) [address] [place], [address], 09/10/2021 10:57:15 Procedure Notes None recorded. Medical Equipment None Reported. Allergies Allergen ID Allergen Name Allergen Category Reaction Reaction Severity Criticality Documentation Date Start Date Code Code System Note Provider Name and Address Organization Details Recorded Time 55395 cortisone medicatio n Not available Not available Not available 10/22/2020 2878 RxNorm [place] - [facility], [facility] 14:46:46 96446 penicilli n V Not available Not available Not available Not available 10/22/2020 7984 RxNorm [place] - [facility], [facility] 14:46:55 61231 Ultracet medicatio n Not available Not available Not available 10/22/2020 47664 2 RxNorm [place] - [facility], [facility] 14:47:03 65273 Ultram medicatio n Not available Not available Not available 10/22/2020 58722 6 RxNorm [place] - [facility], [facility] 14:47:17 Medications Name Sig Start Date Stop [...] Updated DateTime 10/22/2020 149.86 cm 28.9 kg/m2 50957.71 g Jessica Cavanaugh [facility], [facility] 10/22/2020 14:46:27 Social History None recorded. Functional Status None recorded. Mental Status None recorded. Family History Nothing Reported. Medical History No medical history recorded. Gynecological HistoryNo gynecological history recorded. Obstetrics History GPAL:G 0 P 0 0 0 0 Past Encounters Encounter ID Performer Location Encounter Start Date Encounter Closed Date Diagnosis/Indication Diagnosis SNOMED-CT Code Diagnosis ICD10 Code Diagnosis Note [id number] Ananth Arana MD S Main Office [address] [place] [address],[address] [place] [address] 10/22/2020 14:38:17 10/23/2020 10:42:43 Pain of left hand 6928929571 97630 M79.642 Health Concerns Section Related Observation LastModified by Organization Detai ls LastModified Time None Recorded Concern Status LastModified by Organization Details LastModified Time None Recorded Advance Directives Directive None Recorded Payers Encounter Date Sequence Insurance Name Policy Number Policy Estes Covered Member ID Estes Member ID Guarantor Name 10/22/2020 1 [place] B-[place]: [employer] Rebecca Rossy Dony [id number] Rebecca Johnson 10/22/2020 2 [place] [facility] Rebecca Rossy Dony [id number] Rebecca Johnson Notes Date Note Type Note [...] as well as discomfort. Ananth Arana MD [address] [place] [address],[address], [place], [address], [facility] - [facility], [facility] 10/22/2020 15:35:04 OBGyn Episode No OBEpisode recorded.
--- OUTSIDE RECORDS SUMMARY | 2024-09-27 17:37 | XMS_ITS ---
Author Organization [facility] Address [address] [place] [address] Care Team Providers Care Graphic User Interface Designer Name Role Phone JENISEMarlinJACOBWILFREDO Primary Care Provider [...] unspecified whether esophagitis present (K21.9) Active confirmed 876012882 VITAL SIGNS Temperature 97.3 degrees Fahrenheit 10/26/19 24 Blood pressure systolic 000 mm Hg 10/26/19 24 Blood pressure diastolic 00 mm Hg 024 Height 60 in 10/26/2023 Weight 148 lbs 10/26/2023 BMI 28.90 kg/m2 10/26/2023 Encounters Encounter Location Date Provider Diagnosis [facility] [address] [place] [address] 10/26/2023 Dre Keller Jr Epigastric pain R10.13 [...] Name:Dre arenas Jr, 10/24/2024 09:20:00 AM, [address], [address], [place], [address],
--- OUTSIDE RECORDS SUMMARY | 2024-09-27 17:37 | XMS_ITS | Data Portability ---
Author Organization [facility] Kosta Thomas [facility] [place] Address [address] [facility] [address] [place] [address] Care Team Providers Care Major Assembler Name Role Phone WILFREDO RUBIO Primary Care [...] Time Impingement syndrome of right shoulder region 1802810182741 02 Active 2022 Jonathan Valentine MD [address] [facility], [place], [address], [place] [facility], P 3 14:13:29 Pain of right shoulder joint 9074493922032 9100 Active 2022 SOULEYMANE BONILLA PA-C [address], [place], [address] [facility], P 12:48:44 Problem Notes None recorded. Procedures Surgical History Date Name Laterality Status Provider Name and Address Organization Details Recorded Time Shoulder Surgery completed [facility] 11/02/2022 13:57:03 Knee arthroscopy/hurd rgery completed [facility], P 11/02/2022 13:57:11 Carpal tunnel surgery completed [facility], P 11/02/2022 13:57:18 delivery completed [facility], P 11/02/2022 13:57:26 Imaging Results Imaging [...] available 11/02/2022 2878 RxNorm Priyanka Inman null, [facility], P 13:55:46 1524 Product containin g penicilli n (product) medicatio n Not available Not available Not available 11/02/2022 69752 8001 SNOMED Priyanka Inman null, [facility], P 13:55:52 1525 Ultram medicatio n Not available Not available Not available 11/02/2022 55351 6 RxNorm Priyanka Inman null, [facility], [facility] 13:56:01 Medications Name Sig Start [...] Updated DateTime 11/02/2022 149.86 cm 28.7 kg/m2 [address]3510.[address] [facility] [place], 11/02/2022 13:56:47 Social History None recorded. Functional [...] Code Diagnosis Note [id number] MD PHIL Tovar [address] [place] [address] 11/02/2022 13:51:59 11/02/2022 14:11:38 Impingement syndrome of right shoulder region 1837806559 81622 M75.41 [id number] MD PHIL Pizarro [address] [place] [address] 11/19/2022 11:16:13 11/19/2022 13:20:48 Pain of right shoulder joint 2418569826 0455183 M25.511 Health Concerns Section Related Observation LastModified by Organization Detai ls LastModified Time None Recorded Concern Status LastModified by Organization Details LastModified Time None Recorded Advance Directives Directive None Recorded Payers Encounter Date Sequence Insurance Name Policy Number Policy Estes Covered Member ID Estes Member ID Guarantor Name 11/02/2022 2 [place]RIKA Napoles [id number] Rebecca Napoles 11/02/2022 1 MED[place]ARE B-[place]: [facility] Rebecca Napoles [id number] Rebecca Napoles 11/19/2022 2 [place] Rebecca Napoles [id number] Rebecca Napoles 11/19/2022 1 MEDICARE B-[place]: [facility] Rebecca Napoles [id number] Rebecca Napoles Notes Date Note Type Note [...] above shoulder height. Jonathan Valentine MD [address] [facility], [place], [address], [place] [facility], P 11/02/2022 14:14:22 11/19/2022 text/html 47-year-old becky ojeda [...] SOULEYMANE BONILLA PA-C [address], [place], [address], [place] [facility], P 11/19/2022 12:49:46 OBGyn Episode No OBEpisode recorded.
--- OUTSIDE RECORDS SUMMARY | 2024-09-27 17:37 | XMS_ITS | Clinical Summary ---
Author Organization [facility] Address [address] [place] [address] Care Team Providers Care Food And Beverage Outlets Manager Name Role Phone Karma Mace Primary Care Provider +1- [phone] Allergies Active Allergy Reactions Criticality Noted Date [...] age to complete this topic Care Teams Food And Beverage Outlets Manager Relationship Specialty Start Date End Date Karma Mace [address] [address] [facility] [place] [phone] PCP - General Family Medicine 01/02/18
--- OUTSIDE RECORDS SUMMARY | 2024-09-27 17:37 | XMS_ITS | Patient Health Record ---
Author Organization [facility] Address [address] [place] [address] Care Team Providers Care Field Handyman Name Role Phone JENISEMarlinJACOB WILFREDO Primary Care Provider Dre Ceja Jr Unavailable [phone] ALLERGIES Allergen (clinical drug ingredient) Drug/Non Drug Allergy documented on EMR Reaction Allergy Type Onset Date Status seasonal allergies (uncoded) Unknown Allergy Active RESULTS Component Value Reference Range Notes NM gastric emptying study Reviewed date:11/23/2023 08:29:57 AM Interpretation: Performing Lab: Notes/Report: [address] [address] Nuclear Medicine Report Signed Patient: Dimtri Johnson MR#: [id number] : 1975 Acct:[id number] Age/Sex: 48 / F ADM Date: 11/15/23 Loc: [facility] Attending Dr: Dre Keller MD Ordering Physician: Dre Keller MD Date of Service: 11/15/23 Procedure(s): NM gastric emptying study Accession Number(s): [id number] cc: Dre Keller MD EXAMINATION: RADIONUCLIDE SOLID [...] in OV> 11/15/23 1530 DD/ 1255 TD/TT: [employer]: RR REASON FOR REFERRAL No Information MEDICATIONS [...] W/U Status Risk SNOMED Code Notes Problem Epigastric pain (R10.13) Active confirmed 81891877 Problem Irritable bowel syndrome with diarrhea (K58.0) Active confirmed 098065000 Problem Upper abdominal pain (R10.10) Active confirmed 24006155 Problem Gastroesophageal reflux disease, unspecified whether esophagitis present (K21.9) Active confirmed 995324417 VITAL SIGNS Temperature 97.3 degrees Fahrenheit 10/26/2023 Blood pressure diastolic 00 mm Hg 10/26/2023 Height 60 in 10/26/2023 Blood pressure systolic 000 mm Hg 10/26/2023 Weight 148 lbs 10/26/2023 BMI 28.90 kg/m2 10/26/2023 Encounters Encounter Location Date Provider Diagnosis [facility] [address] [place] [address] 10/26/2023 Dre Keller Jr Epigastric pain R10.13 ; Irritable bowel syndrome with diarrhea K58.0 ; Upper abdominal pain R10.10 and Gastroesophageal reflux disease, unspecified whether esophagitis present K21.9 [facility] [address] [place] [address] 11/21/2023 Dre Keller Jr ASSESSMENTS Encounter Date [...] Franco arenas Jr, 10/24/2024 09:20:00 AM, [address], [address], [place], [address], Insurance Providers Payer Name Payer Address Payer Phone Subscriber Number Group Number Insured Name Patient Relationship to Insured Coverage Start Date Coverage End Date MEDICARE OF [place] [address] [place] [address] [id number] DMITRI JOHNSON Self - patient is the insured MEDICAID OF [facility] [employer] Surgical [address] [place] [address] [phone] [id number] DMITRI JOHNSON Self - patient is the [...]
== END 2024-09-27 15:23 | disposition home or self-care (01) ==
PROVIDERS: Visit Provider Physician Assistant
DX: M51.26 Other intervertebral disc displacement, lumbar region (principal)
CPT/HCPCS: 99024

== ENCOUNTER → 2024-09-27 14:26 | Outpatient (BNVA) | payer MEDICARE, MEDICAID, SELFPAY | PROVIDERS: Visit Provider Physician Assistant | DX: Z47.89 Encounter for other orthopedic aftercare (principal); M51.26 Other intervertebral disc displacement, lumbar region; Z98.890 Other specified postprocedural states | CPT/HCPCS: 99212 ==

== ENCOUNTER 2024-11-01 11:44 | Outpatient (AMB) | payer MEDICARE, MEDICAID, SELFPAY ==
--- OUTSIDE RECORDS SUMMARY | 2024-10-29 13:43 | XMS_ITS | Data Portability ---
Author Organization [facility], [facility] Main Office Address [address] [place] [address] Care Team Providers Care Manager Medicare Name Role Phone WILFREDO HAYNES Primary Care Provider [phone] DALLASWILFREDO VALERO Referring Provider [phone] Assessment Encounter Date Assessment Date Assessment LastModified [...] al Depart ment of Radiol ogy [address] [place], [address] [phone] Name: Maggie JOHNSON : [id number] Date of Servic e: 1533 Acct Number : [id number] Order Number : [id number] Locati on: WORD Report Number : [id number] Servic e: REG REF/ Reques ting Physic yohannes: Elena matthews,Corky Villa MD Catego ry: ORTHOP EDIC RADIOL OGY SV Exam: WRIST 3 VIEW MINIMI M Left Access ion #: [id number] VH Signs/ Sympto ms: PAIN ASSESS [...] er, Krystin Parker er, , Non Physic yohnanes, , , [facility] ([facility] [address] [place] [address], [address], 09/10/2021 10:57:15 10/23/19 21 10/22/2020 XR, hand, 3 or more view [facility] Hospit al Depart ment of Radiol ogy [address] [place] [address], [phone] Name: Maggie JOHNSON : [id number] Date of Servic e: 1533 Acct Number : [id number] Order Number : [id number] Locati on: WORD Report Number : [id number] Servic e: REG REF/ Reques ting Physic yohannes: Elena matthews,Corky Villa MD Catego ry: ORTHOP EDIC RADIOL OGY SV Exam: HAND 3 VIEW MINIMU M Left Access ion #: [id number] VH Signs/ Sympto ms: PAIN ASSESS [...] er, , Non Physic yohannes, , , [facility] (Radiology) [address] [place] [address], [address], 09/10/2021 10:57:15 Result Notes None recorded. Problems Name Problem SNOMED Code Status Onset Date Resolution Date Notes Provider Name and Address Organization Details Recorded Time Hypertensive disorder 29085924 Active 2020 Jessica henderson [place] - [facility], [facility] 14:50:19 Anxiety 93961752 Active 2020 Jessica henderson [place] - [facility], [facility] 14:50:27 Hyperlipidemia 15335733 Active 2020 Jessica henderson [place] - [facility], [facility] 14:50:37 Problem Notes None recorded. Procedures Surgical History None recorded. Imaging Results Imaging Date Name Status LastModified by Organiz ation Details LastModified Time 10/22/2020 XR, wrist, 3 or more view completed [facility] (Radiology) [address] [place] [address], [address], 09/10/2021 10:57:15 10/22/2020 XR, hand, 3 or more view completed [facility] (Radiology) [address] [place], [address], 09/10/2021 10:57:15 Procedure Notes None recorded. Medical Equipment None Reported. Allergies Allergen ID Allergen Name Allergen Category Reaction Reaction Severity Criticality Documentation Date Start Date Code Code System Note Provider Name and Address Organization Details Recorded Time 37636 cortisone medicatio n Not available Not available Not available 10/22/2020 2878 RxNorm Jessica henderson, [place] - [facility], [facility] 14:46:46 59222 penicilli n V Not available Not available Not available Not available 10/22/2020 7984 RxNorm Jessica henderson, [place] - [facility], [facility] 14:46:55 58552 Ultracet medicatio n Not available Not available Not available 10/22/2020 74827 2 RxNorm Jessica henderson, [place] - [facility], [facility] 14:47:03 54395 Ultram medicatio n Not available Not available Not available 10/22/2020 87606 6 RxNorm Jessica henderson, [place] - [facility], [facility] 14:47:17 Medications Name Sig Start Date Stop [...] Updated DateTime 10/22/2020 149.86 cm 28.9 kg/m2 61941.71 g Jessica Cavanaugh [facility], [facility] 10/22/2020 14:46:27 Social History None recorded. Functional Status None recorded. Mental Status None recorded. Family History Nothing Reported. Medical History No medical history recorded. Gynecological HistoryNo gynecological history recorded. Obstetrics History GPAL:G 0 P 0 0 0 0 Past Encounters Encounter ID Performer Location Encounter Start Date Encounter Closed Date Diagnosis/Indication Diagnosis SNOMED-CT Code Diagnosis ICD10 Code Diagnosis Note [id number] Ananth Arana MD S Main Office [address] [place] [address],[address] [place] [address] 10/22/2020 14:38:17 10/23/2020 10:42:43 Pain of left hand 9604507399 83830 M79.642 Health Concerns Section Related Observation LastModified by Organization Detai ls LastModified Time None Recorded Concern Status LastModified by Organization Details LastModified Time None Recorded Advance Directives Directive None Recorded Payers Encounter Date Sequence Insurance Name Policy Number Policy Estes Covered Member ID Estes Member ID Guarantor Name 10/22/2020 1 [place] [employer] Rebecca Rossy Dony [id number] Rebecca Johnson 10/22/2020 2 [place] [facility] Rebecca Rossy Dony [id number] Rebecca Johnson Notes Date Note Type Note [...] as well as discomfort. Ananth Arana MD [address] [place] [address],[address], [place], [address], [facility] - [facility], [facility] 10/22/2020 15:35:04 OBGyn Episode No OBEpisode recorded.
--- OUTSIDE RECORDS SUMMARY | 2024-10-29 13:43 | XMS_ITS | Data Portability ---
Author Organization [facility] Kosta Thomas [facility] [place] Address [address] [facility] [address] [place] [address] Care Team Providers Care Engineer Soils Name Role Phone WILFREDO RUBIO Primary Care [...] Time Impingement syndrome of right shoulder region 6209582238915 02 Active 2022 Jonathan Valentine MD [address] [facility],[address], [place], [address], [place] [facility], P 3 14:13:29 Pain of right shoulder joint 4341353700938 9100 Active 2022 SOULEYMANE BONILLA PA-C [address], [place], [address] [facility] [place], P 12:48:44 Problem Notes None recorded. Procedures Surgical History Date Name Laterality Status Provider Name and Address Organization Details Recorded Time Shoulder Surgery completed [facility] 11/02/2022 13:57:03 Knee arthroscopy/hurd rgery completed [facility] [place], P 11/02/2022 13:57:11 Carpal tunnel surgery completed [facility] [place], P 11/02/2022 13:57:18 delivery completed [facility], P 11/02/2022 13:57:26 Imaging Results Imaging [...] available 11/02/2022 2878 RxNorm Priyanka Inman null, [facility], P 13:55:46 1524 Product containin g penicilli n (product) medicatio n Not available Not available Not available 11/02/2022 13354 8001 SNOMED Priyanka Inman null, [facility], P 13:55:52 1525 Ultram medicatio n Not available Not available Not available 11/02/2022 91082 6 RxNorm Priyanka Inman null, [facility], P 13:56:01 Medications Name Sig Start [...] Updated DateTime 11/02/2022 149.86 cm 28.7 kg/m2 [address].[address] [facility] [place], 11/02/2022 13:56:47 Social History None recorded. Functional [...] Code Diagnosis Note [id number] MD PHIL Tovar [address] [place] [address] 11/02/2022 13:51:59 11/02/2022 14:11:38 Impingement syndrome of right shoulder region 4533351190 13855 M75.41 6421 MD PHIL Pizarro [address] [place] [address] 11/19/2022 11:16:13 11/19/2022 13:20:48 Pain of right shoulder joint 9171491567 3137792 M25.511 Health Concerns Section Related Observation LastModified by Organization Detai ls LastModified Time None Recorded Concern Status LastModified by Organization Details LastModified Time None Recorded Advance Directives Directive None Recorded Payers Encounter Date Sequence Insurance Name Policy Number Policy Estes Covered Member ID Estes Member ID Guarantor Name 11/02/2022 2 [place] Napoles [id number] Rebecca Napoles 11/02/2022 1 MEDICARE B-[place]: [facility] Rebecca Napoles [id number] Rebecca Napoles 11/19/2022 2 [place] Rebecca Napoles [id number] Rebecca Napoles 11/19/2022 1 MEDICARE B-[place]: [facility] Rebecca Napoles [id number] Rebecca Napoles Notes Date Note Type Note [...] above shoulder height. Jonathan Valentine MD [address] [facility],[address], [place], [address], [place] [facility], P 11/02/2022 14:14:22 11/19/2022 text/html 47-year-old becky [...] SOULEYMANE BONILLA PA-C [address], [place], [address], [place] [facility], P 11/19/2022 12:49:46 OBGyn Episode No OBEpisode recorded.
--- OUTSIDE RECORDS SUMMARY | 2024-10-29 13:44 | XMS_ITS | Clinical Summary ---
Author Organization [facility] Address [address] [place] [address] Care Team Providers Care Training Facilitator Name Role Phone Karma Mace Primary Care Provider +1- [phone] Allergies Active Allergy Reactions Criticality Noted Date [...] age to complete this topic Care Teams Training Facilitator Relationship Specialty Start Date End Date Karma Mace [address] [address] [facility] [place] [phone] PCP - General Family Medicine 01/02/18
--- OUTSIDE RECORDS SUMMARY | 2024-10-29 13:44 | XMS_ITS ---
Author Organization [facility] Address [address] [place] [address] [place] [address] Care Team Providers Care Commercial Manager Name Role Phone JENISEMarlinJACOBWILFREDO Primary Care Provider Unava jessica Keller Jr, Dre Roldan REASON FOR VISIT results of Encounters Encounter Location Date Provider Diagnosis [facility] [address] [place] [address] [place] [address] 11/21/2023 Dre Keller Jr Plan Of Treatment Next Appt Details Provider Name:Dre arenas Jr, 10/28/2025 10:50:00 AM, [address] [place] [address], [address], [place], [address], Progress Notes * DMITRI JOHNSON LDOB:1975 ( 48 yo F)Acc No.[id number]:11/21/2023 Patient:?DMITRI JOHNSON :1975???Age:48 Y???Sex:Female Address:[address] [place], [address] * true * Date:? Generated for Printi ng/Falalithag/eTransmitting on:?10/29/2024 01:43 PM EDT
--- OUTSIDE RECORDS SUMMARY | 2024-10-29 13:44 | XMS_ITS | Patient Health Record ---
Author Organization [facility] Address [address] [place] [address] Care Team Providers Care Dining Room Coordinator Name Role Phone JENISEMarlinJACOB WILFREDO Primary Care Provider Dre Ceja Jr Unavailable [phone] Allergies Allergen (clinical drug ingredient) Drug/Non Drug Allergy documented on EMR Reaction Allergy Type Onset Date Status seasonal allergies (uncoded) Unknown Allergy Active Results Component Value Reference Range Notes NM gastric emptying study Reviewed date:11/23/2023 08:29:57 AM Interpretation: Performing Lab: Notes/Report: [address] [address] Nuclear Medicine Report Signed Patient: Dmitri Johnson MR#: [id number] : 1975 Acct:[id number] Age/Sex: 48 / F ADM Date: 11/15/23 Loc: [facility] Attending Dr: Dre Keller MD Ordering Physician: Dre Keller MD Date of Service: 11/15/23 Procedure(s): NM gastric emptying study Accession Number(s): [id number] cc: Dre Keller MD EXAMINATION: RADIONUCLIDE SOLID [...] in OV> 11/15/23 1530 DD/ 1255 TD/TT: Matcher Operator: [place] [address] Nuclear Medicine Report Signed Patient: Dmitri Johnson MR#: [id number] : 1975 Acct:[id number] Age/Sex: 48 / F ADM Date: 11/15/23 Loc: [facility] Attending Dr: Kita Keller MD Ordering Physician: Dre Keller MD Date of Service: 11/15/23 Procedure(s): NM gas tric emptying study Accession Number(s): [id number] cc: Dre Keller MD EXAMINATION: RADIONUCLIDE SOLID F OOD GASTRIC EMPTYING 4-HOUR STUDY CLINICAL INFORMATION: Epigastric pain. COMPARISON: No previous gastric emptying study is available for comparison. TECHNIQUE: A standard meal cons isting of 4 oz of Egg Beaters brand equivalent tagged with 1.0 mCi Tc-99m Sulfur Colloid, 8 oz water and 2 slices of toast with jelly was administered orally to the patient. Images were obtained using a jessica l head gamma camera in the anterior and posterior projections over of the stomach immediately post ingestion and at hourly intervals up to 4 hours post ingestion. The anterior and posterior counts at each time interval were averaged using the geometric mean and e xpressed as percentage of the immediate post ingestion counts. FINDINGS: There is good visual ization of activity in the stomach immediately post ingestion. As the st udy progresses, there is good clearance of activity from the stomach and visualization of progressively increasing small bowel activity. By t he end of the study, there is almost no retention noted in the stomach. Retention in the sto mach at each time interval was: 1 hour 60% (normal 37%-90%) 2 hours 31% (normal 30%-60%) 3 hours 16% 4 hours 9% (normal 0%-10%) N M/NM gastric emptying study IMPRESSION: Normal 4-hour solid food gastric emptying study. Gastric emptying zachary dy grading per JNMT Consensus Recommendations in 2008: https://tech.snmjournals.org/co ntent/36/44 Grade 1 (mild retent ion): 11-20% at 4 hours Grade 2 (moderate re tention): 21-35% at 4 hours Grade 3 (severe rete ntion): 36-50% at 4 hours Grade 4 (very severe retention): >50% retention at 4 hours Dictated By: Ramana Florian MD Signed By: Jono fuentes signed by Ramana Barreto MD in OV> 11/15/23 1530 DD/ 1255 TD/TT: Matcher Operator: RR Reason For Referral No Information Medications Medication SIG (Take, Route, Frequency, Duration) Notes Start Date End Date Status Vitamin B 12 100 MCG as directed Orally Active Vitamin D 50 MCG (1999) 1 capsule Ora lly Once a day for 30 day(s) Active Meclizine HCl 12.5 MG Oral for 10 Active SUMAtriptan Succinate 100 MG TAKE 1 TABLET BY MOUTH EVERY DAY NEEDED FOR MIGRAINE HEADACHE Oral for 30 Active Dicyclomine HCl 10 MG TAKE 1 CAPSULE BY MOUTH 2-4 TIMES PER DAY for 90 Active Pantoprazole Sodium 40 MG TAKE 1 TABLET BY MOUTH EVERY DAY FOR 30 DAYS for 90 Active Immunizations Vaccine Route Administration Date Status Comme nts Influenza Unknown 04/21/2022 Refused Influenza Unknown 10/26/2023 Refused Social History Tobacco Use: Social History Observation Description Date Details (start date - stop date) Current Smoker NA - NA Tobacco Use/Smoking Question Answer Notes Patient is a current smoker Alcohol Screen Question Answer Notes Did you have a drink containing alcohol in the p ast year? No Points 0 Interpretation Negative Problems Problem Type SNOMED Code ICD Code Onset Dates Problem Status W/U Status Risk Notes Problem 72800816 Epigastric pain (R10.13) Active confirmed Problem 690190446 Irritable bowel syndrome with diarrhea (K58.0) Active confirmed Problem 84296575 Upper abdominal pain (R10.10) Active confirmed Problem 914891004 Gastroesophageal reflux disease, unspecified whether esophagitis present (K21.9) Active confirmed Vital Signs Temperature 96.9 degrees Fahrenheit 10/24/2024 Blood pressure diastolic 01 mm Hg 10/24/2024 Height 60 in 10/24/2024 Blood pressure systolic 001 mm Hg 10/24/2024 Weight 140.4 lbs 10/24/2024 BMI 27.42 kg/m2 10/24/2024 Encounters Encounter Location Date Provider Diagnosis [facility] [address] [place] [address] 10/24/2024 Dre Keller Jr [facility] [address] [place] [address] 11/21/2023 Dre Keller Jr [facility] [address] [place] [address] 10/22/2024 Dre Keller Jr Plan Of Treatment Pending Test Test Name Order Date BUN 12/29/2022 CREATININE 12/29/2022 LIVER PROFILE 12/29/2022 LIPASE 12/29/2022 CBC w/o DIFF 12/29/2022 H PYLORI AG, STOOL 09/09/2022 XR GI SMALL BOWEL SERIES 04/21/2022 US ABD 12/29/2022 NM gastric emptying study 10/26/2023 Next Appt Details Provider Name:Dre arenas Jr, 10/28/2025 10:50:00 AM, [address], [address], [place], [address], Insurance Providers Payer Name Payer Address Payer Phone Subscriber Number Group Number Insured Name Patient Relationship to Insured Coverage Start Date Coverage End Date MEDICARE OF [place] [address] [place] [phone] [id number] DMITRI JOHNSON Self - patient is the insured MEDICAID OF [facility] [address] [place] [address] [id number] DMITRI JOHNSON Self - patient is the insured Medical (General) History Medical History History ICD Code Fibromyalgia Vertigo Gastroesophageal reflux disease EGD 04/20 , no H. pylori. Back pain Vitamin D deficiency Anxiety/depression H. pylori infection the past Hyperlipidemia Elevated blood sugar Colonoscopy 04/20, normal, ten-year follo wup back surgery decompression spine Surgical History Surgery Date(Month/Year) back surgery Shoulder and foot surgery Carpal tunnel surgery partial hysterectomy knee surgery 2001
--- OUTSIDE RECORDS SUMMARY | 2024-10-29 13:44 | XMS_ITS ---
Author Organization [facility] Address [address] [place] [address] Care Team Providers Care Senior Technical Support Engineer Name Role Phone JENISEBIJALCHEKOWILFREDO Primary Care Provider Dre Ceja Jr Unavailable Allergies Allergen (clinical drug ingredient) Drug/Non Drug Allergy documented on EMR Reaction Allergy Type Onset Date Status seasonal allergies (uncoded) Unknown Allergy Active REASON FOR VISIT Patient presents today for IBS Medications Medication SIG (Take, Route, Frequency, Duration) Notes Start Date End Date Status Vitamin D 50 MCG (1999) 1 capsule [...] DAY FOR 30 DAYS for 90 Active Vitamin B 12 100 MCG as directed Orally Active Social History Tobacco Use: Social History Observation Description Date Details (start date - stop date) Current Smoker NA - NA Tobacco Use/Smoking Question Answer Notes Patient is a current smoker Alcohol Screen Question Answer Notes Did you have a drink containing alcohol in the p ast year? No Points 0 Interpretation Negative Vital Signs Temperature 96.9 degrees Fahrenheit 10/25/19 25 Blood pressure systolic 001 mm Hg 10/25/19 25 Blood pressure diastolic 01 mm Hg 025 Height 60 in 10/24/2024 Weight 140.4 lbs 10/24/2024 BMI 27.42 kg/m2 10/24/2024 Encounters Encounter Location Date Provider Diagnosis [facility] [address] [place] [address] 10/24/2024 Dre Keller Jr Plan Of Treatment Next Appt Details Provider Name:Dre arenas Jr, 10/28/2025 10:50:00 AM, [address], [address], [place], [address], Progress Notes * DMITRI JOHNSON LDOB:1975 ( 49 yo F)Acc No.[id number]:10/24/2024 Progress Notes Patient:?DMITRI JOHNSON Rossy Provider:?Dre Keller MD :1975???Age:49 Y???Sex:Female D ate:10/24/2024 Address:[place] [address] [place] [address] Pcp:WILFREDO RUBIO Subjective: * Chief Complaints: * ???1. Patient presents today for IBS. * Medical History:?Fibromyalgi a, Vertigo, Gastroesophageal reflux disease EGD 04/20, no H. pylori., Back pain, Vitamin D deficiency, Anxiety/depression, H. pylori infection the past, Hyperlipidemia, Elevated blood sugar, Colonoscopy 04/20, normal, ten- year followup, Back surgery decompression spine. * Surgical History:?knee surge ry 2001, partial hysterectomy , Carpal tunnel surgery , Shoulder and foot surgery , back surgery . * Family History:?Father: unkn own.?Mother: unknown.? Patient doesn't have any family history. * Social History:?Tobacco Use:?Tobacco Use/Smoking?Patient is a?current smoker.?Drugs/Alcohol:?Alcohol Screen?Did you have a drink containing alcohol in the past year??No,?Points?0,?Interpretation?Negative.?Miscellaneous:?Marital status: single. * Medications:?Taking Vitamin B 12 100 MCG Lozenge as directed Orally , Taking Vitamin D 50 MCG (2000 UT) Capsule 1 capsule Orally Once a day , Taking Meclizine HCl 12.5 MG Tablet Oral , Taking SUMAtriptan Succinate 100 MG Tablet TAKE 1 TABLET BY MOUTH EVERY DAY NEEDED FOR MIGRAINE HEADACHE Oral , Taking Dicyclomine HCl 10 MG Capsule TAKE 1 CAPSULE BY MOUTH 2-4 TIMES PER DAY , Taking Pantoprazole Sodium 40 MG Tablet Delayed Release TAKE 1 TABLET BY MOUTH EVERY DAY FOR 30 DAYS , Medication List reviewed and reconciled with the patient * Allergies:?Seasonal Allergie s. Objective: * Vitals:?Wt: 140.4 lbs, Ht: 6 0 in, BMI:27.42Index, BP: 001/01 mm Hg, Temp: 96.9, Wt-k.69. Assessment: Plan: * Treatment: * Preventive Medicine:? ??Counseling:?Care goal follow-up plan:?Above Normal BMI Follow-up?Dietary management education, guidance, and counseling,?BMI management provided?Yes.?Smoking Patient counseled on the dangers of tobacco use and urged to quit.?10/24/2024,?Relapse prevention:?Discussed the importance of a supportive environment and helped identify them..? * * The named appointment provid er may or may not be the originator of this progress note, and it is not deemed complete until electronically signed by the appointment provider. Sign off status: Pending * Provider:?Dre Keller MD Date:?0 10/24/2024 Generated for Eloy smiley/Valerie/Ar on:?10/29/2024 01:44 PM EDT
--- OUTSIDE RECORDS SUMMARY | 2024-10-29 13:44 | XMS_ITS ---
Author Organization [facility] Address [address] [place] [address] [place] [address] Care Team Providers Care Firewall Engineer Name Role Phone JENISEMarlinJACOBWILFREDO Primary Care Provider Unava jessica Keller Jr, Dre Roldan [phone] REASON FOR VISIT anti nausea meds Encounters Encounter Location Date Provider Diagnosis [facility] [address] [place] [address] [place] [address] 10/22/2024 Dre Keller Jr Plan Of Treatment Next Appt Details Provider Name:Dre arenas Jr, 10/28/2025 10:50:00 AM, [address] [place] [address], [address], [place], [address], Progress Notes * DMITRI JOHNSON LDOB:1975 ( 49 yo F)Acc No.[id number]:10/22/2024 Patient:?DMITRI JOHNSON :1975???Age:49 Y???Sex:Female Address:[address] [place], [address] * true * Date:? Generated for Printi ng/Falalithag/eTransmitting on:?10/29/2024 01:44 PM EDT
--- OUTSIDE RECORDS SUMMARY | 2024-10-29 13:44 | XMS_ITS ---
Author Name [facility] Organization Unknown Encounters Encounter Type Encounter Reason Primary Diagnosis Location Date Ambulatory [facility] 03/09/2023 Ambulatory [facility] 03/09/2023 Ambulatory [facility] 02/28/2023 Ambulatory [facility] 11/03/2022 Care Team Organization Name Specialty Phone Email Start Date End Da te [facility] WILFREDO RUBIO Primary Care 07/01/2022 03/19/2024
--- NOTE | 2024-11-01 11:45 | A.SPINEOV_ITS ---
Intake Visit Reasons: go over paper work Intake Note: Ms. Napoles is here today to discuss [facility] paperwork. Vice President Payment Required: No Allergies Penicillins Allergy (Severe, Verified 09/13/24 10:52) Hives tramadol [From Ultracet] Allergy (Severe, Verified 09/13/24 10:52) hives prednisone Allergy (Verified 09/13/24 10:52) Difficulty Breathing cortisone Allergy (Severe, Uncoded 09/09/24 14:02) hives Assessment & Plan Assessment & Plan (1) Lumbar disc herniation: Code(s): M51.26 - Other intervertebral disc displacement, lumbar region Category: Medical Plan Mrs Napoles came back in today to review some paperwork that I would sign for her a few weeks back. She was asking for handicap placard while she is healing up from her surgery. I fill the paperwork out appropriately, filled in the spots that were missing. I gave her up to a year. At this point she has no specific restrictions and come back and see us on an as-needed basis. Jono Munoz MD, PhD [facility] Coding Level of Care Code Global (02073) Diagnoses Lumbar disc herniation M51.26
--- OUTSIDE RECORDS SUMMARY | 2024-11-01 13:06 | XMS_ITS | Clinical Summary ---
Author Organization [facility] Address [address] [place] [address] Care Team Providers Care Chemistry Research Assistant Name Role Phone Karma Mace Primary Care Provider [phone] Allergies Active Allergy Reactions Criticality Noted Date [...] age to complete this topic Care Teams Chemistry Research Assistant Relationship Specialty Start Date End Date Karma Mace [address] [address] [facility] [place] [phone] PCP - General Family Medicine 01/02/18
--- OUTSIDE RECORDS SUMMARY | 2024-11-01 13:06 | XMS_ITS ---
Author Organization [facility] Address [address] [place] [address] [place] [address] Care Team Providers Care Prototype Fabricator Name Role Phone JENISEMarlinJACOBWILFREDO Primary Care Provider Unava jessica Keller Jr, Dre Roldan REASON FOR VISIT results of Encounters Encounter Location Date Provider Diagnosis [facility] [address] [place] [address] [place] [address] 11/21/2023 Dre Keller Jr Plan Of Treatment Next Appt Details Provider Name:Dre arenas Jr, 10/28/2025 10:50:00 AM, [address] [place] [address], [address], [place], [address], Progress Notes * DMITRI JOHNSON LDOB:1975 ( 48 yo F)Acc No.[id number]:11/21/2023 Patient:?DMITRI JOHNSON :1975???Age:48 Y???Sex:Female Address:[address] [place], [address] * true * Date:? Generated for Printi ng/Falalithag/eTransmitting on:?11/01/2024 01:05 PM EDT
--- OUTSIDE RECORDS SUMMARY | 2024-11-01 13:06 | XMS_ITS | Data Portability ---
Author Organization [facility] [place], [facility], [facility] Main Office Address [address] [place] [address] Care Team Providers Care Independent Video Producer Name Role Phone WILFREDO HAYNES Primary Care Provider [phone] DALLASWILFREDO VALERO Referring Provider [phone] Assessment Encounter Date Assessment Date Assessment LastModified [...] al Depart ment of Radiol ogy [address] [place], [address] Name: Maggie JOHNSON : [id number] Date of Servic e: 1533 Acct Number : [id number] Order Number : [id number] Locati on: [facility] Report Number : [id number] Servic e: REG REF/ Reques ting Physic yohannes: Elena matthews,Corky Villa MD Catego ry: ORTHOP EDIC RADIOL OGY SV Exam: WRIST 3 VIEW MINIMI M Left Access ion #: [id number] VH Signs/ Sympto ms: PAIN ASSESS [...] er, , Non Physic yohannes, , , [facility] ([facility] [address] [place] [address], [address], 09/10/2021 10:57:15 10/23/19 21 10/22/2020 XR, hand, 3 or more view [facility] al Depart ment of Radiol ogy [address] [place] [address], [address] [phone] Name: Maggie JOHNSON : [id number] Date of Servic e: 1533 Acct Number : [id number] Order Number : [id number] Locati on: [place] Report Number : [id number] Servic e: REG REF/ Reques ting Physic yohannes: Elena matthews,Corky Villa MD Catego ry: ORTHOP EDIC RADIOL OGY SV Exam: HAND 3 VIEW MINIMU M Left Access ion #: [id number] VH Signs/ Sympto ms: PAIN ASSESS [...] er, , Non Physic yohannes, , , [facility] (Radiology) [address] [place] [address], [address], 09/10/2021 10:57:15 Result Notes None recorded. Problems Name Problem SNOMED Code Status Onset Date Resolution Date Notes Provider Name and Address Organization Details Recorded Time Hypertensive disorder 16901603 Active 2020 Jessica henderson [place] - [facility], [facility] 14:50:19 Anxiety 17836351 Active 2020 Jessica henderson [place] - [facility], [facility] 14:50:27 Hyperlipidemia 30493545 Active 2020 Jessica henderson [place] - [facility], [facility] 14:50:37 Problem Notes None recorded. Procedures Surgical History None recorded. Imaging Results Imaging Date Name Status LastModified by Organiz ation Details LastModified Time 10/22/2020 XR, wrist, 3 or more view completed [facility] (Radiology) [address] [place] [address], [address], 09/10/2021 10:57:15 10/22/2020 XR, hand, 3 or more view completed [facility] (Radiology) [address] [place], [address], 09/10/2021 10:57:15 Procedure Notes None recorded. Medical Equipment None Reported. Allergies Allergen ID Allergen Name Allergen Category Reaction Reaction Severity Criticality Documentation Date Start Date Code Code System Note Provider Name and Address Organization Details Recorded Time 01669 cortisone medicatio n Not available Not available Not available 10/22/2020 2878 RxNorm Jessica henderson, [place] - [facility], [facility] 14:46:46 57258 penicilli n V Not available Not available Not available Not available 10/22/2020 7984 RxNorm Jessica henderson, [place] - [facility] [place], [facility] 14:46:55 [address] Ultracet medicatio n Not available Not available Not available 10/22/2020 42758 2 RxNorm Jessica henderson, [place] - [facility], [facility] 14:47:03 61688 Ultram medicatio n Not available Not available Not available 10/22/2020 73304 6 RxNorm Jessica henderson, [place] - [facility], [facility] 14:47:17 Medications Name Sig Start [...] Updated DateTime 10/22/2020 149.86 cm 28.9 kg/m2 77329.71 g Jessica Cavanaugh [facility], [facility] 10/22/2020 14:46:27 Social History None recorded. Functional Status None recorded. Mental Status None recorded. Family History Nothing Reported. Medical History No medical history recorded. Gynecological HistoryNo gynecological history recorded. Obstetrics History GPAL:G 0 P 0 0 0 0 Past Encounters Encounter ID Performer Location Encounter Start Date Encounter Closed Date Diagnosis/Indication Diagnosis SNOMED-CT Code Diagnosis ICD10 Code Diagnosis Note [id number] Ananth Arana MD S Main Office [address] [place] [address],[address] [place] [address] 10/22/2020 14:38:17 10/23/2020 10:42:43 Pain of left hand 8014396187 03431 M79.642 Health Concerns Section Related Observation LastModified by Organization Detai ls LastModified Time None Recorded Concern Status LastModified by Organization Details LastModified Time None Recorded Advance Directives Directive None Recorded Payers Encounter Date Sequence Insurance Name Policy Number Policy Estes Covered Member ID Estes Member ID Guarantor Name 10/22/2020 1 [place] B[place] [employer] Rebecca Rossy Dony [id number] Rebecca Johnson 10/22/2020 2 [place] [facility] Rebecca Rossy Dony [id number] Rebecca Johnson Notes Date Note Type Note [...] as well as discomfort. Ananth Arana MD [address] [place] [address],[address], [place], [address], [facility] - [facility] [place], [facility] 10/22/2020 15:35:04 OBGyn Episode No OBEpisode recorded.
--- OUTSIDE RECORDS SUMMARY | 2024-11-01 13:06 | XMS_ITS ---
Author Organization [facility] Address [address] [place] [address] [place] [address] Care Team Providers Care Php Mysql Developer Name Role Phone JENISEMarlinJACOBWILFREDO Primary Care Provider Unava jessica Keller Jr, Dre Roldan REASON FOR VISIT anti nausea meds Encounters Encounter Location Date Provider Diagnosis [facility] [address] [place] [address] [place] [address] 10/22/2024 Dre Keller Jr Plan Of Treatment Next Appt Details Provider Name:Dre arenas Jr, 10/28/2025 10:50:00 AM, [address] [place] [address], [address], [place], [address], Progress Notes * DMITRI JOHNSON LDOB:1975 ( 49 yo F)Acc No.[id number]:10/22/2024 Patient:?DMITRI JOHNSON :1975???Age:49 Y???Sex:Female Address:[address] [place], [address] * true * Date:? Generated for Printi ng/Falalithag/eTransmitting on:?11/01/2024 01:05 PM EDT
--- OUTSIDE RECORDS SUMMARY | 2024-11-01 13:06 | XMS_ITS | Patient Health Record ---
Author Organization [facility] Address [address] [place] [address] Care Team Providers Care Supervisor Particleboard Name Role Phone JENISEMarlinJACOB WILFRDEO Primary Care Provider Dre Ceja Jr Unavailable Allergies Allergen (clinical drug ingredient) Drug/Non Drug Allergy documented on EMR Reaction Allergy Type Onset Date Status seasonal allergies (uncoded) Unknown Allergy Active Results Component Value Reference Range Notes NM gastric emptying study Reviewed date:11/23/2023 08:29:57 AM Interpretation: Performing Lab: Notes/Report: [address] [address] Nuclear Medicine Report Signed Patient: Dmitri Johnson MR#: [id number] : 1975 Acct:[id number] Age/Sex: 48 / F ADM Date: 11/15/23 Loc: [facility] Attending Dr: Dre Keller MD Ordering Physician: Dre Keller MD Date of Service: 11/15/23 Procedure(s): NM gastric emptying study Accession Number(s): [id number] cc: Dre Keller MD EXAMINATION: RADIONUCLIDE SOLID [...] in OV> 11/15/23 1530 DD/ 1255 TD/TT: Charge Master Specialist: [place] [address] Nuclear Medicine Report Signed Patient: Dmitri Johnson MR#: [id number] : 1975 Acct:[id number] Age/Sex: 48 / F ADM Date: 11/15/23 Loc: [facility] Attending Dr: Kita Keller MD Ordering Physician: Dre Keller MD Date of Service: 11/15/23 Procedure(s): NM gas tric emptying study Accession Number(s): [id number] cc: Dre Keller MD EXAMINATION: RADIONUCLIDE SOLID [...] in OV> 11/15/23 1530 DD/ 1255 TD/TT: Charge Master Specialist: RR Reason For Referral No Information Medications [...] Problem Status W/U Status Risk Notes Problem 53099775 Epigastric pain (R10.13) Active confirmed Problem 366458435 Irritable bowel syndrome with diarrhea (K58.0) Active confirmed Problem 29837536 Upper abdominal pain (R10.10) Active confirmed Problem 533647045 Gastroesophageal reflux disease, unspecified whether esophagitis present (K21.9) Active confirmed Vital Signs Temperature 96.9 degrees Fahrenheit 10/24/2024 Blood pressure diastolic 01 mm Hg 10/24/2024 Height 60 in 10/24/2024 Blood pressure systolic 001 mm Hg 10/24/2024 Weight 140.4 lbs 10/24/2024 BMI 27.42 kg/m2 10/24/2024 Encounters Encounter Location Date Provider Diagnosis [facility] [address] [place] [phone] 10/24/2024 Dre Keller Jr [facility] [address] [place] [phone] 11/21/2023 Dre Keller Jr [facility] [address] [place] [phone] 10/22/2024 Dre Keller Jr Plan Of Treatment Pending Test Test Name Order Date BUN 12/29/2022 CREATININE 12/29/2022 LIVER PROFILE 12/29/2022 LIPASE 12/29/2022 CBC w/o DIFF 12/29/2022 H PYLORI AG, STOOL 09/09/2022 XR GI SMALL BOWEL SERIES 04/21/2022 US ABD 12/29/2022 NM gastric emptying study 10/26/2023 Next Appt Details Provider Name:Dre arenas Jr, 10/28/2025 10:50:00 AM, [address], [address], [place], [address], Insurance Providers Payer Name Payer Address Payer Phone Subscriber Number Group Number Insured Name Patient Relationship to Insured Coverage Start Date Coverage End Date MEDICARE OF [place] [address] [place] [phone] [id number] DMITRI JOHNSON Self - patient is the insured MEDICAID OF [facility] [address] [place] [address] [phone] [id number] DMITRI JOHNSON Self - patient is the [...]
--- OUTSIDE RECORDS SUMMARY | 2024-11-01 13:06 | XMS_ITS ---
Author Organization [facility] Address [address] [place] [address] Care Team Providers Care Functional Architect Name Role Phone JENISEBIJALCHEKOWILFREDO Primary Care Provider [...] 10/24/2024 Encounters Encounter Location Date Provider Diagnosis [facility] [address] [place] [address] 10/24/2024 Dre Keller Jr Plan Of Treatment Next Appt Details Provider Name:Dre arenas Jr, 10/28/2025 10:50:00 AM, [address], [address], [place], [address], Progress Notes * DMITRI JOHNSON LDOB:1975 ( 49 yo F)Acc No.[id number]:10/24/2024 Progress Notes Patient:?DMITRI JOHNSON Rossy Provider:?Dre Keller MD :1975???Age:49 Y???Sex:Female D ate:10/24/2024 Address:[place] [address] [place] [address] Pcp:WILFREDO RUBIO Subjective: * Chief Complaints: * [...] MD Date:?0 10/24/2024 Generated for Eloy smiley/Valerie/Ar on:?11/01/2024 01:06 PM EDT
== END 2024-11-01 12:01 | disposition home or self-care (01) ==
PROVIDERS: Visit Provider Physician Assistant
DX: M51.26 Other intervertebral disc displacement, lumbar region (principal)
CPT/HCPCS: 99024

== ENCOUNTER → 2024-11-01 11:44 | Outpatient (BNVA) | payer MEDICARE, MEDICAID, SELFPAY | PROVIDERS: Visit Provider Physician Assistant | DX: M51.26 Other intervertebral disc displacement, lumbar region (principal) | CPT/HCPCS: 99212 ==

== ENCOUNTER 2025-01-17 14:27 | Outpatient (REF) | payer MEDICARE, MEDICAID, SELFPAY ==
--- NOTE | ~2025-01-17 | XR_ITS ---
EXAMINATION: XR CERVICAL SPINE CLINICAL INFORMATION: M54.2 - Cervicalgia COMPARISON: None available. TECHNIQUE: AP, lateral, views. Lateral views during flexion and extension position. FINDINGS: Craniocervical junction is intact. Marginal osteophyte formation and endplate sclerosis and decreased intervertebral disc height C4-5 C5-6 and C6-7 levels. Grade 1 retrolisthesis C4-5 8 neutral position which reduces in flexion and extension position. No acute cortical disruption. No lytic or blastic lesions. Rudimentary ribs at C7, bilaterally. XR/XR cervical spine 4V IMPRESSION: Multilevel cervical spondylosis C4 C7 resulting in grade 1 retrolisthesis C4-5 with likely mild instability. Electronically signed by: Jamil Alcantar MD 01/17/2025 03:37 PM EDT
== END 2025-01-17 14:28 | disposition home or self-care (01) ==
LOC: HO.HOSX 14:27
PROVIDERS: Visit Provider Physician Assistant
DX: M54.2 Cervicalgia (principal)
CPT/HCPCS: 72050; 99212

== ENCOUNTER 2025-01-17 14:27 | Outpatient (AMB) | payer MEDICARE, MEDICAID, SELFPAY ==
--- NOTE | 2025-01-17 15:02 | HO.SPINEOV ---
Intake Visit Reasons: neck pain Intake Note: Ms. Napoles is here today c/o neck pain. Film And Video Graphics Designer Required: No Allergies Penicillins Allergy (Severe, Verified 09/13/24 10:52) Hives tramadol (From Ultracet) Allergy (Severe, Verified 09/13/24 10:52) hives prednisone Allergy (Verified 09/13/24 10:52) Difficulty Breathing cortisone Allergy (Severe, Uncoded 09/09/24 14:02) hives Assessment & Plan Assessment & Plan (1) Neck pain: Code(s): M54.2 - Cervicalgia Category: Medical Plan Mrs Napoles is here in follow up today for another issue altogether. About 2-3 weeks ago she woke with pain on the right side of her neck radiating down toward her trapezius and her right shoulder. No associated tingling and numbness down the arms or shooting pain down the arms. She has been doing diclofenac gel, heating pads as well as Tylenol. It seems to help a little but she is still having a lot of difficulty turning her head to the right in his very uncomfortable sleeping. On exam, her strength is good and reflexes are normal. I think she is dealing with a muscular strain right now so I am going to send her to PT and get an x-ray. If she is no better in the next 2-3 weeks with treatment I will order a cervical MRI. Total amount of time spent in this visit was 20 minutes in discussion of symptoms, ordering imaging and subsequent plan of care Jono Munoz MD,PhD [facility] Orders: Orders PT Evaluation and Treatment Today M54.2 - Cervicalgia XR cervical spine 4V Today M54.2 - Cervicalgia Coding Level of Care Code Est Pt Level 3 (51255) Diagnoses Neck pain M54.2
--- OUTSIDE RECORDS SUMMARY | 2025-01-17 15:42 | XMS_ITS | Data Portability ---
Author Organization [facility] Address [address] [place] [address] Care Team Providers Care Spool Cleaner Name Role Phone WILFREDO RUBIO Primary Care [...] findings at length with the patient today. We discussed the nature and etiology of this problem along with current treatment options. We discussed the expected course and outcomes and what to expect. We also discussed risks and benefits. All of their questions were answered today, and there was exhibited understanding and comprehension of all that was discussed. 10 minutes were spent reviewing previous imaging and charting. 10 minutes were spent obtaining patient history. 5 minutes were spent on physical exam. 5minutes were spent explaining diagnosis and assessment. Today's [...] Time Impingement syndrome of right shoulder region 9814980534010 02 Active 2022 Jonathan Valentine MD [address], [place], [address], [place] [facility] 3 14:13:29 Pain of right shoulder joint [id number] 9100 Active 2022 SOULEYMANE BONILLA PA-C [address], [place], [address], [facility] 3 12:48:44 Problem Notes None recorded. Procedures Surgical History Date Name Laterality Status Provider Name and Address Organization Details Recorded Time Shoulder Surgery completed [facility] 11/02/2022 13:57:03 Knee arthroscopy/hurd rgery completed [facility], [facility] 11/02/2022 13:57:11 Carpal tunnel surgery completed [facility] 11/02/2022 13:57:18 delivery completed [facility] 11/02/2022 13:57:26 Imaging Results None recorded. Procedure Notes None recorded. Medical Equipment None Reported. Allergies Allergen ID Allergen Name Allergen Category Reaction Reaction Severity Criticality Documentation Date Start Date Code Code System Note Provider Name and Address Organization Details Recorded Time 1523 cortisone medicatio n Not available Not available Not available 11/02/2022 2878 RxNorm Priyanka Inman [facility], [facility], [facility] 3 13:55:46 1524 Product containin g penicilli n (product) medicatio n Not available Not available Not available 11/02/2022 36765 8001 SNOMED Priyanka Inman [facility], P 3 13:55:52 1525 Ultram medicatio n Not available Not available Not available 11/02/2022 59937 6 RxNorm Priyanka Inman [facility], P 3 13:56:01 Medications Name Sig Start Date Stop [...] Updated DateTime 11/02/2022 149.86 cm 28.7 kg/m2 27664.[address] [place] [facility], 11/02/2022 13:56:47 Social History None recorded. Functional [...] Code Diagnosis Note 3584 MD PHIL Tovar Bondora (by isePankur)[facility] [address] [facility] [address] [facility] [address] [place] [address] 11/02/2022 13:51:59 11/02/2022 14:11:38 Impingement syndrome of right shoulder region [id number] 31351 M75.41 6421 BINA ANGEL Bondora (by isePankur)[facility] [address] [place] [place] [address] 11/19/2022 11:16:13 11/19/2022 13:20:48 Pain of right shoulder joint [id number] 9300400 M25.511 Health Concerns Section Related Observation LastModified by Organization Detai ls LastModified Time None Recorded Concern Status LastModified by Organization Details LastModified Time None Recorded Advance Directives Directive None Recorded Payers Insurance Date Sequence Insurance Name Policy Number Policy Estes Covered Member ID Estes Member ID Guarantor Name 11/02/2022 2 [place] [facility] Rebecca Napoles [id number] Rebecca Napoles 11/02/2022 1 MEDICARE B[place]: [employer] Rebecca Napoles [id number] Rebecca Napoles Notes Date Note Type Note [...] above shoulder height. Jonathan Valentine MD [address] [address], [place], [address], [place] [facility] 11/02/2022 14:14:22 11/19/2022 text/html 47-year-old becky [...] here for follow-up. SOULEYMANE BONILLA PA-C [address] [address], [place], [address], [place] [facility] 11/19/2022 12:49:46 OBGyn Episode No OBEpisode recorded.
== END 2025-01-17 15:24 | disposition home or self-care (01) ==
PROVIDERS: Visit Provider Physician Assistant
DX: M54.2 Cervicalgia (principal)
CPT/HCPCS: 99213

== ENCOUNTER → 2025-01-17 15:23 | Outpatient (BNV) | payer MEDICARE, MEDICAID, SELFPAY | PROVIDERS: Visit Provider Radiology Diagnostic Radiology | DX: M47.812 Spondylosis without myelopathy or radiculopathy, cervical region (principal) | CPT/HCPCS: 72050 ==

== ENCOUNTER 2025-02-07 18:48 | Outpatient (REF) | payer MEDICARE, MEDICAID, SELFPAY ==
--- NOTE | ~2025-02-07 | MR_ITS ---
CLINICAL HISTORY: M54.2 - Cervicalgia MR cervical spine without gadolinium Comparison: None provided Findings: There is straightening of the normal cervical lordosis. Multilevel degenerative changes are present as follows: C2-C3: No significant central canal or neural foraminal narrowing C3-C4: No significant central canal stenosis or neural foraminal narrowing C4-C5: Broad-based disc osteophyte. Flattening of the ventral thecal sac. Mild central canal narrowing. No significant neural foraminal stenosis. C5-C6: Broad-based disc osteophytes flattening of the ventral thecal sac. Mild central canal stenosis. Moderate right neural foraminal narrowing. No significant left neural foraminal stenosis. C6-C7: Broad-based disc osteophyte. No significant central canal stenosis. No significant neural foraminal narrowing C7-T1: No significant central canal or neural foraminal stenosis. No acute fractures or pathologic bone lesions. Visualized intracranial contents are unremarkable. No cervical fluid collections or masses. Cervical cord normal. Cervical vertebral body heights are well-maintained. IMPRESSION: Cervical spine degenerative changes detailed above. This document has been electronically signed by: Grant Bob MD, PHD on 02/10/2025 23:39:50
--- OUTSIDE RECORDS SUMMARY | 2025-02-07 18:50 | XMS_ITS | Patient Health Record ---
Author Organization [facility] Address [address] [place] [address] Care Team Providers Care Passport Support Associate Name Role Phone WILFREDO RUBIO Primary Care Provider Dre Ceja Jr Unavailable Allergies Allergen (clinical drug ingredient) Drug/Non Drug Allergy documented on EMR Reaction Allergy Type Onset Date Status seasonal allergies (uncoded) Unknown Allergy Active Reason For Referral No Information Medications Medication SIG (Take, Route, Frequency, Duration) Notes Start Date End Date Status Pantoprazole Sodium 40 MG 1 tablet 1/2 t o 1 hour before morning meal Once a day for 30 days Active Vitamin B 12 100 MCG as [...] 2-4 TIMES PER DAY for 90 Active Ondansetron HCl 4 MG 1 tablet Orally Twi ce daily for 30 days 11/15/2024 Active Immunizations Vaccine Route Administration Date Status [...] Problem Status W/U Status Risk Notes Problem 47840946 Epigastric pain (R10.13) Active confirmed Problem 425422700 Irritable bowel syndrome with diarrhea (K58.0) Active confirmed Problem 98114585 Upper abdominal pain (R10.10) Active confirmed Problem 094105868 Gastroesophageal reflux disease, unspecified whether esophagitis present (K21.9) Active confirmed Vital Signs Temperature 96.9 degrees Fahrenheit 10/24/2024 Blood pressure diastolic 01 mm Hg 10/24/2024 Height 60 in 10/24/2024 Blood pressure systolic 001 mm Hg 10/24/2024 Weight 140.4 lbs 10/24/2024 BMI 27.42 kg/m2 10/24/2024 Encounters Encounter Location Date Provider Diagnosis [facility] [address] [place] [address] 10/24/2024 Dre Keller Jr Irritable bowel syndrome with diarrhea K58.0 ; Epigastric pain R10.13 and Gastroesophageal reflux disease, unspecified whether esophagitis present K21.9 [facility] [address] [place] [address] 10/22/2024 Dre Keller Jr [facility] [address] [place] [address] 11/14/2024 Dre Keller Jr Assessments Encounter Date Diagnosis (ICD Code) Assessment Notes Treatment Notes Treatment Clinical Notes Section Notes 10/24/2024 Epigastric pain (ICD-10 - R10.13) We prescribed pantoprazole 40 mg twice daily for 1 more month. She can reassess at this time and come down to once daily. We discussed diet, lifestyle modifications, and weight management regarding the treatment of reflux. She will continue dicyclomine for her IBS symptoms and she can use ondansetron twice daily for nausea as needed. Follow-up will be in 12 months. She will call if she has problems sooner. 10/24/2024 Irritable bowel syndrome with diarrhea (ICD-10 - K58.0) We prescribed pantoprazole 40 mg twice daily for 1 more month. She can reassess at this time and come down to once daily. We discussed diet, lifestyle modifications, and weight management regarding the treatment of reflux. She will continue dicyclomine for her IBS symptoms and she can use ondansetron twice daily for nausea as needed. Follow-up will be in 12 months. She will call if she has problems sooner. 10/24/2024 Gastroesophageal reflux disease, unspecified whether esophagitis present (ICD-10 - K21.9) We prescribed pantoprazole 40 mg twice daily for 1 more month. She can reassess at this time and come down to once daily. We discussed diet, lifestyle modifications, and weight management regarding the treatment of reflux. She will continue dicyclomine for her IBS symptoms and she can use ondansetron twice daily for nausea as needed. Follow-up will be in 12 months. She will call if she has problems sooner. Plan Of Treatment Pending Test Test Name Order Date BUN 12/29/2022 CREATININE 12/29/2022 LIVER PROFILE 12/29/2022 LIPASE 12/29/2022 CBC w/o DIFF 12/29/2022 H PYLORI AG, STOOL 09/09/2022 XR GI SMALL BOWEL SERIES 04/21/2022 US ABD 12/29/2022 NM gastric emptying study 10/26/2023 Next Appt Details Provider Name:Dre arenas , 10/28/2025 10:50:00 AM, [address] [place] [address], [address], [place], [address], Insurance Providers Payer Name Payer Address Payer Phone Subscriber Number Group Number Insured Name Patient Relationship to Insured Coverage Start Date Coverage End Date MEDICARE OF [place] [address] [place] [address] [id number] DMITRI JOHNSON Self - patient is the insured MEDICAID OF [facility] [address] [place] [address] [phone] [id number] DMITRI JOHNSON Self - patient is the [...]
--- OUTSIDE RECORDS SUMMARY | 2025-02-07 18:50 | XMS_ITS ---
Author Name [facility] Organization Unknown Encounters Encounter Type Encounter Reason Primary Diagnosis Location Date Ambulatory [facility] 03/09/2023 Ambulatory [facility] 03/09/2023 Ambulatory [facility] 02/28/2023 Ambulatory [facility] 11/03/2022 Care Team Organization Name Specialty Phone Email Start Date End Da te [facility] WILFREDO RUBIO Primary Care 07/01/2022 03/19/2024
--- OUTSIDE RECORDS SUMMARY | 2025-02-07 18:50 | XMS_ITS | Clinical Summary ---
Author Organization [facility] Address [address] [place] [address] Care Team Providers Care Survey Field Technician Name Role Phone Karma Mace Primary Care Provider [phone] Allergies Active Allergy Reactions Criticality Noted Date [...] 2024 08/04/2021, 12/24/2020, 12/03/2020 Influenza Vaccine (#1) 2025 Pneumococcal Vaccine Aged Out No long er eligible based on patient's age to complete this topic RSV Ped < 20 months Aged Out No longe r eligible based on patient's age to complete this topic Care Teams Survey Field Technician Relationship Specialty Start Date End Date Karma Mace [address] [address] [facility] [place] [phone] PCP - General Family Medicine 01/02/18
== END 2025-02-07 18:49 | disposition home or self-care (01) ==
LOC: HO.MRI 18:48
PROVIDERS: PCP Nurse Practitioner Family; Visit Provider Physician Assistant
DX: M54.2 Cervicalgia (principal)
CPT/HCPCS: 72141

== ENCOUNTER → 2025-02-07 19:00 | Outpatient (BNV) | payer MEDICARE, MEDICAID, SELFPAY | PROVIDERS: PCP Nurse Practitioner Family; Visit Provider General Practice | DX: M50.30 Other cervical disc degeneration, unspecified cervical region (principal) | CPT/HCPCS: 72141 ==

== ENCOUNTER 2025-03-28 08:11 | Outpatient (REF) | payer MEDICARE, MEDICAID, SELFPAY ==
--- NOTE | ~2025-03-28 | XR_ITS ---
EXAMINATION: XR CERVICAL SPINE 2-3 VIEWS HISTORY: M54.2 - Cervicalgia COMPARISON: Comparison is made with the prior examination dated 01/17/2025. FINDINGS: AP, lateral, and open-mouth odontoid views of the cervical spine are submitted. Osseous mineralization is normal. Seven cervical vertebral bodies are identified maintaining normal height and alignment without evidence of fracture or subluxation. There is moderate to severe degenerative disc disease from C4 through C7 with disc space narrowing and osteophyte formation. 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 The odontoid and lateral masses of C1 are intact. There is no prevertebral soft tissue swelling. XR/XR cervical spine 2V IMPRESSION: Bilateral hypoplastic cervical ribs. Moderate to severe degenerative disc disease from C4 through C7. Electronically signed by: Solomon Gurrola MD 03/28/2025 02:26 PM EDT
--- OUTSIDE RECORDS SUMMARY | 2025-03-29 08:54 | XMS_ITS | Clinical Summary ---
Author Organization [facility] Address [address] [place] [address] Care Team Providers Care Wind Power Project Manager Name Role Phone Karma Mace Primary Care Provider +1- [phone] Allergies Active Allergy Reactions Criticality Noted Date [...] age to complete this topic Care Teams Wind Power Project Manager Relationship Specialty Start Date End Date Karma Mace [address] [address] [facility] [place] [phone] PCP - General Family Medicine 01/02/18
--- OUTSIDE RECORDS SUMMARY | 2025-03-29 08:54 | XMS_ITS | Patient Health Record ---
Author Organization [facility] Address [address] [place] [address] Care Team Providers Care Commercial Fisherman Name Role Phone WILFREDO RUBIO Primary Care [...] Problem Status W/U Status Risk Notes Problem [id number] Epigastric pain (R10.13) Active confirmed Problem 026996053 Irritable bowel syndrome with diarrhea (K58.0) Active confirmed Problem 87956177 Upper abdominal pain (R10.10) Active confirmed Problem 362213396 Gastroesophageal reflux disease, unspecified whether esophagitis present (K21.9) Active confirmed Vital Signs Temperature 96.9 degrees Fahrenheit 10/24/2024 Blood pressure diastolic 01 mm Hg 10/24/2024 Height 60 in 10/24/2024 Blood pressure systolic 001 mm Hg 10/24/2024 Weight 140.4 lbs 10/24/2024 BMI 27.42 kg/m2 10/24/2024 Encounters Encounter Location Date Provider Diagnosis [facility] [address] [place] [phone] 10/24/2024 Dre Keller Jr Irritable bowel syndrome with diarrhea K58.0 ; Epigastric pain R10.13 and Gastroesophageal reflux disease, unspecified whether esophagitis present K21.9 [facility] [address] [place] [phone] 10/22/2024 Dre Keller Jr [facility] [address] [place] [phone] 11/14/2024 Dre Keller Jr Assessments Encounter Date [...] Provider Name:Dre arenas , 10/28/2025 10:50:00 AM, [address] [place] [address], [address], [place], [address], Insurance Providers Payer Name Payer Address Payer Phone Subscriber Number Group Number Insured Name Patient Relationship to Insured Coverage Start Date Coverage End Date MED[place]ARE OF [place] [address] [place] [address] [id number] DMITRI JOHNSON Self - patient is the insured MEDICAID OF [facility] [address] [place] [address] [phone] [id number] DMITRI JOHNSON Self - patient is the [...]
== END 2025-03-28 08:12 | disposition home or self-care (01) ==
LOC: HO.HOSX 08:11
PROVIDERS: Visit Provider Orthopaedic Surgery
DX: M54.2 Cervicalgia (principal); Z79.899 Other long term (current) drug therapy; Z79.82 Long term (current) use of aspirin
CPT/HCPCS: 72040; 99212

== ENCOUNTER 2025-03-28 13:43 | Outpatient (AMB) | payer MEDICARE, MEDICAID, SELFPAY ==
--- NOTE | 2025-03-28 13:59 | MHC.OFFVIS ---
Intake Visit Reasons: OV-Rt shoulder/neck pain f/u Intake Note: Rebecca is a 49 year old female who presents today as a follow up for her Right shoulder and neck pain pain. The patient continues with her home stretching program. She reports intermittent weakness in her right arm. She has taken Tylenol and anti-inflammatory medicines which gave her only mild relief. She recently had an MRI of her cervical spine. Allergies Penicillins Allergy (Severe, Verified 03/28/25 14:05) Hives tramadol (From Ultracet) Allergy (Severe, Verified 03/28/25 14:05) hives prednisone Allergy (Verified 03/28/25 14:05) Difficulty Breathing cortisone Allergy (Severe, Uncoded 09/09/24 14:02) hives Medication List - Last Reconciled 03/28/25 by Jonathan Valentine MD acetaminophen ER 650 mg PO Q8H PRN albuterol sulfate 90 mcg/actuation (Ventolin HFA) 2 puffs inhalation QID PRN aspirin 81 mg PO DAILY Held on 09/06/24. Instructions: Resume on 09/13/24. You can resume asprin 7 days after surgery atorvastatin 20 mg PO DAILY cyanocobalamin (vitamin B-12) (Vitamin B-12) 1,000 mcg PO DAILY diazepam (Valium) 5 mg PO Q8H PRN diclofenac sodium 1% 1 g topical BID docusate sodium (Colace) 100 mg PO BID erenumab-aooe (Aimovig Autoinjector) 70 mg subcut Q28D levothyroxine 100 mcg PO DAILY ondansetron HCl 8 mg PO Q8H PRN pantoprazole 40 mg PO DAILY rizatriptan 10 mg PO DAILY PRN PFSH Medical History (Updated 01/17/25 @ 15:13 by NIOCLASA Kingsley) Neck pain No natural teeth Degenerative arthritis Arthritis Back pain Right ovarian cyst Renal calculi Weakness of right leg Hx of thyroid irradiation (~1994) PONV (postoperative nausea and vomiting) Cervical disc disease Anxiety Depression Hypothyroidism Migraines GERD (gastroesophageal reflux disease) Elevated cholesterol Asthma Hyperthyroidism Surgical History (Updated 08/24/24 @ 12:19 by Taylor Cummins RN) Hx of tonsillectomy History of carpal tunnel release Hx of tubal ligation History of esophagogastroduodenoscopy (EGD) H/O colonoscopy Hx of arthroscopy of right knee History of partial hysterectomy History of toe surgery History of 3 sections History of arthroscopy of left knee History of shoulder surgery Social History (Updated 04/21/23 @ 09:20 by Delores Sullivan CMA) Household Members: Significant Other Housing: House Are you a 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 tire care manager to a significant other at home: Yes (son) Do you presently have visiting nurse or other home services: No Alcohol intake: never Patient Tobacco Use Status: Current everyday Tobacco user Tobacco use type: Cigarette Cigarette Packs Per Day: 0.5 Cigarettes Per Day: 10 Second Hand Smoke Exposure: No Current occupational status: disabled 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 Napoles presents with intermittent neck pain which radiates into her right arm possibly due to neural foraminal stenosis at level C5-C6. The patient does not wish for a Medrol Dosepak. The patient states that she will make a follow-up appointment with her next specialist. She will contact me prior to that appointment should her symptoms worsen in any way. I spent 22 minutes in reviewing the patient's records and imaging studies, seeing the patient and documenting in the medical record. Orders: Orders XR cervical spine 2V Today M54.2 - Cervicalgia Coding Level of Care Code Est Pt Level 3 (85555) Complex EM visit Add On G2211 Diagnoses Neck pain M54.2
--- OUTSIDE RECORDS SUMMARY | 2025-03-28 14:27 | XMS_ITS | Patient Health Record ---
Author Organization [facility] Address [address] [place] [address] Care Team Providers Care Recreation Officer Name Role Phone WILFREDO RUBIO Primary Care [...] Problem Status W/U Status Risk Notes Problem [id number] Epigastric pain (R10.13) Active confirmed Problem [id number] Irritable bowel syndrome with diarrhea (K58.0) Active confirmed Problem 91920892 Upper abdominal pain (R10.10) Active confirmed Problem 645888307 Gastroesophageal reflux disease, unspecified whether esophagitis present (K21.9) Active confirmed Vital Signs Temperature 96.9 degrees Fahrenheit 10/24/2024 Blood pressure diastolic 01 mm Hg 10/24/2024 Height 60 in 10/24/2024 Blood pressure systolic 001 mm Hg 10/24/2024 Weight 140.4 lbs 10/24/2024 BMI 27.42 kg/m2 10/24/2024 Encounters Encounter Location Date Provider Diagnosis [facility] [address] [place] [phone] 10/24/2024 Dre Keller Jr Irritable bowel syndrome with diarrhea K58.0 ; Epigastric pain R10.13 and Gastroesophageal reflux disease, unspecified whether esophagitis present K21.9 [facility] [address] [place] [phone] 10/22/2024 Dre Keller Jr [facility] [address] [place] [phone] 11/14/2024 Dre Keller Jr Assessments Encounter Date [...] Provider Name:Dre arenas , 10/28/2025 10:50:00 AM, [address] [place] [address], [address], [place], [address], Insurance Providers Payer Name Payer Address Payer Phone Subscriber Number Group Number Insured Name Patient Relationship to Insured Coverage Start Date Coverage End Date MED[place]ARE OF [place] [address] [place] [address] [id number] DMITRI JOHNSON Self - patient is the insured MEDICAID OF [facility] [address] [place] [address] [id number] DMITRI JOHNSON Self - patient is the [...]
--- OUTSIDE RECORDS SUMMARY | 2025-03-28 14:27 | XMS_ITS | Clinical Summary ---
Author Organization [facility] Address [address] [place] [address] Care Team Providers Care Spark Plug Tester Name Role Phone Karma Mace Primary Care Provider +1- [phone] Allergies Active Allergy Reactions Criticality Noted Date [...] age to complete this topic Care Teams Spark Plug Tester Relationship Specialty Start Date End Date Karma Mace [address] [address] [facility] [place] [phone] PCP - General Family Medicine 01/02/18
== END 2025-03-28 14:14 | disposition home or self-care (01) ==
LOC: HO.HOS 13:44
PROVIDERS: PCP Nurse Practitioner Family; Visit Provider Orthopaedic Surgery
DX: M54.2 Cervicalgia (principal)
CPT/HCPCS: 99213; G2211

== ENCOUNTER → 2025-03-28 13:53 | Outpatient (BNV) | payer MEDICARE, MEDICAID, SELFPAY | PROVIDERS: Visit Provider Radiology Diagnostic Radiology | DX: M50.321 Other cervical disc degeneration at C4-C5 level (principal); M50.322 Other cervical disc degeneration at C5-C6 level; M50.323 Other cervical disc degeneration at C6-C7 level | CPT/HCPCS: 72040 ==

== ENCOUNTER 2025-04-05 11:22 | Outpatient (AMB) | payer MEDICARE, MEDICAID, SELFPAY ==
--- NOTE | 2025-04-05 11:37 | HO.SPINEOV ---
Intake Visit Reasons: neck issues Intake Note: Ms. Napoles is here today c/o neck pain. Manager Program Management Required: No Allergies Penicillins Allergy (Severe, Verified 04/05/25 11:38) Hives tramadol (From Ultracet) Allergy (Severe, Verified 04/05/25 11:38) hives prednisone Allergy (Verified 04/05/25 11:38) Difficulty Breathing cortisone Allergy (Severe, Uncoded 09/09/24 14:02) hives Assessment & Plan Assessment & Plan (1) Cervical disc disease: Code(s): M50.90 - Cervical disc disorder, unspecified, unspecified cervical region Category: Medical Plan Mrs Napoles followed up with Dr. Munoz and myself today. We saw her over the summer for a neck pain going into her right trapezius toward her shoulder. Follow up MRI imaging did not reveal any significant pathology that we thought would be amenable with surgery. She comes back in today for another follow-up. The pain is no better. She still has tremendous pain when she turns her head to the right. She is reluctant to do physical therapy and can not tolerate cortisone injections because it gives her hives. Her exam is otherwise nonfocal but she does have limited range of motion. Dr. Munoz and I reviewed her imaging done at [place] again and we do not see any evidence of nerve impingement that would explain radicular pain down into the shoulder. In terms of just strictly the disc degeneration that she has, her presentation is not typical of chronic neck pain issues that has been going on for years. This is more of an acute flare-up situation that started a number of months ago. Therefore we think this is most likely muscular and would pass on its own with some gentle therapy however she is very reluctant to participate and do that. Unfortunately we do not have any surgery to offer her to fix this. Total amount of time spent in this visit was 20 minutes in discussion of symptoms, cervical imaging results and subsequent plan of care Jono Munoz MD,PhD [facility] Coding Level of Care Code Est Pt Level 3 (62085) Diagnoses Cervical disc disease M50.90
--- OUTSIDE RECORDS SUMMARY | 2025-04-05 12:23 | XMS_ITS | Patient Health Record ---
Author Organization [facility] Address [address] [place] [phone] Care Team Providers Care Solar Sales Energy Advisor Name Role Phone WILFREDO RUBIO Primary Care Provider Dre Ceja Jr Unavailable [phone] Allergies Allergen (clinical drug ingredient) Drug/Non Drug [...] Problem Status W/U Status Risk Notes Problem 03031011 Epigastric pain (R10.13) Active confirmed Problem 812548818 Irritable bowel syndrome with diarrhea (K58.0) Active confirmed Problem 71647487 Upper abdominal pain (R10.10) Active confirmed Problem 011601995 Gastroesophageal reflux disease, unspecified whether esophagitis present (K21.9) Active confirmed Vital Signs Temperature 96.9 degrees Fahrenheit 10/24/2024 Blood pressure diastolic 01 mm Hg 10/24/2024 Height 60 in 10/24/2024 Blood pressure systolic 001 mm Hg 10/24/2024 Weight 140.4 lbs 10/24/2024 BMI 27.42 kg/m2 10/24/2024 Encounters Encounter Location Date Provider Diagnosis [facility] [address] [place] [phone] 10/24/2024 Dre Keller Jr Irritable bowel syndrome with diarrhea K58.0 ; Epigastric pain R10.13 and Gastroesophageal reflux disease, unspecified whether esophagitis present K21.9 [facility] [address] [place] [phone] 10/22/2024 Dre Keller Jr [facility] [address] [place] [phone] 11/14/2024 Dre Keller Jr Assessments Encounter Date [...] Provider Name:Dre arenas , 10/28/2025 10:50:00 AM, [address] [place] [address], [address], [place], [address], Insurance Providers Payer Name Payer Address Payer Phone Subscriber Number Group Number Insured Name Patient Relationship to Insured Coverage Start Date Coverage End Date MEDICARE OF [place] [address] [place] [address] [id number] DMITRI JOHNSON Self - patient is the insured MEDICAID OF [facility] [address] [place] [address] [phone] [id number] DMITRI JOHNSON Self - patient is the [...]
--- OUTSIDE RECORDS SUMMARY | 2025-04-05 12:23 | XMS_ITS | Clinical Summary ---
Author Organization [facility] Address [address] [place] [address] Care Team Providers Care Food Porter Name Role Phone Karma Mace Primary Care Provider +1- [phone] Allergies Active Allergy Reactions Criticality Noted Date [...] f 2) 2023 COVID-19 Vaccine (4 - 2024-2 6 season) 2025 08/04/2021, 12/24/2020, 12/03/2020 Influenza Vaccine (#1) 2025 Pneumococcal Vaccine Aged Out No long er eligible based on patient's age to complete this topic RSV Ped < 20 months Aged Out No longe r eligible based on patient's age to complete this topic Care Teams Food Porter Relationship Specialty Start Date End Date Karma Mace [address] [address] [facility] [place] [phone] PCP - General Family Medicine 01/02/18
== END 2025-04-05 12:19 | disposition home or self-care (01) ==
LOC: HO.HNS 11:23
PROVIDERS: PCP Nurse Practitioner Family; Visit Provider Physician Assistant
DX: M50.90 Cervical disc disorder, unspecified, unspecified cervical region (principal)
CPT/HCPCS: 99213

== ENCOUNTER → 2025-04-05 11:22 | Outpatient (BNVA) | payer MEDICARE, MEDICAID, SELFPAY | PROVIDERS: PCP Nurse Practitioner Family; Visit Provider Physician Assistant | DX: M50.90 Cervical disc disorder, unspecified, unspecified cervical region (principal) | CPT/HCPCS: 99212 ==